=== PATIENT | female | born 1930 | race Caucasian/White ===

== ENCOUNTER → 2017-03-25 | Outpatient (CLI) | payer OTHER ==
[~2017-03-25] MED LIST: ACET325T96 PO; CALC500C70 PO; DEXL60CA4 PO; LEVO125T5 PO; SIMV20TA2 PO
== END | disposition home or self-care (01) ==
LOC: C.RDSM 14:50
PROVIDERS: ATTEND Physical Medicine & Rehabilitation Sports Medicine
DX: Z96.612 Presence of left artificial shoulder joint (principal)

== ENCOUNTER → 2017-09-23 | Outpatient (CLI) | payer OTHER | END | disposition home or self-care (01) | LOC: C.RDSM 10:46 | PROVIDERS: ATTEND Physical Medicine & Rehabilitation Sports Medicine | DX: M25.512 Pain in left shoulder (principal); Z96.612 Presence of left artificial shoulder joint ==

== ENCOUNTER → 2017-11-26 | Outpatient (CLI) | payer OTHER ==
--- NOTE | 2017-11-27 13:40 | MAMMOGRAPHY REPORT ---
BILATERAL DIGITAL SCREENING MAMMOGRAM WITH CAD: 11/26/2017 CLINICAL HISTORY: Routine screening. Patient has no complaints. TECHNIQUE: Bilateral CC and MLO views were obtained. Current study was also evaluated with a Compute r Aided Detection (CAD) system. COMPARISON: Comparison is made to exams dated: 11/09/2016 mammogram, 10/04/2015 mammogram, 10/01/2014 mammogram, 09/30/2013 mammogram, and 09/29/2012 mammogram - [facility]. BREAST COMPOSITION: There are scattered areas of fibroglandular density in both breasts. FINDINGS: There are stable asymmetries in the right upper outer quadrant. Scattered bilateral benig n round and rim calcifications, and a stable metallic biopsy marker in the right upper outer quadrant . No new suspicious mass, architectural distortion or cluster of microcalcifications is seen. IMPRESSION: ACR BI-RADS CATEGORY 1: NEGATIVE There is no mammographic evidence of malignancy. A 1 year screening mammogram is recommended. The pa tient will receive written notification of the results. Approximately 10% of breast cancers are not detected with mammography. A negative mammographic report should not delay biopsy if a clinically suggestive mass is present. Paty Richards M.D. ay/:11/26/2017 15:59:03 Hand Filer Balance Wheel: Roberta DELCID(R)(M), [facility] letter sent: Normal 1/2 BI-RADS Code: ACR BI-RADS Category 1: Negative
== END | disposition home or self-care (01) ==
LOC: C.MAMM 15:22
PROVIDERS: ATTEND Internal Medicine Critical Care Medicine
DX: Z12.31 Encounter for screening mammogram for malignant neoplasm of breast (principal)

== ENCOUNTER 2018-03-10 11:20 | Emergency (ER) | payer OTHER ==
[~2018-03-10] VITALS: Ht 167.6 cm; Wt 98.0 kg
[~2018-03-10 11:20] MED LIST changes: +ACET-1693 PO; -ACET325T96 PO
[2018-03-10 11:36] VITALS: TEMP 37.4; Ht 167.6 cm; Wt 98.0 kg
--- NOTE | 2018-03-10 13:28 | EMERGENCY ROOM VISIT NOTE ---
History Report prepared by Nagi: Troy Florez Under the Supervision of: Dr. Anamaria Bonilla D.O. First contact with patient: 13:17 Chief Complaint: GI ASSESSMENT Stated Complaint: TESTS FOR DR MEYER Nursing Triage Summary: was sent by Dr Meyer for ?diverticulitis symptoms have been for the past 4 days. lower abdomen pain History of Present Illness The patient is an 87 year old female who presents to the Emergency Room with complaints of a persistent illness that started 3 days ago. She states that after dinner 3 days ago, she felt so tired that she almost could not move from her chair. The patient notes that she had not been moving her bowels well recently which was unusual for her. She says that 2 days ago, she started running a temperature up to 100, and has been having pains in her lower abdomen that is fairly constant. She adds that she could have a bowel movement, but had to strain. However, yesterday morning, her bowels started loosening up, and she had some diarrhea with associated lightheadedness and weakness. She adds that she has been feeling a bit nauseous. She denies any vomiting, back pain, or urinary symptoms. The patient states that this morning she woke up around 0530 and had a bowel movement, but it was "like little animal crackers". She scheduled an appointment with Dr. Meyer this morning, and saw Dr. Meyer this morning, and was then sent here for rule-out diverticulitis. She notes no history of diverticulitis. She notes nothing out of the ordinary recently, including any new foods, or recent travels. Source of History: patient Onset: 3 days ago Position: other (global) Quality: other (illness) Associated Symptoms: + fevers, + nausea, + abdominal pain (lower), + diarrhea, + fatigue, + weakness, No vomiting, No back pain, No urinary symptoms Note: Lightheadedness. Review of Systems See HPI for pertinent positives & negatives. A total of 10 systems reviewed and were otherwise negative. Past Medical & Surgical Medical Problems: (1) DJD of shoulder (2) Hypothyroidism Family History FH: lung disease Social History Smoking Status: Never Smoker Drug Use: none Marital Status: Housing Status: lives with family Occupation Status: retired Current/Historical Medications Scheduled Calcium/Vitamin D (Os-Cordell 500 Plus D), 1 TABLET PO HS Dexlansoprazole (Dexilant), 60 MG PO QAM Levothyroxine Sodium (Levothyroxine Sodium), 1 TAB PO QAM Simvastatin (Zocor), 20 MG PO HS Scheduled PRN Acetaminophen Tab (Tylenol), 650 MG PO DIRECTED PRN for Pain or Fever Allergies Coded Allergies: Penicillins (Verified Allergy, Intermediate, RASH, 03/10/18) RASH Adhesives (Verified Allergy, Unknown, ADHESIVE TAPE-rash redness, 03/10/18) Nickel (Verified Allergy, Unknown, IRRITATION, 03/10/18) Oxycodone (Verified Adverse Reaction, Unknown, SEVERE VOMITING, 03/10/18) Physical Exam Vital Signs Date Time Temp Pulse Resp B/P (MAP) Pulse Ox O2 Delivery O2 Flow Rate FiO2 03/10/18 17:08 76 16 153/77 94 03/10/18 15:22 85 16 168/79 97 Room Air 03/10/18 13:06 76 16 150/74 96 03/10/18 11:36 37.4 87 18 131/82 95 Room Air Physical Exam GENERAL: alert, well appearing, well nourished, no distress, non-toxic EYE EXAM: normal conjunctiva, PERRL and EOM's grossly intact OROPHARYNX: no exudate, no erythema, lips, buccal mucosa, and tongue normal and mucous membranes are moist NECK: supple, no nuchal rigidity, no adenopathy, non-tender LUNGS: Clear to auscultation. Normal chest wall mechanics, no w/r/r HEART: no murmurs, S1 normal and S2 normal ABDOMEN: abdomen soft, non-tender, normo-active bowel sounds, no masses, no rebound or guarding. BACK: Back is symmetrical on inspection and there is no deformity, no midline tenderness, no CVA tenderness. SKIN: no rashes and no bruising UPPER EXTREMITIES: upper extremities are grossly normal. FROM, nml pulses. LOWER EXTREMITIES: No pitting edema. FROM, nml pulses. NEURO EXAM: Normal sensorium, cranial nerves II-XII grossly intact, normal speech, no gross weakness of arms, no gross weakness of legs. Medical Decision & Procedures ER Provider Diagnostic Interpretation: CT results have been interpreted by the radiologist and reviewed by me. ABD/PELVIS IV CONTRAST ONLY CLINICAL HISTORY: 87 years-old Female presenting with lower abd pain, nausea. TECHNIQUE: Multidetector CT of the abdomen and pelvis was performed after the administration of intravenous contrast. IV contrast: 117 mL of Optiray 320. A dose lowering technique was used consistent with the principles of ALARA (as low as reasonably achievable). COMPARISON: None. CT DOSE (mGy.cm): The estimated cumulative dose is 722.73 mGy.cm. FINDINGS: Mud Trucker topogram: Bilateral total hip arthroplasties. Lung bases: Minimal basilar opacities, likely atelectasis. Normal heart size. No pericardial or pleural effusion. Liver: Normal morphology. No liver lesion. Patent hepatic vasculature. Biliary: No intrahepatic or extrahepatic biliary ductal dilatation. Normal gallbladder. Pancreas: Mild parenchymal atrophy. Spleen: Normal. Adrenal glands: Normal. Kidneys and ureters: Several hypodensities noted in the left kidney, indeterminate but likely simple cysts. No nephrolithiasis. No hydronephrosis. Bilateral extrarenal pelvises. Evaluation of the distal ureters is limited due to extensive streak artifact in the pelvis. Allowing for this, ureters normal. Bladder: Grossly normal allowing for streak artifact. Pelvic organs: Uterus and ovaries are grossly normal allowing for streak artifact. Bowel: Limited diverticulosis of the distal sigmoid colon. No pericolonic fat infiltration. The appendix is normal. No bowel obstruction. Peritoneal cavity: No free fluid or intraperitoneal gas. Mild infiltration of the small bowel mesentery with associated subcentimeter reactive lymph nodes, likely indicating mesenteric panniculitis. Lymph nodes: No pathologically enlarged lymph nodes in abdomen or pelvis. Vasculature: Atherosclerosis of the normal caliber abdominal aorta. IVC patent. Abdominal wall: Normal. Musculoskeletal: Degenerative changes of the spine. Bilateral total hip arthroplasties. Radiolucency surrounds the acetabular component and screw in the right hip. IMPRESSION: 1. Limited diverticulosis of the distal sigmoid colon without evidence of diverticulitis. 2. 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 This could be variably symptomatic. 3. Radiolucency surrounds the acetabular component and screw in the right hip prosthesis. This raises concern for osteolysis/particle disease. 4. Evaluation of the pelvic organs is limited due to extensive streak artifact arising from the bilateral total hip arthroplasties. Electronically signed by: Brandon Pichardo M.D. 03/10/2018 3:25 PM Dictated Date/Time: 03/10/2018 3:20 PM Laboratory Results 03/10/18 13:15 Red Blood Count 4.39, Mean Corpuscular Volume 93.2, Mean Corpuscular Hemoglobin 31.2, Mean Corpuscular Hemoglobin Concent 33.5, Mean Platelet Volume 10.4, Neutrophils (%) (Auto) 63.9, Lymphocytes (%) (Auto) 16.2, Monocytes (%) (Auto) 17.7, Eosinophils (%) (Auto) 1.8, Basophils (%) (Auto) 0.3, Neutrophils # (Auto ) 4.38, Lymphocytes # (Auto) 1.11, Monocytes # (Auto) 1.21, Eosinophils # (Auto ) 0.12, Basophils # (Auto) 0.02 03/10/18 13:15 Test 03/10/18 13:15 03/10/18 13:50 03/10/18 15:44 White Blood Count 6.85 K/uL (4.8-10.8) Red Blood Count 4.39 M/uL (4.2-5.4) Hemoglobin 13.7 g/dL (12.0-16.0) Hematocrit 40.9 % (37-47) Mean Corpuscular Volume 93.2 fL (80-100) Mean Corpuscular Hemoglobin 31.2 pg (25-34) Mean Corpuscular Hemoglobin Concent 33.5 g/dl (32-36) Platelet Count 283 K/uL (130-400) Mean Platelet Volume 10.4 fL (7.4-10.4) Neutrophils (%) (Auto) 63.9 % Lymphocytes (%) (Auto) 16.2 % Monocytes (%) (Auto) 17.7 % Eosinophils (%) (Auto) 1.8 % Basophils (%) (Auto) 0.3 % Neutrophils # (Auto) 4.38 K/uL (1.4-6.5) Lymphocytes # (Auto) 1.11 K/uL (1.2-3.4) Monocytes # (Auto) 1.21 K/uL (0.11-0.59) Eosinophils # (Auto) 0.12 K/uL (0-0.5) Basophils # (Auto) 0.02 K/uL (0-0.2) RDW Standard Deviation 48.2 fL (36.4-46.3) RDW Coefficient of Variation 14.1 % (11.5-14.5) Immature Granulocyte % (Auto) 0.1 % Immature Granulocyte # (Auto) 0.01 K/uL (0.00-0.02) Prothrombin Time 9.7 SECONDS (9.0-12.0) Prothromb Time International Ratio 0.9 (0.9-1.1) Anion Gap 10.0 mmol/L (3-11) Est Creatinine Clear Calc Drug Dose 57.8 ml/min Estimated GFR () 73.5 Estimated GFR (Non- 63.4 BUN/Creatinine Ratio 11.8 (10-20) Calcium Level 8.9 mg/dl (8.5-10.1) Total Bilirubin 0.2 mg/dl (0.2-1) Aspartate Amino Transf (AST/SGOT) 30 U/L (15-37) Alanine Aminotransferase (ALT/SGPT) 22 U/L (12-78) Alkaline Phosphatase 96 U/L (45-117) Troponin I < 0.015 ng/ml (0-0.045) Total Protein 7.6 gm/dl (6.4-8.2) Albumin 3.6 gm/dl (3.4-5.0) Globulin 4.0 gm/dl (2.5-4.0) Albumin/Globulin Ratio 0.9 (0.9-2) Lipase 139 U/L (73-393) Bedside Lactic Acid Venous 0.48 mmol/L (0.90-1.70) Urine Color YELLOW Urine Appearance CLEAR (CLEAR) Urine pH 5.5 (4.5-7.5) Urine Specific [place] 1.019 (1.000-1.030) Urine Protein NEG (NEG) Urine Glucose (UA) NEG (NEG) Urine Ketones NEG (NEG) Urine Occult Blood NEG (NEG) Urine Nitrite NEG (NEG) Urine Bilirubin NEG (NEG) Urine Urobilinogen NEG (NEG) Urine Leukocyte Esterase NEG (NEG) Laboratory results per my review. Medications Administered Medications (Trade) Dose Ordered Sig/Casimiro Route Start Time Stop Time Status Last Admin Dose Admin Sodium Chloride 1,000 ml @ 250 mls/hr Q4H STAT IV 03/10/18 13:35 03/10/18 17:31 DC 4/9/18 13:58 250 MLS/HR ECG Per My Interpretation Indication: nausea Rate (beats per minute): 71 Rhythm: normal sinus Findings: PVC, no acute ischemic change, other (normal axis, normal intervals) ED Course 1319: The patient was evaluated in room A10. A complete history and physical exam was performed. 1335: NSS 1000 ml @ 250 mls/hr IV. 1645: Upon reevaluation, the patient is feeling better. I discussed the findings and the treatment plan with the patient. She verbalizes agreement and understanding. She will be discharged home. Medical Decision Differential diagnoses includes but is not limited to gastritis, peptic ulcer disease, GERD, gallbladder disease, pancreatitis, small bowel obstruction, acute coronary syndrome, pericarditis, ischemic bowel, irritable bowel disease, irritable bowel syndrome, appendicitis, diverticulitis, malignancy, hernia, urinary tract infection, torsion, perforation, trauma, infectious. Patient well-appearing here despite complaints. Patient made aware of all labs and imaging findings. Vital signs stable throughout, patient afebrile. Patient offered additional pain and nausea medication which she declined. Discussed with patient continued use of routine medications, close follow-up with family doctor, symptoms to watch and return for, diet and hydration, she verbalized understanding was agreeable with plan. Patient tolerated p.o. here without any recurrent symptoms, was well-appearing at time of discharge. I do not suspect other occult vascular etiology, no evidence of perforation, GI bleed , or other occult infection. No evidence of UTI, I do not suspect other pathology. Medication Reconcilliation Current Medication List: was personally reviewed by me Blood Pressure Screening Patient's blood pressure: Elevated blood pressure Blood pressure disposition: Elevated BP felt to be situational Impression Primary Impression: Abdominal pain Additional Impression: Mesenteric panniculitis Scribe Attestation The scribe's documentation has been prepared under my direction and personally reviewed by me in its entirety. I confirm that the note above accurately reflects all work, treatment, procedures, and medical decision making performed by me. Departure Information Dispostion Home / Self-Care Referrals Brandon Meyer M.D. (PCP) Patient Instructions My [facility] Additional Instructions Please drink plenty of clear liquids and frequent intervals to stay well- hydrated. You may eat as tolerated. Please continue your regular medications as prescribed. Please call follow-up with your family doctor to assure that you are getting better. If you have any worsening pain, develop worsening nausea or vomiting, fevers or chills, noticed black or bloody stools, have worsening diarrhea, difficulty urinating, or any other new concerns, please return to the emergency room. Problem Qualifiers Primary Impression: Abdominal pain Abdominal location: lower abdomen, unspecified Qualified Codes: R10.30 - Lower abdominal pain, unspecified
[2018-03-10] MEDS ORDERED: SODIUM CHLORIDE 0.9% 1000ML 1,000 ML IV STA (13:35)
[2018-03-10 13:45] LABS: BASO % 0.3 %; BASO ABS # 0.02 K/uL (0-0.2); EOS % 1.8 %; EOS ABS # 0.12 K/uL (0-0.5); HEMATOCRIT 40.9 % (37-47); HEMOGLOBIN 13.7 g/dL (12.0-16.0); IG# 0.01 K/uL (0.00-0.02); LYMPH % 16.2 %; LYMPH ABS # 1.11 K/uL (1.2-3.4); MEAN CELL VOLUME 93.2 fL (80-100); MEAN CORPUSCULAR HEMOGLOBIN 31.2 pg (25-34); MEAN CORPUSCULAR HGB CONC 33.5 g/dl (32-36); MEAN PLATELET VOLUME 10.4 fL (7.4-10.4); MONO % 17.7 %; MONO ABS # 1.21 K/uL (0.11-0.59); NEUT % 63.9 %; NEUT ABS # 4.38 K/uL (1.4-6.5); PLATELET COUNT 283 K/uL (130-400); RED CELL DISTRIBUTION WIDTH CV 14.1 % (11.5-14.5); RED CELL DISTRIBUTION WIDTH SD 48.2 fL (36.4-46.3); WHITE BLOOD COUNT 6.85 K/uL (4.8-10.8)
[2018-03-10] MEDS ORDERED: OPTIRAY 320 IV PRN (13:45)
[2018-03-10 13:50] LABS: INR 0.9 (0.9-1.1)
[2018-03-10 13:56] LABS: LIPASE 139 U/L (73-393)
[2018-03-10 14:26] LABS: ALBUMIN 3.6 gm/dl (3.4-5.0); CALCIUM 8.9 mg/dl (8.5-10.1); CREATININE 0.84 mg/dl (0.60-1.20); POTASSIUM 3.8 mmol/L (3.5-5.1)
[2018-03-10 14:29] LABS: TOTAL PROTEIN 7.6 gm/dl (6.4-8.2)
--- NOTE | 2018-03-10 15:27 | DIAGNOSTIC IMAGING REPORT ---
ABD/PELVIS IV CONTRAST ONLY CLINICAL HISTORY: 87 years-old Female presenting with lower abd pain, nausea. TECHNIQUE: Multidetector CT of the abdomen and pelvis was performed after the administration of intravenous contrast. IV contrast: 117 mL of Optiray 320. A dose lowering technique was used consistent with the principles of ALARA (as low as reasonably achievable). COMPARISON: None. CT DOSE (mGy.cm): The estimated cumulative dose is 722.73 mGy.cm. FINDINGS: Medical Assisting Program Director topogram: Bilateral total hip arthroplasties. Lung bases: Minimal basilar opacities, likely atelectasis. Normal heart size. No pericardial or pleural effusion. Liver: Normal morphology. No liver lesion. Patent hepatic vasculature. Biliary: No intrahepatic or extrahepatic biliary ductal dilatation. Normal gallbladder. Pancreas: Mild parenchymal atrophy. Spleen: Normal. Adrenal glands: Normal. Kidneys and ureters: Several hypodensities noted in the left kidney, indeterminate but likely simple cysts. No nephrolithiasis. No hydronephrosis. Bilateral extrarenal pelvises. Evaluation of the distal ureters is limited due to extensive streak artifact in the pelvis. Allowing for this, ureters normal. Bladder: Grossly normal allowing for streak artifact. Pelvic organs: Uterus and ovaries are grossly normal allowing for streak artifact. Bowel: Limited diverticulosis of the distal sigmoid colon. No pericolonic fat infiltration. The appendix is normal. No bowel obstruction. Peritoneal cavity: No free fluid or intraperitoneal gas. Mild infiltration of the small bowel mesentery with associated subcentimeter reactive lymph nodes, likely indicating mesenteric panniculitis. Lymph nodes: No pathologically enlarged lymph nodes in abdomen or pelvis. Vasculature: Atherosclerosis of the normal caliber abdominal aorta. IVC patent. Abdominal wall: Normal. Musculoskeletal: Degenerative changes of the spine. Bilateral total hip arthroplasties. Radiolucency surrounds the acetabular component and screw in the right hip. IMPRESSION: 1. Limited diverticulosis of the distal sigmoid colon without evidence of diverticulitis. 2. 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 This could be variably symptomatic. 3. Radiolucency surrounds the acetabular component and screw in the right hip prosthesis. This raises concern for osteolysis/particle disease. 4. Evaluation of the pelvic organs is limited due to extensive streak artifact arising from the bilateral total hip arthroplasties. Electronically signed by: Brandon Pichardo M.D. 03/10/2018 3:25 PM Dictated Date/Time: 03/10/2018 3:20 PM
[2018-03-10 17:08] VITALS: BP 153/77; PULSE 76; O2SAT 94
== END 2018-03-10 17:09 | disposition home or self-care (01) ==
LOC: C.EDB 11:21 → C.EDA 17:09
DX: R10.30 Lower abdominal pain, unspecified (principal); K65.4 Sclerosing mesenteritis; E03.9 Hypothyroidism, unspecified; R50.9 Fever, unspecified

== ENCOUNTER 2018-03-12 10:38 | Emergency (ER) | payer OTHER ==
[~2018-03-12] VITALS: Ht 167.6 cm; Wt 98.0 kg
[2018-03-12 10:43] VITALS: TEMP 36.8; Ht 167.6 cm; Wt 98.0 kg
[2018-03-12] MEDS ORDERED: SODIUM CHLORIDE 0.9% 1000ML 1,000 ML IV STA (11:27)
[2018-03-12 11:38] LABS: BASO % 0.1 %; BASO ABS # 0.01 K/uL (0-0.2); EOS % 2.4 %; EOS ABS # 0.19 K/uL (0-0.5); HEMATOCRIT 38.1 % (37-47); HEMOGLOBIN 12.8 g/dL (12.0-16.0); IG# 0.01 K/uL (0.00-0.02); LYMPH ABS # 1.59 K/uL (1.2-3.4); MEAN CORPUSCULAR HEMOGLOBIN 30.9 pg (25-34); MEAN CORPUSCULAR HGB CONC 33.6 g/dl (32-36); MEAN PLATELET VOLUME 10.2 fL (7.4-10.4); MONO % 13.1 %; MONO ABS # 1.04 K/uL (0.11-0.59); NEUT % 64.3 %; NEUT ABS # 5.11 K/uL (1.4-6.5); PLATELET COUNT 283 K/uL (130-400); RED CELL DISTRIBUTION WIDTH CV 13.9 % (11.5-14.5); RED CELL DISTRIBUTION WIDTH SD 46.6 fL (36.4-46.3); WHITE BLOOD COUNT 7.95 K/uL (4.8-10.8)
[2018-03-12 11:45] LABS: ALBUMIN 3.5 gm/dl (3.4-5.0); ALT/SGPT 30 U/L (12-78); BLOOD UREA NITROGEN 9 mg/dl (7-18); CALCIUM 8.6 mg/dl (8.5-10.1); CARBON DIOXIDE 26 mmol/L (21-32); CREATININE 0.89 mg/dl (0.60-1.20); GLUCOSE 99 mg/dl (70-99); LIPASE 189 U/L (73-393); POTASSIUM 3.8 mmol/L (3.5-5.1); SODIUM 136 mmol/L (136-145)
[2018-03-12 11:48] LABS: INR 0.9 (0.9-1.1); PTT PATIENT 25.9 SECONDS (21.0-31.0)
[2018-03-12 11:50] LABS: ALKALINE PHOSPHATASE 101 U/L (45-117); AST/SGOT 36 U/L (15-37); TOTAL PROTEIN 7.5 gm/dl (6.4-8.2)
[2018-03-12 12:59] VITALS: BP 149/63; PULSE 62; O2SAT 94
--- NOTE | 2018-03-12 16:38 | EMERGENCY ROOM VISIT NOTE ---
History Report prepared by Nagi: Marcos Calvert Under the Supervision of: Dr. Mychal Ness M.D. First contact with patient: 11:11 Chief Complaint: RECTAL BLEEDING Stated Complaint: DIARRHEA WITH BLOOD Nursing Triage Summary: Patient c/o of diarrhea and abdominal pain x 5 days and rectal bleeding 30 minutes [employer]. History of Present Illness The patient is an 87 year old female who presents to the Emergency Room with complaints of a single episode rectal bleeding that she noticed this morning, a few hours ago. The patient states that her symptoms all started on Saturday, 5 days ago when she felt tired, and abdominal pains. She then developed intermittent diarrhea and noticed some "strange looking stool, that looked like Animal Crackers." The patient came into the ED on Saturday, 2 days ago and had a CT of her abdomen performed. This showed diverticulosis, no rectal exam was performed. The patient had 4 bouts of diarrhea already this morning, the last of which contained blood but not stool. The patient noted that she did have rectal bleeding several years ago when she was diagnosed with hemorrhoids. She denies any recent unexpected weight loss, chest pain, or shortness of breath. She has not traveled recently. No recent unintentional weight loss. Source of History: patient Onset: a few hours ago- rectal bleed, 5 days ago diarrhea/abd pain Position: abdomen Quality: other (Diarrhea/hematochezia) Timing: other (One episode of rectal bleeding) Associated Symptoms: + abdominal pain, No chest pain, No SOB Review of Systems See HPI for pertinent positives and negatives. A total of ten systems were reviewed and were otherwise negative. Past Medical & Surgical Medical Problems: (1) DJD of shoulder (2) Hypothyroidism Family History FH: lung disease Social History Smoking Status: Former Smoker Drug Use: none Marital Status: Housing Status: lives with family Occupation Status: retired Current/Historical Medications Scheduled Calcium/Vitamin D (Os-Cordell 500 Plus D), 1 TABLET PO HS Dexlansoprazole (Dexilant), 60 MG PO QAM Levothyroxine Sodium (Levothyroxine Sodium), 125 MCG PO QAM Simvastatin (Zocor), 20 MG PO HS Scheduled PRN Acetaminophen Tab (Tylenol), 650 MG PO DIRECTED PRN for Pain or Fever Allergies Coded Allergies: Penicillins (Verified Allergy, Intermediate, RASH, 03/12/18) RASH Adhesives (Verified Allergy, Unknown, ADHESIVE TAPE-rash redness, 03/12/18) Nickel (Verified Allergy, Unknown, IRRITATION, 03/12/18) Oxycodone (Verified Adverse Reaction, Unknown, SEVERE VOMITING, 03/12/18) Physical Exam Vital Signs Date Time Temp Pulse Resp B/P (MAP) Pulse Ox O2 Delivery O2 Flow Rate FiO2 03/12/18 12:59 62 16 149/63 94 03/12/18 12:02 61 03/12/18 11:45 66 16 131/68 97 Room Air 03/12/18 10:43 36.8 76 18 130/68 93 Room Air Physical Exam Physical Exam GENERAL: She is oriented to person, place, and time. She appears well- developed and well-nourished. She does not appear distressed. ____ HENT: Exam performed. Head: Normocephalic and atraumatic. Right Ear: External ear normal. No mastoid tenderness. Left Ear: External ear normal. No mastoid tenderness. Mouth/Throat: The oropharynx is clear and moist. No trismus in the jaw. No dental abscesses or uvula swelling. No oropharyngeal exudate or tonsillar abscesses. ____ EYES: Conjunctivae and EOM are normal. Pupils are equal, round, and reactive to light. Right eye exhibits no discharge. Left eye exhibits no discharge. No scleral icterus. ____ NECK: Normal range of motion. Neck supple. No JVD present. No spinous process tenderness present. No carotid bruit present. No rigidity. No tracheal deviation and normal range of motion present. No Brudzinski's sign and no Kernig 's sign noted. ____ CV: Normal rate, regular rhythm, normal heart sounds and intact distal pulses. There is no peripheral edema. Palpable radial pulses bue. ____ PULM/CHEST: Effort normal and breath sounds normal. No respiratory distress. No stridor. She has no wheezes. She has no rales. Chest Wall: She exhibits no tenderness. ____ ABD: The abdomen is soft. Bowel sounds are normal. She has no distension. No mass is present. There is no tenderness. There is no rebound, no guarding, no Mann's sign and no tenderness at McBurney's point. Rovsig negative MUSC/SKEL: Normal range of motion. There is no peripheral edema, tenderness or deformity. LYMPH: No cervical adenopathy. ____ NEURO: She is alert and oriented to person, place, and time. She has normal strength. No cranial nerve deficit or sensory deficit. Coordination and gait normal. GCS eye subscore is 4. GCS verbal subscore is 5. GCS motor subscore is 6. Cerebellar tests wnl. ____ SKIN: Skin is warm and dry. She is not diaphoretic. ____ PSYCH: She has a normal mood and affect. Her behavior is normal. Judgment and thought content normal. ____ RECTAL: small external and internal hemorrhoids. Hemoccult negative. No bright red blood per rectum Medical Decision & Procedures Laboratory Results 03/12/18 11:00 Red Blood Count 4.14, Mean Corpuscular Volume 92.0, Mean Corpuscular Hemoglobin 30.9, Mean Corpuscular Hemoglobin Concent 33.6, Mean Platelet Volume 10.2, Neutrophils (%) (Auto) 64.3, Lymphocytes (%) (Auto) 20.0, Monocytes (%) (Auto) 13.1, Eosinophils (%) (Auto) 2.4, Basophils (%) (Auto) 0.1, Neutrophils # (Auto ) 5.11, Lymphocytes # (Auto) 1.59, Monocytes # (Auto) 1.04, Eosinophils # (Auto ) 0.19, Basophils # (Auto) 0.01 03/12/18 11:00 Test 03/12/18 11:00 03/12/18 12:02 White Blood Count 7.95 K/uL (4.8-10.8) Red Blood Count 4.14 M/uL (4.2-5.4) Hemoglobin 12.8 g/dL (12.0-16.0) Hematocrit 38.1 % (37-47) Mean Corpuscular Volume 92.0 fL (80-100) Mean Corpuscular Hemoglobin 30.9 pg (25-34) Mean Corpuscular Hemoglobin Concent 33.6 g/dl (32-36) Platelet Count 283 K/uL (130-400) Mean Platelet Volume 10.2 fL (7.4-10.4) Neutrophils (%) (Auto) 64.3 % Lymphocytes (%) (Auto) 20.0 % Monocytes (%) (Auto) 13.1 % Eosinophils (%) (Auto) 2.4 % Basophils (%) (Auto) 0.1 % Neutrophils # (Auto) 5.11 K/uL (1.4-6.5) Lymphocytes # (Auto) 1.59 K/uL (1.2-3.4) Monocytes # (Auto) 1.04 K/uL (0.11-0.59) Eosinophils # (Auto) 0.19 K/uL (0-0.5) Basophils # (Auto) 0.01 K/uL (0-0.2) RDW Standard Deviation 46.6 fL (36.4-46.3) RDW Coefficient of Variation 13.9 % (11.5-14.5) Immature Granulocyte % (Auto) 0.1 % Immature Granulocyte # (Auto) 0.01 K/uL (0.00-0.02) Prothrombin Time 9.5 SECONDS (9.0-12.0) Prothromb Time International Ratio 0.9 (0.9-1.1) Activated Partial Thromboplast Time 25.9 SECONDS (21.0-31.0) Partial Thromboplastin Ratio 1.0 Anion Gap 7.0 mmol/L (3-11) Est Creatinine Clear Calc Drug Dose 54.5 ml/min Estimated GFR () 68.5 Estimated GFR (Non- 59.1 BUN/Creatinine Ratio 10.0 (10-20) Calcium Level 8.6 mg/dl (8.5-10.1) Total Bilirubin 0.3 mg/dl (0.2-1) Direct Bilirubin < 0.1 mg/dl (0-0.2) Aspartate Amino Transf (AST/SGOT) 36 U/L (15-37) Alanine Aminotransferase (ALT/SGPT) 30 U/L (12-78) Alkaline Phosphatase 101 U/L (45-117) Troponin I < 0.015 ng/ml (0-0.045) Total Protein 7.5 gm/dl (6.4-8.2) Albumin 3.5 gm/dl (3.4-5.0) Lipase 189 U/L (73-393) Bedside Lactic Acid Venous 0.79 mmol/L (0.90-1.70) Laboratory results reviewed by Medications Administered Medications (Trade) Dose Ordered Sig/Casimiro Route Start Time Stop Time Status Last Admin Dose Admin Sodium Chloride 1,000 ml @ 125 mls/hr Q8H STAT IV 03/12/18 11:27 03/12/18 13:25 DC 03/12/18 11:50 125 MLS/HR ECG Per My Interpretation Indication: other (Rectal bleed) Rate (beats per minute): 65 Rhythm: normal sinus Findings: other (QRS, QTC, [place] within normal limits, no OLGA LIDIA/STD) ED Course 1124: The patient was evaluated in room C4. A complete history and physical exam was performed. EMR reviewed. Patient was seen in the emergency department on March 10, 2018, 2 days ago, at that point her labs were within normal limits, no white count, hemoglobin 13.7, CT of the abdomen showed diverticulosis, no diverticulitis, no acute processes. 1127: Ordered Sodium Chloride 1000 mL @ 125 mL/hr IV. 1236: I reevaluated the patient. Vital signs stable. Repeat abdominal exam shows no pain on palpation of the abdomen, no need for repeat CT of the abdomen. Her labs are within normal limits, hemoglobin of 12.8, at baseline per patient's records. No active hematochezia or melena while in the emergency department, rectal exam negative. Follow-up PCP 1-7 days. DISCHARGE - Plan of care discussed with patient and questions answered. The patient was given both verbal and printed discharge instructions. The patient verbalized understanding and ability to comply. The patient is to seek outpatient follow up as noted in the discharge instructions. The patient verbalized understanding and ability to comply. The patient is discharged in stable condition. The patient was instructed to return for worsening symptoms. Medical Decision Vital signs stable. Repeat abdominal exam shows no pain on palpation of the abdomen, no need for repeat CT of the abdomen. Her labs are within normal limits , hemoglobin of 12.8, at baseline per patient's records. No active hematochezia or melena while in the emergency department, rectal exam negative. Follow-up PCP 1-7 days. DISCHARGE - Plan of care discussed with patient and questions answered. The patient was given both verbal and printed discharge instructions. The patient verbalized understanding and ability to comply. The patient is to seek outpatient follow up as noted in the discharge instructions. The patient verbalized understanding and ability to comply. The patient is discharged in stable condition. The patient was instructed to return for worsening symptoms. Medication Reconcilliation Current Medication List: was personally reviewed by me Blood Pressure Screening Patient's blood pressure: Elevated blood pressure Blood pressure disposition: Elevated BP felt to be situational Impression Primary Impression: Lower GI bleed Additional Impression: Hemorrhoid Scribe Attestation The scribe's documentation has been prepared under my direction and personally reviewed by me in its entirety. I confirm that the note above accurately reflects all work, treatment, procedures, and medical decision making performed by me. The chart was completed utilizing [employer] Speech voice recognition software. Grammatical errors, random word insertions, pronoun errors, and incomplete sentences are an occasional consequence of this system due to software limitations, ambient noise, and hardware issues. Any formal questions or concerns about the content, text, or information contained within the body of this dictation should be directly addressed to the physician for clarification. Departure Information Dispostion Home / Self-Care Referrals Brandon Coughlin M.D. (PCP) Forms HOME CARE DOCUMENTATION FORM, IMPORTANT VISIT INFORMATION, WORK / SCHOOL INSTRUCTIONS Patient Instructions My [facility] Additional Instructions Return to the emergency department if you develop fever greater than 100.4, continued blood loss to your stools, black stools, blood in her vomit, blood in urine, worsening abdominal pain. Problem Qualifiers Additional Impression: Hemorrhoid Hemorrhoid type: unspecified Qualified Codes: K64.9 - Unspecified hemorrhoids
== END 2018-03-12 13:00 | disposition home or self-care (01) ==
LOC: C.EDB 10:40 → C.EDC 13:00
DX: K92.2 Gastrointestinal hemorrhage, unspecified (principal); K64.9 Unspecified hemorrhoids; E03.9 Hypothyroidism, unspecified; Z79.899 Other long term (current) drug therapy; Z87.891 Personal history of nicotine dependence; Z88.0 Allergy status to penicillin; Z91.048 Other nonmedicinal substance allergy status; Z88.5 Allergy status to narcotic agent

== ENCOUNTER 2020-01-02 10:49 | Inpatient (IN) ==
[2020-01-02] MEDS ORDERED: METOPROLOL TARTRATE 1 MG/ML VIAL IV STA (11:16)
[2020-01-02] MEDS ORDERED: METOPROLOL TARTRATE 1 MG/ML VIAL IV ONE (11:16)
[2020-01-02] MEDS ORDERED: LORazepam 0.5 MG/1 ML VIAL IV STA (11:20)
[2020-01-02 11:26] LABS: Basophils # (auto) 0.04 K/uL (0-0.2); Basophils % (auto) 0.4 %; Eosinophils # (auto) 0.13 K/uL (0-0.5); Eosinophils % (auto) 1.4 %; Hematocrit (blood only) 40.9 % (37-47); Hemoglobin 13.6 g/dL (12.0-16.0); Immature Granulocytes # (auto) 0.01 K/uL (0.00-0.02); Immature Granulocytes % (auto) 0.1 %; Lymphocytes # (auto) 1.75 K/uL (1.2-3.4); Lymphocytes % (auto) 18.4 %; Mean Corpuscular Hemoglobin 31.8 pg (25-34); Mean Corpuscular Hgb Conc 33.3 g/dL (32-36); Mean Corpuscular Volume 95.6 fL (80-100); Mean Platelet Volume 10.4 fL (7.4-10.4); Monocytes # (auto) 1.45 K/uL (0.11-0.59); Monocytes % (auto) 15.3 %; Neutrophils # (auto) 6.12 K/uL (1.4-6.5); Neutrophils % (auto) 64.4 %; Platelet Count 321 K/uL (130-400); RDW Coefficient of Variation 13.9 % (11.5-14.5); RDW Standard Deviation 47.8 fL (36.4-46.3); Red Blood Count 4.28 M/uL (4.2-5.4)
[2020-01-02] MEDS: dilTIAZem HCL 125 MG in DEXTROSE 5% 100 ML IV SCH (11:28)
[2020-01-02 11:35] LABS: Partial Thromboplastin Time 26.2 Seconds (21.0-31.0); Prothrombin Time 9.9 Seconds (9.0-12.0)
[2020-01-02 11:40] LABS: Albumin Level 3.4 gm/dl (3.4-5.0); BUN Creatinine Ratio 18.7 (10-20); Creatinine Clr Calc Pharmacy 45.3 ml/min; Est GFR (African American) 55.9; Est GFR (Non-African American) 48.3; Magnesium 1.9 mg/dl (1.8-2.4)
[2020-01-02 11:43] LABS: Albumin Globulin Ratio 0.8 (0.9-2); Bilirubin,Total 0.5 mg/dl (0.2-1); Globulin 4.2 gm/dl (2.5-4.0); Total Protein 7.6 gm/dl (6.4-8.2); Troponin I 0.015 ng/ml (0-0.045)
--- NOTE | 2020-01-02 11:43 | Emergency Department Note ---
ED Visit Note I saw this patient with Dr. Ness. Please see his note for any medical decision making. . Resident Activity Tracking Resident Involvement: Resident Care Provided Care Provided: Adult ED
--- NOTE | 2020-01-02 11:59 | XRay Report ---
XR chest 1V portable HISTORY: Atypical Chest Pain COMPARISON: Chest 09/27/2019. FINDINGS: The heart remains mildly enlarged. No pneumothorax. No pleural effusions. No new focal lung consolidations to suggest pneumonia. The left shoulder prosthesis. No evidence for pulmonary edema. IMPRESSION: No significant change compared to the prior study. No acute process. ACT 112: Negative or not required by law. Electronically signed by: Que Negro M.D. 01/02/2020 11:57 AM
[2020-01-02] MEDS ORDERED: SODIUM CHLORIDE 0.9% 1000ML 1,000 ML IV SCH (13:00)
[2020-01-02] MEDS ORDERED: OPTIRAY 320 125ml IV PRN (13:43)
--- NOTE | 2020-01-02 14:07 | CT Scan Report ---
CHEST CTA for PULMONARY ARTERIES CT DOSE: 487.41 mGy.cm HISTORY: Atypical chest pain. TECHNIQUE: Multiaxial CT images of the chest were performed following the intravenous administration of contrast to evaluate the pulmonary arteries. Maximal intensity projection images were also obtaine d. A dose lowering technique was utilized adhering to the principles of ALARA. COMPARISON STUDY: Chest CTA 08/09/2018. FINDINGS: Normal caliber thoracic aorta. There is no contrast within the aorta to assess for a dissec tion. The heart is normal in size. No pleural or pericardial effusions. Fat stranding within the left axilla without lymphadenopathy. There is also mild left supraclavicular/neck base fat stranding. Med iastinal lymph nodes measure subcentimeter in short axis diameter. No hilar lymphadenopathy. Normal e sophagus. Tiny hiatus hernia. The visualized liver and spleen are unremarkable. There is a left shoul alyssa prosthesis. No pneumothorax. The central airways are patent. Mild interlobular septal thickening, most pronounced at the lung bases. This is similar to the prior study and could be chronic or repres ent mild congestive change. No filling defects within the pulmonary arteries to suggest pulmonary emb olus. There is a bilobed 6 mm nodule within the right lower lobe in image 104. This remains stable co mpared to a 2012 study and is therefore considered to be benign. IMPRESSION: 1. No evidence for pulmonary embolus. 2. No change in the interstitial thickening which is likely chronic. Mild congestive change could als o have a similar appearance but is considered less likely. 3. Stable benign 6 mm nodule within the right lower lobe. 4. Mild subcutaneous fat stranding within the left neck base and left axilla. This is nonspecific but could be due to prior intervention. Clinical correlation recommended. ACT 112: Negative or not required by law. Electronically signed by: Que Negro M.D. 01/02/2020 2:06 PM
--- NOTE | 2020-01-02 14:47 | History & Physical Report ---
Date of Service January 02, 2020 Assessment & Plan (1) Atrial fibrillation with RVR: -Admit to telemetry -Check 2D echo -Start on heparin drip, continue on Cardizem drip -New onset A. fib, no history of cardiac arrhythmia in the past. Patient is a chads score of 1 -Trend troponins, initial negative -If patient arrhythmia returns to NSR, may initiate anticoagulation with blood thinner like eliquis or xarelto and be able to d/c with f/u with PCP within 3 days. -Pt dropped sats into the high 80s with speaking during exam, continue to monitor, place on 2 L O2, does not wear at baseline (2) HLD (hyperlipidemia): -Continue simvastatin 20 mg HS (3) Hypothyroidism: -Continue levothyroxine 125 mcg daily (4) Constipation: -Continue Benefiber, Dulcolax p.o., prune daily (5) Hypoxia: - Pt became hypoxic while talking at bedside withsats into 86-87% on RA, will place NC at 2 L via NC - Check o2 sats qshift (6) Pulmonary nodule: - Noted: 6mm RLL on CTA which was neg for PE. Follow up as outpt. (7) DVT prophylaxis: - heparin gtt CODE: DNR Dispo: From the [facility] at [facility], admit, likely to remain in hospital for 1 day. History of Present Illness Primary Care Provider: Brandon Coughlin MD This is an 89-year-old female with past medical history of patient, GERD, hyperlipidemia, and vitamin D deficiency and very remote smoking history where she smoked for 10 years 1 PPD quit in 1959, who presents with acute onset of weakness, fatigue on exertion, nausea, and intermittent clamminess over the past 3 days. Patient reports it was worse today therefore her brought her to the ER. They are residents at the [facility], and follow with Dr. Fonseca. Patient is found to be in A. fib with RVR with a heart rate in the 150s, HR has trended down to the 120s with the initiation of Cardizem drip. Patient denies any chest pain or pressure, no shortness of breath. She reports having issues with constipation and takes Benefiber, stool softener, and eats 1 prunes daily to keep her bowels regular. She denies any other acute complaints. Allergies Allergy/AdvReac Type Severity Reaction Status Date / Time Penicillins Allergy Intermediate RASH Verified 01/02/20 12:25 adhesive Allergy Mild ADHESIVE Verified 01/02/20 12:25 TAPE-rash redness nickel Allergy Mild IRRITATION Verified 01/02/20 12:25 oxycodone AdvReac Severe SEVERE Verified 01/02/20 12:25 VOMITING Home Medications Home Medications Medication Instructions Recorded Confirmed Type calcium carbonate-vitamin D3 1 tab PO QAM 08/09/18 01/02/20 History [Calcium 500 With D] levothyroxine 125 mcg PO QAM 08/09/18 01/02/20 History oyyefkevwkbi-mzdv-liens acid 1 tab PO QAM 08/09/18 01/02/20 History [Multi-Day with Iron] simvastatin 20 mg PO PM 08/09/18 01/02/20 History docusate sodium 100 mg PO HS 01/02/20 01/02/20 History pantoprazole 40 mg PO QAM 01/02/20 01/02/20 History wheat dextrin [Benefiber Sugar 3 g PO QAM 01/02/20 01/02/20 History Free (dextrin)] Past Med/Surg History Medical History Chest pain DJD of shoulder GERD (gastroesophageal reflux disease) Hemorrhoid (Acute) Hyperlipidemia Hypothyroidism (Chronic) Hypothyroidism Lower GI bleed (Acute) Palpitations (Acute) Surgical History No pertinent past surgical history Family History Father Myocardial infarction Social History Preferred Language: Algerian Communication Ability: Effective 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 Beliefs That Will Affect Care: None marital status: Current Living Situation: Spouse current occupational status: retired Other Information That Helps Us Care for You: No Feels Safe at Home: Yes Safety Concerns: Feels Safe At This Time Smoking Status: Former smoker Do You Dip or Chew Tobacco: No ; Second Hand Exposure: No ; Tobacco Cessation Education Requested by Patient: No Hx Alcohol Use: No Hx Substance Use: No Review of Systems Review of Systems: Constitutional: + Generalized fatigue, dyspnea on exertion, clamminess intermittently Eyes: No diplopia, no worsening or blurred vision ENT: normal hearing, no trouble swallowing Respiratory: No cough, sputum, dyspnea at rest or on exertion Cardiovascular: As per HPI, currently no chest pain, tightness or palpitations Abdomen: No pain, nausea, vomiting, diarrhea or constipation Musculoskeletal: No joint pain, calf pain, swelling Neurologic: No weakness, numbness/tingling, or balance problems Psychiatric: No anxiety or depression Skin: No rash or itch Physical Exam Physical Exam: General: awake, alert, no apparent distress, + obese Head: Normocephalic, atraumatic ENT: PERRL, EOMI, no pharyngeal exudate, mucous membranes moist Chest: Clear to auscultation, on room air, drops sats to 87% with talking, no adventitious breath sounds Cardiac: Irregularly irregular, tachy with HR in 120s, no murmur, no JVD, normal peripheral pulses, good capillary refill Abdominal: NABS x 4 quadrants, soft, nondistended, nontender to palpation, no rebound, guarding or tenderness Extremities: Normal inspection, no peripheral edema or erythema, calfs nontender to palpation Psych: Normal mood and affect Neuro: AAO x 3, no gross motor deficits, speech is clear, no peripheral sensory deficits Results & Data Vital Signs (Past 12 Hours) Vital Signs Temp Pulse Pulse Resp BP BP Pulse Ox 01/02/20 14:35 120 H 20 100/68 96 01/02/20 14:25 124 H 20 128/65 96 01/02/20 14:12 120 H 22 136/96 96 01/02/20 14:06 116 H 22 146/85 H 95 01/02/20 13:54 123 H 20 130/92 94 01/02/20 12:45 124 H 20 89/44 L 96 01/02/20 11:56 128 H 24 113/83 96 01/02/20 11:48 132 H 16 89/63 L 95 01/02/20 11:44 128 H 14 123/64 94 01/02/20 11:36 128 H 20 76/56 L 96 01/02/20 11:30 124 H 12 136/86 96 01/02/20 11:25 146 H 16 139/83 96 01/02/20 11:19 133 H 16 144/75 H 95 01/02/20 11:14 95 01/02/20 10:52 36.9 C 140 H 20 117/59 L 97 Diagnostic Findings XR chest 1V portable HISTORY: Atypical Chest Pain COMPARISON: Chest 09/27/2019. FINDINGS: The heart remains mildly enlarged. No pneumothorax. No pleural effusions. No new focal lung consolidations to suggest pneumonia. The left shoulder prosthesis. No evidence for pulmonary edema. IMPRESSION: No significant change compared to the prior study. No acute process. ACT 112: Negative or not required by law. Electronically signed by: Que Negro M.D. 01/02/2020 11:57 AM CHEST CTA for PULMONARY ARTERIES CT DOSE: 487.41 mGy.cm HISTORY: Atypical chest pain. TECHNIQUE: Multiaxial CT images of the chest were performed following the intravenous administration of contrast to evaluate the pulmonary arteries. Maximal intensity projection images were also obtained. A dose lowering technique was utilized adhering to the principles of ALARA. COMPARISON STUDY: Chest CTA 08/09/2018. FINDINGS: Normal caliber thoracic aorta. There is no contrast within the aorta to assess for a dissection. The heart is normal in size. No pleural or pericardial effusions. Fat stranding within the left axilla without lymphadenopathy. There is also mild left supraclavicular/neck base fat stranding. Mediastinal lymph nodes measure subcentimeter in short axis diameter. No hilar lymphadenopathy. Normal esophagus. Tiny hiatus hernia. The visualized liver and spleen are unremarkable. There is a left shoulder prosthesis. No pneumothorax. The central airways are patent. Mild interlobular septal thickening, most pronounced at the lung bases. This is similar to the prior study and could be chronic or represent mild congestive change. No filling defects within the pulmonary arteries to suggest pulmonary embolus. There is a bilobed 6 mm nodule within the right lower lobe in image 104. This remains stable compared to a 2012 study and is therefore considered to be benign. IMPRESSION: 1. No evidence for pulmonary embolus. 2. No change in the interstitial thickening which is likely chronic. Mild congestive change could also have a similar appearance but is considered less likely. 3. Stable benign 6 mm nodule within the right lower lobe. 4. Mild subcutaneous fat stranding within the left neck base and left axilla. This is nonspecific but could be due to prior intervention. Clinical correlation recommended. ACT 112: Negative or not required by law. Electronically signed by: Que Negro M.D. 01/02/2020 2:06 PM ECG Additional Comments: 02-JAN-2020 11:01:36 [facility]-EDSTAT ROUTINE RETRIEVAL Atrial fibrillation with rapid ventricular response with premature ventricular or aberrantly conducted complexes Left axis deviation Anterior infarct , age undetermined Abnormal ECG When compared with ECG of 27-SEP-2019 16:50, Atrial fibrillation has replaced Sinus rhythm Vent. rate has increased BY 86 BPM Inverted T waves have replaced nonspecific T wave abnormality in Lateral leads 25mm/s 10mm/mV 150Hz 9.0.9 12SL 241 SHAMEKA: 15 Unconfirmed Vent. rate 154 BPM MT interval * ms QRS duration 86 ms QT/QTc 282/451 ms P-R-T axes * -42 118 Code Status & VTE Plan Code Status DNR -discussed with patient and at bedside Supervising Physician Co-Signing Physician Notes Patient seen and examined, chart reviewed, case discussed with DALE Tim and I agree with her assessment and plan as documented above. Briefly, patient is a pleasant 89yo C female with history of GERD/HLP presenting with weakness/FONSECA and nausea. Found to be in AF with RVR, HR of 150's. She was started on heparin and cardizem gtt and admitted to medical floor with tele On exam she is afebrile, HR of 81 on latest check, BP = 88/56 - Cardizem gtt at 10 Skin - no rash HEENT - NC/AT, MMM, neck supple Heart - +S1/S2, irregularly irregular, no m/r/g Lungs - CTA Abd - +BS, soft, NT/ND Ext - No edema Labs and images reviewed Assessment/Plan- Continue heparin gtt - patient at risk for clot/CVA based on age/gender/history of HTN Continue diltiazem gtt for now. If patient continues to become hypotensive would discontinue drip and consider PO dosing Remainder of plan as above PG Care Time/CCT Total # of Minutes Spent Total Time Spent with Patient: Total time spent is greater than 50% in coordination of care (as documented) at patient's floor/unit and/or counseling patient: Coding Level of Care Code 06755 Initial Inpt Care Lvl 3 Diagnoses Atrial fibrillation with RVR I48.91 HLD (hyperlipidemia) E78.5 Hypothyroidism E03.9 Constipation K59.00 Hypoxia R09.02 Pulmonary nodule R91.1 DVT prophylaxis Z29.9
--- NOTE | 2020-01-02 15:21 | Emergency Department Note ---
Entered by Iliana Su acting as a scribe for History of Present Illness General Chief complaint: Arrhythmia/Palpitations Stated complaint: LIGHTHEADED, WEAK, ERRATIC PULSE Time Seen by Provider: 01/02/20 11:14 Source: patient History of Present Illness Onset (ago): minute(s) (prior to arrival) Location: chest Pain Consistency: + constant Maximum Pain Intensity: 0 Quality: + other (heart palpitations) Associated symptoms: + chest pain and + shortness of breath The patient is a 89 year old female who presents to the Emergency Room with complaints of constant heart palpitations beginning prior to arrival. The eloise ent reports some chest discomfort and difficulty breathing. She denies any recent falls or syncopal episodes. The patient denies a history of a-fib. She denies blood thinners. The patient denies illict drug use. Home Medications Home Medications Medication Instructions Recorded Confirmed Type calcium carbonate-vitamin D3 1 tab PO QAM 08/09/18 01/02/20 History [Calcium 500 With D] levothyroxine 125 mcg PO QAM 08/09/18 01/02/20 History kmigbmlhupcv-wols-zistr acid 1 tab PO QAM 08/09/18 01/02/20 History [Multi-Day with Iron] simvastatin 20 mg PO PM 08/09/18 01/02/20 History docusate sodium 100 mg PO HS 01/02/20 01/02/20 History pantoprazole 40 mg PO QAM 01/02/20 01/02/20 History wheat dextrin [Benefiber Sugar 3 g PO QAM 01/02/20 01/02/20 History Free (dextrin)] Allergies Allergy/AdvReac Type Severity Reaction Status Date / Time Penicillins Allergy Intermediate RASH Verified 01/02/20 12:25 adhesive Allergy Mild ADHESIVE Verified 01/02/20 12:25 TAPE-rash redness nickel Allergy Mild IRRITATION Verified 01/02/20 12:25 oxycodone AdvReac Severe SEVERE Verified 01/02/20 12:25 VOMITING Past Med/Surg History Medical History Chest pain DJD of shoulder GERD (gastroesophageal reflux disease) Hemorrhoid (Acute) Hyperlipidemia Hypothyroidism (Chronic) Hypothyroidism Lower GI bleed (Acute) Palpitations (Acute) Surgical History No pertinent past surgical history Family History Father Myocardial infarction Social History Preferred Language: Jordanian marital status: Current Living Situation: Spouse current occupational status: retired Feels Safe at Home: Yes Smoking Status: Former smoker Review of Systems See HPI for pertinent positives & negatives. and A total of 10 systems reviewed and were otherwise negative Physical Exam Vital Signs Vital Signs - 24 hr 01/02/20 10:52 01/02/20 11:14 01/02/20 11:19 Temperature 36.9 C Temperature Source Oral Pulse Rate 140 H Pulse Rate [Right Finger] 133 H Pulse Rhythm [Right Finger] Respiratory Rate 20 16 Respiratory Effort / Characteristics Non-Labored Non-Labored Non-Labored Respiratory Depth Normal Normal Respiratory Pattern Regular Blood Pressure 117/59 L Blood Pressure [Right Arm] 144/75 H Blood Pressure Mean 78 Blood Pressure Mean [Right Arm] 98 Blood Pressure Position [Right Arm] Pulse Oximetry 97 95 95 Oxygen Delivery Method Room Air Room Air Room Air Sepsis Recent Fever Within 48 Hours No Sepsis Action Taken by Nursing No Action Required 01/02/20 11:25 01/02/20 11:30 01/02/20 11:36 Temperature Temperature Source Pulse Rate Pulse Rate [Right Finger] 146 H 124 H 128 H Pulse Rhythm [Right Finger] Respiratory Rate 16 12 20 Respiratory Effort / Characteristics Non-Labored Non-Labored Non-Labored Respiratory Depth Normal Normal Normal Respiratory Pattern Blood Pressure Blood Pressure [Right Arm] 139/83 136/86 76/56 L Blood Pressure Mean Blood Pressure Mean [Right Arm] 101 102 62 Blood Pressure Position [Right Arm] Pulse Oximetry 96 96 96 Oxygen Delivery Method Room Air Room Air Room Air Sepsis Recent Fever Within 48 Hours Sepsis Action Taken by Nursing 01/02/20 11:44 01/02/20 11:48 01/02/20 11:56 Temperature Temperature Source Pulse Rate Pulse Rate [Right Finger] 128 H 132 H 128 H Pulse Rhythm [Right Finger] Respiratory Rate 14 16 24 Respiratory Effort / Characteristics Non-Labored Respiratory Depth Normal Normal Respiratory Pattern Blood Pressure Blood Pressure [Right Arm] 123/64 89/63 L 113/83 Blood Pressure Mean Blood Pressure Mean [Right Arm] 83 71 93 Blood Pressure Position [Right Arm] Pulse Oximetry 94 95 96 Oxygen Delivery Method Room Air Room Air Sepsis Recent Fever Within 48 Hours Sepsis Action Taken by Nursing 01/02/20 12:45 01/02/20 13:54 01/02/20 14:06 Temperature Temperature Source Pulse Rate Pulse Rate [Right Finger] 124 H 123 H 116 H Pulse Rhythm [Right Finger] Irregular Respiratory Rate 20 20 22 Respiratory Effort / Characteristics Non-Labored Non-Labored Non-Labored Respiratory Depth Normal Normal Normal Respiratory Pattern Blood Pressure Blood Pressure [Right Arm] 89/44 L 130/92 146/85 H Blood Pressure Mean Blood Pressure Mean [Right Arm] 59 104 105 Blood Pressure Position [Right Arm] Sitting Pulse Oximetry 96 94 95 Oxygen Delivery Method Room Air Room Air Sepsis Recent Fever Within 48 Hours Sepsis Action Taken by Nursing 01/02/20 14:12 01/02/20 14:25 01/02/20 14:35 Temperature Temperature Source Pulse Rate Pulse Rate [Right Finger] 120 H 124 H 120 H Pulse Rhythm [Right Finger] Respiratory Rate 22 20 20 Respiratory Effort / Characteristics Non-Labored Respiratory Depth Normal Respiratory Pattern Blood Pressure Blood Pressure [Right Arm] 136/96 128/65 100/68 Blood Pressure Mean Blood Pressure Mean [Right Arm] 109 86 78 Blood Pressure Position [Right Arm] Pulse Oximetry 96 96 96 Oxygen Delivery Method Room Air Room Air Room Air Sepsis Recent Fever Within 48 Hours Sepsis Action Taken by Nursing 01/02/20 14:45 Temperature Temperature Source Pulse Rate Pulse Rate [Right Finger] 124 H Pulse Rhythm [Right Finger] Respiratory Rate 21 Respiratory Effort / Characteristics Non-Labored Respiratory Depth Normal Respiratory Pattern Blood Pressure Blood Pressure [Right Arm] 123/72 Blood Pressure Mean Blood Pressure Mean [Right Arm] 89 Blood Pressure Position [Right Arm] Pulse Oximetry 96 Oxygen Delivery Method Room Air Sepsis Recent Fever Within 48 Hours Sepsis Action Taken by Nursing GENERAL: She is oriented to person, place, and time. She appears well-developed and well-nourished. She does not appear distressed. HENT: Exam performed. Head: Normocephalic and atraumatic. Right Ear: External ear normal. No mastoid tenderness. Left Ear: External ear normal. No mastoid tenderness. Mouth/Throat: The oropharynx is clear and moist. No trismus in the jaw. No dental abscesses or uvula swelling. No oropharyngeal exudate or tonsillar abscesses. EYES: Conjunctivae and EOM are normal. Pupils are equal, round, and reactive to light. Right eye exhibits no discharge. Left eye exhibits no discharge. No scleral icterus. NECK: Normal range of motion. Neck supple. No JVD present. No spinous process tenderness present. No carotid bruit present. No rigidity. No tracheal deviation and normal range of motion present. No Brudzinski's sign and no Kernig's sign noted. CV: Tachycardic rate, irregular rhythm, normal heart sounds and intact distal pulses. There is no peripheral edema. Palpable radial pulses bue. PULM/CHEST: Effort normal and breath sounds normal. No respiratory distress. No stridor. She has no wheezes. She has no rales. Chest Wall: She exhibits no tenderness. ABD: The abdomen is soft. Bowel sounds are normal. She has no distension. No mass is present. There is no tenderness. There is no rebound, no guarding, no Mann's sign and no tenderness at McBurney's point. Rovsig negative MUSC/SKEL: Normal range of motion. There is no peripheral edema, tenderness or deformity. LYMPH: No cervical adenopathy. NEURO: She is alert and oriented to person, place, and time. She has normal strength. No cranial nerve deficit or sensory deficit. Coordination and gait normal. GCS eye subscore is 4. GCS verbal subscore is 5. GCS motor subscore is 6. cerbellar tests wnl. SKIN: Skin is warm and dry. She is not diaphoretic. PSYCH: She has a normal mood and affect. Her behavior is normal. Judgment and thought content normal. Course Course 1115: Past medical records reviewed. The patient was evaluated in room C10. A complete history and physical exam was performed. The patient is in a-fib RVR on the monitor. The patient's EKG shows a-fib, rate of 154. QRS and QTC are within normal limits. No ST elevation or ST depression noted. There is T wave inversion in the AVL lead. There are no Cardizem boluses available in the ER., therefore the patient was given Metoprolol. The patient denies cocaine use. 1140: Upon reevaluation, the patient is hypotensive 76/56. The patient's Cardizem drip was stopped. IV fluids were initiated. 1350: Vital signs stable. Blood pressure is stable. The patient was placed back on the drip. The CT is negative for PE. Labs within normal limits. Patient has a elevated chads 2 score due to her age and hyperlipidemia, patient will be started on heparin. I spoke with Dr. Julian who agrees to accept the patient for further evaluation and treatment. Administered Medications Diltiazem HCl 125 mg/ Dextrose 125 mls @ 5 mls/hr IV .Q24H LACIE; Protocol Stop: 02/01/20 11:29 Last Admin: 01/02/20 11:28 Dose: 5 mg/hr, 5 mls/hr Documented by: [id number] Cosigned by: [id number] Sodium Chloride (Nss 1000ml) 1,000 mls @ 125 mls/hr IV .Q8H LACIE Stop: 02/01/20 12:59 Last Admin: 01/02/20 12:53 Dose: 125 mls/hr Documented by: [id number] Ioversol (Optiray 320 125ml) 116 ml IV ONCE PRN PRN Reason: Interaction Checking Stop: 01/06/20 13:42 Last Admin: 01/02/20 13:43 Dose: 116 ml Documented by: [id number] Discontinued Medications Lorazepam (Ativan) 0.5 mg in 1 mls @ 1 mls/min IV NOW STA Stop: 01/02/20 11:21 Last Admin: 01/02/20 12:06 Dose: 1 mls/min Documented by: [id number] Metoprolol Tartrate (Lopressor) 5 mg IV NOW STA Stop: 01/02/20 11:17 Last Admin: 01/02/20 11:19 Dose: 5 mg Documented by: [id number] Metoprolol Tartrate (Lopressor) Confirm Administered Dose 5 mg IV .STK-MED ONE Stop: 01/02/20 11:17 Last Admin: 01/02/20 11:29 Dose: Not Given Documented by: [id number] Critical Care Time Critical Care Time: Yes Total Critical Care Time: 87 I have personally spent 87 minutes of critical care time in the direct management of this patient. This includes bedside care, interpretation of diagnostic studies, and testing, discussion with consultants, patient, and family members, and other required patient management activities. This 87 minutes is in excess of all separately billable procedures. Medical Decision Making Medical Records Attestation: I reviewed the patient's medical records. Home Medications Current Medication List: was personally reviewed by me Laboratory Data Attestation: I reviewed the patient's lab results. Result diagrams: 01/02/20 11:10 01/02/20 11:10 Lab Results 01/02/20 01/02/20 01/02/20 Range/Units 11:10 11:10 11:10 WBC 9.50 (4.8-10.8) K/uL RBC 4.28 (4.2-5.4) M/uL Hgb 13.6 (12.0-16.0) g/dL Hct 40.9 (37-47) % MCV 95.6 (80-100) fL MCH 31.8 (25-34) pg MCHC 33.3 (32-36) g/dL RDW Std Deviation 47.8 H (36.4-46.3) fL RDW Coeff of Power 13.9 (11.5-14.5) % Plt Count 321 (130-400) K/uL MPV 10.4 (7.4-10.4) fL Immature Gran % (Auto) 0.1 % Neut % (Auto) 64.4 % Lymph % (Auto) 18.4 % [place] % (Auto) 15.3 % Eos % (Auto) 1.4 % Baso % (Auto) 0.4 % Immature Gran # (Auto) 0.01 (0.00-0.02) K/uL Neut # (Auto) 6.12 (1.4-6.5) K/uL Lymph # (Auto) 1.75 (1.2-3.4) K/uL [place] # (Auto) 1.45 H (0.11-0.59) K/uL Eos # (Auto) 0.13 (0-0.5) K/uL Baso # (Auto) 0.04 (0-0.2) K/uL PT 9.9 (9.0-12.0) Seconds INR 1.0 (0.9-1.1) APTT 26.2 (21.0-31.0) Seconds PTT Ratio 1.0 Sodium 136 (136-145) mmol/L Potassium 4.0 (3.5-5.1) mmol/L Chloride 104 (98-107) mmol/L Carbon Dioxide 28 (21-32) mmol/L Anion Gap 4.0 (3-11) BUN 19 H (7-18) mg/dl Creatinine 1.04 (0.6-1.2) mg/dl Est Cr Clr Drug Dosing 45.3 ml/min Est GFR ( Amer) 55.9 Est GFR (Non-Af Amer) 48.3 BUN/Creatinine Ratio 18.7 (10-20) Glucose 117 H (70-99) mg/dl Calcium 9.0 (8.5-10.1) mg/dl Magnesium 1.9 (1.8-2.4) mg/dl Total Bilirubin 0.5 (0.2-1) mg/dl AST 17 (15-37) U/L ALT 18 (12-78) U/L Alkaline Phosphatase 78 (45-117) U/L Troponin I 0.015 (0-0.045) ng/ml Total Protein 7.6 (6.4-8.2) gm/dl Albumin 3.4 (3.4-5.0) gm/dl Globulin 4.2 H (2.5-4.0) gm/dl Albumin/Globulin Ratio 0.8 L (0.9-2) 01/02/20 Range/Units 11:10 WBC (4.8-10.8) K/uL RBC (4.2-5.4) M/uL Hgb (12.0-16.0) g/dL Hct (37-47) % MCV (80-100) fL MCH (25-34) pg MCHC (32-36) g/dL RDW Std Deviation (36.4-46.3) fL RDW Coeff of Power (11.5-14.5) % Plt Count (130-400) K/uL MPV (7.4-10.4) fL Immature Gran % (Auto) % Neut % (Auto) % Lymph % (Auto) % [place] % (Auto) % Eos % (Auto) % Baso % (Auto) % Immature Gran # (Auto) (0.00-0.02) K/uL Neut # (Auto) (1.4-6.5) K/uL Lymph # (Auto) (1.2-3.4) K/uL [place] # (Auto) (0.11-0.59) K/uL Eos # (Auto) (0-0.5) K/uL Baso # (Auto) (0-0.2) K/uL PT (9.0-12.0) Seconds INR (0.9-1.1) APTT (21.0-31.0) Seconds PTT Ratio Sodium (136-145) mmol/L Potassium (3.5-5.1) mmol/L Chloride (98-107) mmol/L Carbon Dioxide (21-32) mmol/L Anion Gap (3-11) BUN (7-18) mg/dl Creatinine (0.6-1.2) mg/dl Est Cr Clr Drug Dosing ml/min Est GFR ( Amer) Est GFR (Non-Af Amer) BUN/Creatinine Ratio (10-20) Glucose (70-99) mg/dl Calcium (8.5-10.1) mg/dl Magnesium Cancelled (1.8-2.4) mg/dl Total Bilirubin (0.2-1) mg/dl AST (15-37) U/L ALT (12-78) U/L Alkaline Phosphatase (45-117) U/L Troponin I (0-0.045) ng/ml Total Protein (6.4-8.2) gm/dl Albumin (3.4-5.0) gm/dl Globulin (2.5-4.0) gm/dl Albumin/Globulin Ratio (0.9-2) Imaging Data Radiologist's Impression: Radiology results as stated below per my review and the radiologist's interpretation: XR chest 1V portable HISTORY: Atypical Chest Pain COMPARISON: Chest 09/27/2019. FINDINGS: The heart remains mildly enlarged. No pneumothorax. No pleural effusions. No new focal lung consolidations to suggest pneumonia. The left shoulder prosthesis. No evidence for pulmonary edema. IMPRESSION: No significant change compared to the prior study. No acute process. ACT 112: Negative or not required by law. Electronically signed by: Que Negro M.D. 01/02/2020 11:57 AM CHEST CTA for PULMONARY ARTERIES CT DOSE: 487.41 mGy.cm HISTORY: Atypical chest pain. TECHNIQUE: Multiaxial CT images of the chest were performed following the in travenous administration of contrast to evaluate the pulmonary arteries. Maximal intensity projection images were also obtained. A dose lowering technique was utilized adhering to the principles of ALARA. COMPARISON STUDY: Chest CTA 08/09/2018. FINDINGS: Normal caliber thoracic aorta. There is no contrast within the aorta to assess for a dissection. The heart is normal in size. No pleural or alber cardial effusions. Fat stranding within the left axilla without lymphadenopathy. There is also mild left supraclavicular/neck base fat stranding. Mediastinal lymph nodes measure subcentimeter in short axis diameter. No hilar lymphadenopathy. Normal esophagus. Tiny hiatus hernia. The visualized liver and spleen are unremarkable. There is a left shoulder prosthesis. No pneumothorax. The central airways are patent. Mild interlobular septal thickening, most pronounced at the lung bases. This is similar to the prior study and could be chronic or represent mild congestive change. No filling defects within the pulmonary arteries to suggest pulmonary embolus. There is a bilobed 6 mm nodule within the right lower lobe in image 104. This remains stable compared to a 2012 study and is therefore considered to be benign. IMPRESSION: 1. No evidence for pulmonary embolus. 2. No change in the interstitial thickening which is likely chronic. Mild congestive change could also have a similar appearance but is considered less likely. 3. Stable benign 6 mm nodule within the right lower lobe. 4. Mild subcutaneous fat stranding within the left neck base and left axilla. This is nonspecific but could be due to prior intervention. Clinical correlation recommended. ACT 112: Negative or not required by law. Electronically signed by: Que Negro M.D. 01/02/2020 2:06 PM ECG Data Attestation: I personally reviewed and interpreted this ECG as follows: Indication: + palpitations Rate (beats per minute): 154 Rhythm: + atrial fibrillation ECG Intervals/blocks: + Normal QRS and + Normal QT-c ECG ST segments: + T-wave inversions (Lead AVL); no ST depression and no ST elevation Blood Pressure Blood Pressure Findings: Elevated blood pressure Blood Pressure Disposition: further management by hospitalist RENNY Narrative 1115: Past medical records reviewed. The patient was evaluated in room C10. A complete history and physical exam was performed. The patient is in a-fib RVR on the monitor. The patient's EKG shows a-fib, rate of 154. QRS and QTC are within normal limits. No ST elevation or ST depression noted. There is T wave inversion in the AVL lead. There are no Cardizem boluses available in the ER., therefore the patient was given Metoprolol. The patient denies cocaine use. 1140: Upon reevaluation, the patient is hypotensive 76/56. The patient's Cardizem drip was stopped. IV fluids were initiated. 1350: Vital signs stable. Blood pressure is stable. The patient was placed back on the drip. The CT is negative for PE. Labs within normal limits. Patient has a elevated chads 2 score due to her age and hyperlipidemia, patient will be started on heparin. I spoke with Dr. Julian who agrees to accept the patient for further evaluation and treatment. Impression & Plan Atrial fibrillation with RVR Discharge Plan Visit Data Chief Complaint: Arrhythmia/Palpitations Stated Complaint: LIGHTHEADED, WEAK, ERRATIC PULSE ED Provider: Mychal Ness ED Midlevel Provider: Brittany Becker Discharge Problem: Atrial fibrillation with RVR Patient Disposition: Being Evaluated by Hospitalist Forms Stand Alone Forms: My [facility] Prescriptions Prescriptions: No Action levothyroxine 125 mcg Tablet 125 mcg PO QAM RF: 0 Multi-Day with Iron 18-400 mg-mcg Tablet 1 tab PO QAM RF: 0 simvastatin 20 mg Tablet 20 mg PO PM RF: 0 calcium carbonate-vitamin D3 [Calcium 500 With D] 500 mg(1,250mg) -400 unit Tablet 1 tab PO QAM RF: 0 docusate sodium 100 mg Tablet 100 mg PO HS RF: 0 Benefiber Sugar Free (dextrin) 3 gram/4 gram Powder 3 g PO QAM RF: 0 pantoprazole 40 mg tablet,delayed release (DR/EC) 40 mg PO QAM RF: 0 Referrals Referrals: Brandon Coughlin MD [Primary Care Provider] - The scribe's documentation has been prepared under my direction and personally reviewed by me in its entirety. I confirm that the note above accurately reflects all work, treatment, procedures, and medical decision making performed by me.
[2020-01-02] MEDS ORDERED: ACETAMINOPHEN 325 MG TAB PO PRN (15:39)
[2020-01-02] MEDS ORDERED: ONDANSETRON INJ 2 MG/ML 2 ML VIAL IV PRN (15:39)
[2020-01-02] MEDS ORDERED: HEPARIN IV BOLUS 6,000 UNITS in SYRINGE 0 ML IV ONE (16:15)
[2020-01-02] MEDS ORDERED: Heparin Adult STANDARD Wt-Based Dextrose 5% 25,000 units/500 mL IV SCH (16:15)
[2020-01-02] MEDS: HEPARIN SODIUM/DEXTROSE 25,000 UNITS/500 ML BAG IV SCH (16:29)
[2020-01-02] MEDS: SIMVASTATIN 20 MG TAB PO SCH (20:41)
[2020-01-02] MEDS: DOCUSATE SODIUM 100 MG CAP PO SCH (20:41)
--- NOTE | 2020-01-02 22:00 | Electrocardiogram Report ---
Test Reason : Blood Pressure : / mmHG Vent. Rate : 154 BPM Atrial Rate : 138 BPM P-R Int : 000 ms QRS Dur : 086 ms QT Int : 282 ms P-R-T Axes : 000 -42 118 degrees QTc Int : 451 ms Atrial fibrillation with rapid ventricular response with premature ventricular or aberrantly conducte d complexes Left axis deviation Anterior infarct , age undetermined T wave abnormality, consider lateral ischemia Abnormal ECG When compared with ECG of 27-SEP-2019 16:50, Atrial fibrillation has replaced Sinus rhythm Vent. rate has increased BY 86 BPM Inverted T waves have replaced nonspecific T wave abnormality in Lateral leads Confirmed by Flako Moon ([id number]) on 01/02/2020 9:59:32 PM Referred By: REFERRED SELF Confirmed By:Flako Moon
[2020-01-02 23:20] LABS: Partial Thromboplastin Ratio 2.2
[2020-01-02 23:22] LABS: Partial Thromboplastin Time 59.3 Seconds (21.0-31.0)
[2020-01-03] MEDS: LEVOTHYROXINE SODIUM 125 MCG TABLET PO SCH (05:45)
[2020-01-03 06:19] LABS: Hematocrit (blood only) 36.8 % (37-47); Hemoglobin 12.2 g/dL (12.0-16.0); Mean Corpuscular Hemoglobin 31.5 pg (25-34); Mean Corpuscular Hgb Conc 33.2 g/dL (32-36); Mean Corpuscular Volume 95.1 fL (80-100); Mean Platelet Volume 11.3 fL (7.4-10.4); Platelet Count 271 K/uL (130-400); RDW Coefficient of Variation 14.2 % (11.5-14.5); RDW Standard Deviation 49.2 fL (36.4-46.3); Red Blood Count 3.87 M/uL (4.2-5.4); White Blood Count 9.93 K/uL (4.8-10.8)
[2020-01-03 06:47] LABS: BUN Creatinine Ratio 18.9 (10-20); Calcium 8.6 mg/dl (8.5-10.1); Creatinine Clr Calc Pharmacy 50.1 ml/min; Est GFR (African American) 63.2; Est GFR (Non-African American) 54.5; Potassium 3.8 mmol/L (3.5-5.1)
[2020-01-03 06:51] LABS: Partial Thromboplastin Ratio 2.1
[2020-01-03 06:52] LABS: Partial Thromboplastin Time 57.2 Seconds (21.0-31.0)
[2020-01-03 06:57] LABS: Albumin Globulin Ratio 0.8 (0.9-2); Bilirubin,Total 0.4 mg/dl (0.2-1); Globulin 3.6 gm/dl (2.5-4.0); Thyroid Stimulating Hormone 1.08 uIu/ml (0.300-4.500); Total Protein 6.6 gm/dl (6.4-8.2)
[2020-01-03] MEDS: CEROVITE ADV FORMULA TAB PO SCH (07:53)
[2020-01-03] MEDS: PSYLLIUM 58.6% POWDER PACKET PO SCH (07:54)
[2020-01-03] MEDS: PANTOprazole 40 MG TAB PO SCH (07:54)
[2020-01-03] MEDS: CALCIUM 600MG + VIT D 400 IU TAB PO SCH (07:54)
--- NOTE | 2020-01-03 09:30 | Cardiology Consultation ---
Date of Consultation January 03, 2020 Assessment & Plan (1) Atrial fibrillation with RVR: (2) SOB (shortness of breath): ASSESSMENT/PLAN: 1. Atrial fibrillation with RVR: We discussed the diagnosis in detail. Her heart rate is still not adequately controlled. She has had intermittent mild hypotension while on diltiazem drip, which may limit further titration. Recommend metoprolol tartrate 25 mg p.o. q.6 hours if blood pressure tolerates. Try to wean off of the diltiazem drip if possible. If hypotension becomes an issue, could also consider digoxin. We did discuss rhythm control and cardioversion as well but she is agreeable to attempt rate control. If rate control strategy is unsuccessful, SATYA cardioversion was discussed. We also discussed stroke risk. She has elevated chads Vasc score of 3. She was agreeable for anticoagulation to reduced risk of stroke. Would consider NOAC agent on discharge. Echo has been ordered and is pending. TSH and electrolytes normal. 2. Shortness of breath: She does not appear to be significantly hypervolemic. Symptom likely related to her atrial arrhythmia. CTA of the chest was unremarkable for acute process to explain her shortness of breath yesterday. Hopefully symptoms improved with improvement of her heart rate. 3. Disposition: Cardiology will continue to follow. Plan of care discussed with primary hospitalist service, Heather Sierra. Thank you for allowing me to participate in the care of your patient. Please c all for any other questions or concerns. Sincerely, González Moon M.D. History of Present Illness Reason for Consultation: Atrial fibrillation with RVR Requesting Physician: Dr. Julian Attending Physician: Herbert Sam History of Present Illness Mrs. Pryor is a very pleasant 89-year-old female with a history significant for sleep apnea on CPAP, hypothyroidism, and dyslipidemia. She was admitted to [facility] on 01/02/2020 for atrial fibrillation with rapid ventricular response time. She states that yesterday she noted a feeling of lightheadedness, shortness of breath, and overall feeling funny. Her checked her pulse and noted it to be abnormal. They called the nurse at the [facility], where they reside, and the nurse also noted and erratically pulse and recommended further evaluation. According to the admitting record, she had been feeling symptoms such as nausea, clamminess, exertional fatigue over the past 3 days however currently during our meeting, she stated that she felt well other than yesterday. While here, she was noted to be in atrial fibrillation with rapid ventricular response and a diltiazem drip was started. With diltiazem at 5 milligrams/hour, her heart rate has been better controlled but still tachycardic. She did feel better overnight but after just recently exerting herself going to the restroom, she noted that she is a bit more fatigued than usual. She denies chest pain, syncope, near-syncope, or bleeding such as melena, hematochezia, or hematuria. She has chronic but stable lower extremity edema. She denies orthopnea. She denies any recent fevers, chills, abdominal pain, or vomiting. She denies diarrhea. She has been eating her usual diet. Review of systems: As above. Review of systems otherwise negative/unremarkable. Family history: Her father at the age of 87 with NC. Son has atrial fibrillation and has undergone ablation x2. She had a brother who at the age of 81 with myocardial infarction. He also had COPD. Social history: She quit smoking at the age of 30. No alcohol or drugs. [facility] . They have 4 sons. She has lived her life in the [place] area. She is unaccompanied. Her was part of a [employer] soccer team. Allergies Allergy/AdvReac Type Severity Reaction Status Date / Time Penicillins Allergy Intermediate RASH Verified 01/02/20 12:25 adhesive Allergy Mild ADHESIVE Verified 01/02/20 12:25 TAPE-rash redness nickel Allergy Mild IRRITATION Verified 01/02/20 12:25 oxycodone AdvReac Severe SEVERE Verified 01/02/20 12:25 VOMITING Home Medications Home Medications Medication Instructions Recorded Confirmed Type calcium carbonate-vitamin D3 1 tab PO QAM 08/09/18 01/02/20 History [Calcium 500 With D] levothyroxine 125 mcg PO QAM 08/09/18 01/02/20 History radgcyujodsf-vpmt-bqhjt acid 1 tab PO QAM 08/09/18 01/02/20 History [Multi-Day with Iron] simvastatin 20 mg PO PM 08/09/18 01/02/20 History docusate sodium 100 mg PO HS 01/02/20 01/02/20 History pantoprazole 40 mg PO QAM 01/02/20 01/02/20 History wheat dextrin [Benefiber Sugar 3 g PO QAM 01/02/20 01/02/20 History Free (dextrin)] Patient History Medical History Chest pain DJD of shoulder GERD (gastroesophageal reflux disease) Hemorrhoid (Acute) Hyperlipidemia Hypothyroidism (Chronic) Hypothyroidism Lower GI bleed (Acute) Palpitations (Acute) Surgical History No pertinent past surgical history Family History Father Myocardial infarction Social History Preferred Language: Citizen Of [place] Communication Ability: Effective Dialysis Tech Required: No Beliefs That Will Affect Care: None marital status: Current Living Situation: Spouse current occupational status: retired Other Information That Helps Us Care for You: No Feels Safe at Home: Yes Safety Concerns: Feels Safe At This Time Smoking Status: Former smoker Do You Dip or Chew Tobacco: No ; Second Hand Exposure: No ; Tobacco Cessation Education Requested by Patient: No Hx Alcohol Use: No Hx Substance Use: No Physical Exam Physical Exam: Gen.: No acute distress. Alert and oriented. HEENT: Anicteric sclera. Neck: No JVD. No bruits. Normal carotid upstrokes bilaterally. Cardiac: PMI was nondisplaced. No ventricular heave. Irregularly irregular and tachycardic. Normal S1-S2. No murmurs, rubs, or gallops. Pulmonary: Clear to auscultation bilaterally without wheezes, rales, or rhonchi. Abdomen: Soft, nontender, nondistended, with normoactive bowel sounds. No bruits noted. Extremities: 2+ radial pulses bilaterally. 2+ posterior tibialis pulses bilaterally. Bilateral lower extremities are large in diameter with mostly nonpitting edema. Bilateral lower extremity varicosities noted. No cyanosis. Psychiatric: Affect appears appropriate. Results & Data Vital Signs (Past 12 Hours) Vital Signs Temp Pulse Resp BP BP Pulse Ox 01/03/20 07:07 36.8 C 105 H 18 97/58 L 96 01/03/20 04:30 108/56 L 01/03/20 02:33 36.7 C 130 H 18 118/77 95 01/02/20 23:51 36.9 C 82 18 91/61 L 94 Laboratory Results Laboratory Results - last 24 hr 01/02/20 01/02/20 01/02/20 11:10 11:10 11:10 WBC 9.50 RBC 4.28 Hgb 13.6 Hct 40.9 MCV 95.6 MCH 31.8 MCHC 33.3 RDW Std Deviation 47.8 H RDW Coeff of Power 13.9 Plt Count 321 MPV 10.4 Immature Gran % (Auto) 0.1 Neut % (Auto) 64.4 Lymph % (Auto) 18.4 [place] % (Auto) 15.3 Eos % (Auto) 1.4 Baso % (Auto) 0.4 Immature Gran # (Auto) 0.01 Neut # (Auto) 6.12 Lymph # (Auto) 1.75 [place] # (Auto) 1.45 H Eos # (Auto) 0.13 Baso # (Auto) 0.04 PT 9.9 INR 1.0 APTT 26.2 PTT Ratio 1.0 Sodium 136 Potassium 4.0 Chloride 104 Carbon Dioxide 28 Anion Gap 4.0 BUN 19 H Creatinine 1.04 Est Cr Clr Drug Dosing 45.3 Est GFR ( Amer) 55.9 Est GFR (Non-Af Amer) 48.3 BUN/Creatinine Ratio 18.7 Glucose 117 H Estimat Average Glucose Hemoglobin A1c Calcium 9.0 Magnesium 1.9 Total Bilirubin 0.5 AST 17 ALT 18 Alkaline Phosphatase 78 Troponin I 0.015 Total Protein 7.6 Albumin 3.4 Globulin 4.2 H Albumin/Globulin Ratio 0.8 L Triglycerides Cholesterol LDL Cholesterol, Calc VLDL Cholesterol, Calc HDL Cholesterol Cholesterol/HDL Ratio TSH 01/02/20 01/02/20 01/02/20 11:10 16:55 22:15 WBC RBC Hgb Hct MCV MCH MCHC RDW Std Deviation RDW Coeff of Power Plt Count MPV Immature Gran % (Auto) Neut % (Auto) Lymph % (Auto) [place] % (Auto) Eos % (Auto) Baso % (Auto) Immature Gran # (Auto) Neut # (Auto) Lymph # (Auto) [place] # (Auto) Eos # (Auto) Baso # (Auto) PT INR APTT 59.3 H* PTT Ratio 2.2 Sodium Potassium Chloride Carbon Dioxide Anion Gap BUN Creatinine Est Cr Clr Drug Dosing Est GFR ( Amer) Est GFR (Non-Af Amer) BUN/Creatinine Ratio Glucose Estimat Average Glucose Hemoglobin A1c Calcium Magnesium Cancelled Total Bilirubin AST ALT Alkaline Phosphatase Troponin I < 0.015 Total Protein Albumin Globulin Albumin/Globulin Ratio Triglycerides Cholesterol LDL Cholesterol, Calc VLDL Cholesterol, Calc HDL Cholesterol Cholesterol/HDL Ratio TSH 01/03/20 01/03/20 01/03/20 00:58 05:26 05:26 WBC RBC Hgb Hct MCV MCH MCHC RDW Std Deviation RDW Coeff of Power Plt Count MPV Immature Gran % (Auto) Neut % (Auto) Lymph % (Auto) [place] % (Auto) Eos % (Auto) Baso % (Auto) Immature Gran # (Auto) Neut # (Auto) Lymph # (Auto) [place] # (Auto) Eos # (Auto) Baso # (Auto) PT INR APTT 57.2 H* PTT Ratio 2.1 Sodium 139 Potassium 3.8 Chloride 106 Carbon Dioxide 26 Anion Gap 7.0 BUN 18 Creatinine 0.94 Est Cr Clr Drug Dosing 50.1 Est GFR ( Amer) 63.2 Est GFR (Non-Af Amer) 54.5 BUN/Creatinine Ratio 18.9 Glucose 105 H Estimat Average Glucose Hemoglobin A1c Calcium 8.6 Magnesium Total Bilirubin 0.4 AST 14 L ALT 15 Alkaline Phosphatase 68 Troponin I 0.021 Total Protein 6.6 Albumin 3.0 L Globulin 3.6 Albumin/Globulin Ratio 0.8 L Triglycerides 99 Cholesterol 159 LDL Cholesterol, Calc 94 VLDL Cholesterol, Calc 20 HDL Cholesterol 45 Cholesterol/HDL Ratio 4 TSH 1.080 01/03/20 01/03/20 05:26 05:26 WBC 9.93 RBC 3.87 L Hgb 12.2 Hct 36.8 L MCV 95.1 MCH 31.5 MCHC 33.2 RDW Std Deviation 49.2 H RDW Coeff of Power 14.2 Plt Count 271 MPV 11.3 H Immature Gran % (Auto) Neut % (Auto) Lymph % (Auto) [place] % (Auto) Eos % (Auto) Baso % (Auto) Immature Gran # (Auto) Neut # (Auto) Lymph # (Auto) [place] # (Auto) Eos # (Auto) Baso # (Auto) PT INR APTT PTT Ratio Sodium Potassium Chloride Carbon Dioxide Anion Gap BUN Creatinine Est Cr Clr Drug Dosing Est GFR ( Amer) Est GFR (Non-Af Amer) BUN/Creatinine Ratio Glucose Estimat Average Glucose Pending Hemoglobin A1c Pending Calcium Magnesium Total Bilirubin AST ALT Alkaline Phosphatase Troponin I Total Protein Albumin Globulin Albumin/Globulin Ratio Triglycerides Cholesterol LDL Cholesterol, Calc VLDL Cholesterol, Calc HDL Cholesterol Cholesterol/HDL Ratio TSH Diagnostic Findings Telemetry personally reviewed: Atrial fibrillation with rapid ventricular response. ECG personally reviewed: ECG 01/02/2020: AFib with RVR at 154 bpm. Aberrantly conducted complexes versus PVCs. Lateral T-wave inversion. CTA chest 01/02/2020: No PE. Interstitial thickening, likely chronic per Radiology. 6 mm nodule right lower lobe (Described as stable). Medications Administered Current Inpatient Medications Acetaminophen (Tylenol) 650 mg PO Q4H PRN PRN Reason: Moderate Pain Stop: 02/01/20 15:38 Docusate Sodium (Colace) 100 mg PO [facility] Stop: 02/01/20 20:59 Last Admin: 01/02/20 20:41 Dose: 100 mg Documented by: Diltiazem HCl 125 mg/ Dextrose 125 mls @ 5 mls/hr IV .Q24H COUNT INCLUDES THE [facility]; Protocol Stop: 02/01/20 11:29 Last Titration: 01/03/20 07:12 Dose: 5 mg/hr, 5 mls/hr Documented by: Heparin Sodium/Dextrose (Heparin Sodium/Dextrose) 25,000 units in 500 mls @ 27 mls/hr IV .[id number] COUNT INCLUDES THE [facility]; Protocol Stop: 02/01/20 16:14 Last Titration: 01/03/20 07:12 Dose: 1,350 units/hr, 27 mls/hr Documented by: Levothyroxine Sodium (Synthroid) 125 mcg PO DAILYBB COUNT INCLUDES THE [facility] Stop: 02/02/20 06:29 Last Admin: 01/03/20 05:45 Dose: 125 mcg Documented by: Metoprolol Tartrate (Lopressor) 25 mg PO Q6H COUNT INCLUDES THE [facility] Stop: 02/02/20 08:59 Multivitamins/Minerals ([facility]ate Plus) [facility] Stop: 02/02/20 08:59 Last Admin: 01/03/20 07:54 Dose: 1 tab Documented by: Multivitamins/Minerals (Multivitamin W/ Minerals Tab) [facility] Stop: 02/02/20 08:59 Last Admin: 01/03/20 07:53 Dose: 1 tab Documented by: Ondansetron HCl (Zofran) 4 mg IV Q4H PRN PRN Reason: Nausea And Vomiting Stop: 02/01/20 15:38 Pantoprazole Sodium (Protonix) 40 mg PO QAM COUNT INCLUDES THE [facility] Stop: 02/02/20 08:59 Last Admin: 01/03/20 07:54 Dose: 40 mg Documented by: Psyllium Hydrophilic Mucilloid (Metamucil) 1 pkt PO [facility] Stop: 02/02/20 08:59 Last Admin: 01/03/20 07:54 Dose: Not Given Documented by: Simvastatin (Zocor) 20 mg PO PM COUNT INCLUDES THE [facility] Stop: 02/01/20 20:59 Last Admin: 01/02/20 20:41 Dose: 20 mg Documented by: PG Care Time/CCT Total # of Minutes Spent Total Time Spent with Patient: Total time spent is greater than 50% in coordination of care (as documented) at patient's floor/unit and/or counseling patient: Coding Level of Care Code 67203 Initial Inpt Care Lvl 3 Diagnoses Atrial fibrillation with RVR I48.91 SOB (shortness of breath) R06.02
[2020-01-03] MEDS: METOPROLOL TARTRATE 25 MG TAB PO SCH ×3 (10:13→20:19)
[2020-01-03] MEDS: dilTIAZem HCL 125 MG in DEXTROSE 5% 100 ML IV SCH ×2 (10:20→11:52)
[2020-01-03] MEDS ORDERED: PERFLUTREN LIPID MICROSPHERE (DEFINITY) IV ONE (11:50)
[2020-01-03] MEDS: HEPARIN SODIUM/DEXTROSE 25,000 UNITS/500 ML BAG IV SCH (14:59)
--- NOTE | 2020-01-03 15:16 | XCELERA ---
[id number] [email or web address]\[id number]
--- NOTE | 2020-01-03 15:28 | Hospitalist Progress Note ---
Date of Service January 03, 2020 Assessment & Plan (1) Atrial fibrillation with RVR: - New onset - however when rates are controlled she states she does not feel palpitations or fluttering so it could have been present previously - however never diagnosed until now - Echo - pending - Continue heparin gtt - planning on NOAC on D/C -- CHADSVASC 3 - Soft BPs on Diltiazem gtt but better control from admission - will continue Diltiazem gtt for now and start Lopressor 25 mg Q6H with goal to stop Dilt gtt - if BP limits titration may need to consider Digoxin -Had some desaturations on admission which responded to supplemental O2 -has been on room air this morning with appropriate oxygenation and will monitor -CTA negative for pulmonary emboli, stable 6 mm nodule in right lower lobe, chronic stable interstitial thickening (2) HLD (hyperlipidemia): -Continue simvastatin 20 mg HS (3) Hypothyroidism: -TSH WNL -Continue levothyroxine 125 mcg daily (4) Constipation: -Continue Benefiber, Dulcolax, prunes (5) Hypoxia: -Noted hypoxia by admitting provider with saturations of 86 to 87% on room air -today oxygen saturations are appropriate with out supplemental O2 and will monitor (6) Pulmonary nodule: - Noted: Stable 6mm RLL on CTA which was neg for PE. Follow up as outpt. (7) DVT prophylaxis: - Heparin drip CODE: DNR Dispo: From the [facility] -we will continue to obtain appropriate rate control on oral regimen; will need to assess coverage for NOAC Subjective Patient reports feeling a little bit better today. However largely feels fatigued. She did not sleep well overnight. Heart rates are improved however still having tachycardia. She has not converted from atrial fibrillation at this time. She has had softer blood pressures overnight with Cardizem drip. Discussed with cardiology this morning current plan. Review of Systems Constitutional: + fatigue; no fever and no chills Ear, Nose, Mouth, Throat: no sore throat and no hoarseness Respiratory: no cough and no dyspnea Cardiovascular: no chest pain, no palpitations, no lightheadedness and no edema Gastrointestinal: no abdominal pain, no nausea, no vomiting, no constipation and no diarrhea/loose stools Genitourinary: no dysuria Integumentary: no rash Physical Exam Constitutional: WD/WN, vitals as above Eyes: + anicteric sclerae ENMT: Ears: no hearing impairment Neck: + trachea not midline Respiratory: normal respiratory effort, lungs clear to auscultation Cardiovascular: Rate/Rhythm: + tachycardic (Mildly) and + irregularly irregular Gastrointestinal (Abdomen): Inspection/Auscultation: normal bowel sounds Percussion/Palpation: abdomen soft; abdomen nontender Musculoskeletal: no cyanosis or clubbing, extremities motor strength 5/5 Head/Neck/Chest: normocephalic and head atraumatic Skin: no rashes, warm and dry Neurologic: moves all extremities Psychiatric: A+Ox3, euthymic affect Results & Data ([facility]) Vital Signs (Past 12 Hours) Vital Signs Temp Pulse Resp BP BP Pulse Ox 01/03/20 12:03 36.7 C 104 H 20 106/74 94 01/03/20 10:12 97 H 134/83 01/03/20 07:07 36.8 C 105 H 18 97/58 L 96 01/03/20 04:30 108/56 L PG Care Time/CCT Total # of Minutes Spent Total Time Spent with Patient: Total time spent is greater than 50% in coordination of care (as documented) at patient's floor/unit and/or counseling patient: Coding Level of Care Code 52082 Subseq Hosp Care Lvl 3 Diagnoses Atrial fibrillation with RVR I48.91 HLD (hyperlipidemia) E78.5 Hypothyroidism E03.9 Constipation K59.00 Hypoxia R09.02 Pulmonary nodule R91.1 DVT prophylaxis Z29.9
[2020-01-03] MEDS: SIMVASTATIN 20 MG TAB PO SCH (20:12)
[2020-01-03] MEDS: DOCUSATE SODIUM 100 MG CAP PO SCH (20:12)
[2020-01-04] MEDS: METOPROLOL TARTRATE 25 MG TAB PO SCH ×4 (03:57→21:47)
[2020-01-04 05:41] LABS: Hematocrit (blood only) 36.3 % (37-47); Hemoglobin 11.9 g/dL (12.0-16.0); Mean Corpuscular Hemoglobin 31.1 pg (25-34); Mean Corpuscular Hgb Conc 32.8 g/dL (32-36); Mean Corpuscular Volume 94.8 fL (80-100); Mean Platelet Volume 10.5 fL (7.4-10.4); Platelet Count 248 K/uL (130-400); RDW Standard Deviation 48.6 fL (36.4-46.3); Red Blood Count 3.83 M/uL (4.2-5.4); White Blood Count 8.18 K/uL (4.8-10.8)
[2020-01-04 05:59] LABS: Partial Thromboplastin Ratio 2.1; Partial Thromboplastin Time 58.2 Seconds (21.0-31.0)
[2020-01-04 06:06] LABS: Calcium 8.8 mg/dl (8.5-10.1); Creatinine Clr Calc Pharmacy 51.2 ml/min; Est GFR (African American) 64.9; Potassium 3.8 mmol/L (3.5-5.1)
[2020-01-04 06:13] LABS: Albumin Globulin Ratio 0.8 (0.9-2); Bilirubin,Total 0.3 mg/dl (0.2-1); Globulin 3.8 gm/dl (2.5-4.0); Total Protein 6.8 gm/dl (6.4-8.2); Troponin I 0.047 ng/ml (0-0.045)
[2020-01-04] MEDS: LEVOTHYROXINE SODIUM 125 MCG TABLET PO SCH (06:22)
[2020-01-04 06:39] LABS: Estimated Average Glucose 126 mg/dl
--- NOTE | 2020-01-04 08:20 | Cardiology Progress Note ---
Date of Service January 04, 2020 Assessment & Plan (1) Atrial fibrillation with RVR: (2) Chest pain: (3) Elevated troponin: (4) SOB (shortness of breath): ASSESSMENT/PLAN: 1. Atrial fibrillation with RVR: Overall, heart rate somewhat improved on metoprolol 25 mg q.6 hours. She has had intermittent mild hypotension (Asymptomatic) but this may limit further titration. We will start digoxin 0.25 mg IV x1 now followed by Q 6 hours 0.125 mg IV x2 doses. If this strategy does not adequately control her heart rate and her blood pressure does not allow for further titration of beta-mello, we discussed the fact that transesophageal echo and cardioversion may need to be considered during this hospital stay. She was agreeable for rate control strategy and open for more aggressive approach if necessary. Elevated chads Vasc score of 3. She was agreeable for anticoagulation to reduced risk of stroke. Would consider NOAC agent on discharge. TSH and electrolytes normal. 2. Chest pain: This occurred after exertion and may represent angina. It was in the setting of AFib with rapid ventricular response. We discussed the fact that her symptoms are likely due to demand ischemia with rapid heart rate and the possibility of underlying ischemic heart disease. She has not had rest symptoms. Continue to address her heart rate as above. No indication for urgent cardiac catheterization at this time. Trend troponins until peak. If she continues to have anginal symptoms with improved heart rate, may need to consider more aggressive approach. If blood pressure allows, could also consider nitrate therapy, but for now, address heart rate which should improve her symptoms. 3. Shortness of breath: She does appear a bit more hypervolemic today. She is coughing more. Will give 1 dose of IV Lasix. Would try to maintain net negative fluid balance. Monitor I & Os. Likely related to her atrial fibrillation. 4. Elevated troponin: Slightly elevated troponin in the setting with AFib with RVR. Plan as above. 5. Disposition: Cardiology will continue to follow. Plan of care discussed with primary hospitalist service, Heather Sierra. Subjective Last evening, she walked in the hallway and when she came back to her bed, she felt a heaviness in her chest. She also felt a bit short of breath. She had done earlier in the day while on a diltiazem drip, without chest discomfort. Although her heart rate is charted as improved in the nursing vital signs, when reviewing telemetry, her heart rate has remained tachycardic for the majority of time. She has noted a cough, which is nonproductive. She denies orthopnea, syncope, near-syncope, worsening edema, or bleeding. She was alone in her hospital room. Review of systems: As above. Physical Exam Physical Exam: Gen.: No acute distress. Alert and oriented. HEENT: Anicteric sclera. Neck: No JVD. Cardiac: Irregularly irregular and tachycardic. Normal S1-S2. No audible murmurs, rubs, or gallops. Pulmonary: Clear to auscultation bilaterally without wheezes, rales, or rhonchi. Abdomen: Soft, nontender, nondistended, with normoactive bowel sounds. No bruits noted. Extremities: 2+ radial pulses bilaterally. 2+ posterior tibialis pulses bilaterally. Bilateral lower extremities are large in diameter with mostly nonpitting edema. Bilateral lower extremity varicosities noted. No cyanosis. Psychiatric: Affect appears appropriate. Results & Data Vital Signs (Past 12 Hours) Vital Signs Temp Pulse Pulse Resp BP BP Pulse Ox 01/04/20 06:41 36.5 C 87 18 118/67 95 01/04/20 03:50 36.3 C L 79 18 108/74 95 01/03/20 23:41 125 H 01/03/20 23:34 36.7 C 85 18 89/57 L 95 Intake & Output 01/02/20 01/03/20 01/04/20 01/05/20 06:59 06:59 06:59 06:59 Intake Total 655.918 / 775.269 1488.133 / 2513.133 Balance 655.918 / 945.403 7446.133 / 2513.133 Weight 102.5 kg 102.7 kg Laboratory Results Laboratory Results - last 24 hr 01/03/20 01/03/20 01/04/20 05:26 05:26 05:20 WBC 9.93 RBC 3.87 L Hgb 12.2 Hct 36.8 L MCV 95.1 MCH 31.5 MCHC 33.2 RDW Std Deviation 49.2 H RDW Coeff of Power 14.2 Plt Count 271 MPV 11.3 H APTT 58.2 H* PTT Ratio 2.1 Sodium Potassium Chloride Carbon Dioxide Anion Gap BUN Creatinine Est Cr Clr Drug Dosing Est GFR ( Amer) Est GFR (Non-Af Amer) BUN/Creatinine Ratio Glucose Estimat Average Glucose 126 Hemoglobin A1c 6.0 H Calcium Total Bilirubin AST ALT Alkaline Phosphatase Troponin I Total Protein Albumin Globulin Albumin/Globulin Ratio 01/04/20 01/04/20 05:20 05:20 WBC 8.18 RBC 3.83 L Hgb 11.9 L Hct 36.3 L MCV 94.8 MCH 31.1 MCHC 32.8 RDW Std Deviation 48.6 H RDW Coeff of Power 14.0 Plt Count 248 MPV 10.5 H APTT PTT Ratio Sodium 139 Potassium 3.8 Chloride 106 Carbon Dioxide 27 Anion Gap 6.0 BUN 17 Creatinine 0.92 Est Cr Clr Drug Dosing 51.2 Est GFR ( Amer) 64.9 Est GFR (Non-Af Amer) 56.0 BUN/Creatinine Ratio 18.0 Glucose 113 H Estimat Average Glucose Hemoglobin A1c Calcium 8.8 Total Bilirubin 0.3 AST 14 L ALT 15 Alkaline Phosphatase 76 Troponin I 0.047 H* Total Protein 6.8 Albumin 3.0 L Globulin 3.8 Albumin/Globulin Ratio 0.8 L Diagnostic Findings Telemetry personally reviewed: Atrial fibrillation with rapid ventricular response. ECG personally reviewed: ECG 01/03/2020 at 10:16 p.m.: Atrial fibrillation with RVR at 112 bpm. Nonspecific T-wave abnormality. Echo 01/03/2020: Normal LV size with mildly to moderately reduced systolic function. EF 40-45%. Mild global hypokinesis. Moderate LVH. Mildly reduced RV systolic function. Mild right atrial dilation. Mild MR. Normal RVSP. Medications Administered Current Inpatient Medications Acetaminophen (Tylenol) 650 mg PO Q4H PRN PRN Reason: Moderate Pain Stop: 02/01/20 15:38 Last Admin: 01/03/20 21:59 Dose: 650 mg Documented by: Docusate Sodium (Colace) 100 mg PO HS LACIE Stop: 02/01/20 20:59 Last Admin: 01/03/20 20:12 Dose: 100 mg Documented by: Diltiazem HCl 125 mg/ Dextrose 125 mls @ 5 mls/hr IV .Q24H LACIE; Protocol Stop: 02/01/20 11:29 Last Titration: 01/04/20 06:59 Dose: 0 mg/hr, 0 mls/hr Documented by: Heparin Sodium/Dextrose (Heparin Sodium/Dextrose) 25,000 units in 500 mls @ 27 mls/hr IV .[id number] [facility]; Protocol Stop: 02/01/20 16:14 Last Titration: 01/04/20 06:58 Dose: 1,350 units/hr, 27 mls/hr Documented by: Levothyroxine Sodium (Synthroid) 125 mcg PO DAILYBB [facility] Stop: 02/02/20 06:29 Last Admin: 01/04/20 06:22 Dose: 125 mcg Documented by: Metoprolol Tartrate (Lopressor) 25 mg PO Q6H [facility] Stop: 02/02/20 08:59 Last Admin: 01/04/20 03:57 Dose: 25 mg Documented by: Multivitamins/Minerals (Caltrate Plus) [facility] [place] Stop: 02/02/20 08:59 Last Admin: 01/03/20 07:54 Dose: 1 tab Documented by: Multivitamins/Minerals (Multivitamin W/ Minerals Tab) 1 [facility] [place] Stop: 02/02/20 08:59 Last Admin: 01/03/20 07:53 Dose: 1 tab Documented by: Ondansetron HCl (Zofran) 4 mg IV Q4H PRN PRN Reason: Nausea And Vomiting Stop: 02/01/20 15:38 Pantoprazole Sodium (Protonix) 40 [facility] [place] Stop: 02/02/20 08:59 Last Admin: 01/03/20 07:54 Dose: 40 mg Documented by: Psyllium Hydrophilic Mucilloid (Metamucil) 1 pkt PO [facility] Stop: 02/02/20 08:59 Last Admin: 01/03/20 07:54 Dose: Not Given Documented by: Simvastatin (Zocor) 20 mg PO PM [facility] Stop: 02/01/20 20:59 Last Admin: 01/03/20 20:12 Dose: 20 mg Documented by: PG Care Time/CCT Total # of Minutes Spent Total Time Spent with Patient: Total time spent is greater than 50% in coordination of care (as documented) at patient's floor/unit and/or counseling patient: Coding Level of Care Code 98079 Subseq Hosp Care Lvl 3 Diagnoses Atrial fibrillation with RVR I48.91 Chest pain R07.9 Elevated troponin R79.89 SOB (shortness of breath) R06.02
[2020-01-04] MEDS ORDERED: DIGOXIN 250 MCG in SYRINGE 9 ML IV ONE (08:30)
[2020-01-04] MEDS: PSYLLIUM 58.6% POWDER PACKET PO SCH (08:43)
[2020-01-04] MEDS: CALCIUM 600MG + VIT D 400 IU TAB PO SCH (08:44)
[2020-01-04] MEDS: PANTOprazole 40 MG TAB PO SCH (08:44)
[2020-01-04] MEDS: CEROVITE ADV FORMULA TAB PO SCH (08:44)
[2020-01-04] MEDS ORDERED: FUROSEMIDE 20 MG in SYRINGE 0 ML IV ONE (09:15)
--- NOTE | 2020-01-04 12:44 | Electrocardiogram Report ---
Test Reason : Blood Pressure : / mmHG Vent. Rate : 112 BPM Atrial Rate : 089 BPM P-R Int : 000 ms QRS Dur : 086 ms QT Int : 334 ms P-R-T Axes : 000 -32 121 degrees QTc Int : 455 ms Atrial fibrillation with rapid ventricular response Left axis deviation Nonspecific T wave abnormality Abnormal ECG When compared with ECG of 02-JAN-2020 11:01, No significant change was found Confirmed by Kaiser Cerrato ([id number]) on 01/04/2020 12:43:35 PM Referred By: REFERRED SELF Confirmed By:Kaiser Cerrato
[2020-01-04] MEDS: DIGOXIN 125 MCG in SYRINGE 9.5 ML IV SCH ×2 (14:16→20:31)
[2020-01-04] MEDS: HEPARIN SODIUM/DEXTROSE 25,000 UNITS/500 ML BAG IV SCH (14:16)
--- NOTE | 2020-01-04 18:17 | Hospitalist Progress Note ---
Date of Service January 04, 2020 Assessment & Plan (1) Atrial fibrillation with RVR: - New onset - however when rates are controlled she states she does not feel palpitations or fluttering so it could have been present previously - however never diagnosed until now -- In hindsight, feels that she has been getting more fatigued with less exertion prior to coming into the hospital and feels like maybe some of these issues have been going on for awhile - Echo - EF 40-45% with mild global hypokinesis; moderate LVH - Continue heparin gtt - planning on NOAC on D/C -- CHADSVASC 3 - BP making titration limited; Lopressor 25 mg Q6H; Started loading dose of digoxin and continue Dig 0.125 mcg Q6H x 2 doses -- Patient does agree to SATYA/Cardioversion if response not obtain with medical management - not certain if exertional symptoms are due to rates vs rhythm alone and may be intolerable to this rhythm - Trops at 0.048 and likely will peak here but will obtain in AM - Lasix x 1 dose given today and already good urinary response - can reassess for further dosing needs -Had some desaturations on admission which responded to supplemental O2 -has been on room air this morning with appropriate oxygenation and will monitor -CTA negative for pulmonary emboli, stable 6 mm nodule in right lower lobe, chronic stable interstitial thickening (2) HLD (hyperlipidemia): -Continue simvastatin 20 mg HS (3) Hypothyroidism: -TSH WNL -Continue levothyroxine 125 mcg daily (4) Constipation: -Continue Benefiber, Dulcolax, prunes (5) Hypoxia: -Noted hypoxia by admitting provider with saturations of 86 to 87% on room air -oxygen saturations are appropriate with out supplemental O2 and will monitor (6) Pulmonary nodule: - Noted: Stable 6mm RLL on CTA which was neg for PE. Follow up as outpt. (7) DVT prophylaxis: - Heparin drip CODE: DNR Dispo: [facility] -we will continue to obtain appropriate rate control on oral regimen/may need cardioversion in coming days; will need to assess coverage for NOAC Subjective Reports feeling better today. Less chest pressure and fatigue. Slept well overnight. Still in atrial fibrillation and rates somewhat better. Still tachycardic at times but seems less symptomatic. Had a good response with a dose of Lasix this AM. Reports breathing is easier. Likely could benefit from more dosing pending re-assessment. She verbalizes no new complaints. Discussed with Dr. Moon this AM. Review of Systems Constitutional: + fatigue (improving); no fever and no chills Respiratory: + cough; no dyspnea and no sputum production Cardiovascular: no chest pain, no palpitations, no lightheadedness and no edema Gastrointestinal: no abdominal pain, no nausea, no vomiting, no constipation and no diarrhea/loose stools Genitourinary: no dysuria Musculoskeletal: no body aches Integumentary: no rash Physical Exam Constitutional: WD/WN, vitals as above Eyes: + anicteric sclerae ENMT: Ears: no hearing impairment Neck: trachea midline Respiratory: normal respiratory effort, lungs clear to auscultation Cardiovascular: Rate/Rhythm: + tachycardic (Mildly) and + irregularly irregular Gastrointestinal (Abdomen): Inspection/Auscultation: normal bowel sounds Percussion/Palpation: abdomen soft; abdomen nontender Musculoskeletal: no cyanosis or clubbing, extremities motor strength 5/5 Head/Neck/Chest: normocephalic and head atraumatic Skin: no rashes, warm and dry Neurologic: moves all extremities Psychiatric: A+Ox3, euthymic affect Results & Data ([facility]) Vital Signs (Past 12 Hours) Vital Signs Temp Pulse Pulse Resp BP BP Pulse Ox 01/04/20 16:12 36.9 C 110 H 18 109/70 95 01/04/20 16:00 98 H 01/04/20 14:16 89 01/04/20 11:11 37.0 C 85 19 104/71 95 01/04/20 08:47 88 01/04/20 06:41 36.5 C 87 18 118/67 95 PG Care Time/CCT Total # of Minutes Spent Total Time Spent with Patient: Total time spent is greater than 50% in coordination of care (as documented) at patient's floor/unit and/or counseling patient: Coding Level of Care Code 91940 Subseq Hosp Care Lvl 3 Diagnoses Atrial fibrillation with RVR I48.91 HLD (hyperlipidemia) E78.5 Hypothyroidism E03.9 Constipation K59.00 Hypoxia R09.02 Pulmonary nodule R91.1 DVT prophylaxis Z29.9
[2020-01-04] MEDS: DOCUSATE SODIUM 100 MG CAP PO SCH (20:34)
[2020-01-04] MEDS: SIMVASTATIN 20 MG TAB PO SCH (20:34)
[2020-01-05] MEDS: LEVOTHYROXINE SODIUM 125 MCG TABLET PO SCH (05:35)
[2020-01-05] MEDS: METOPROLOL TARTRATE 25 MG TAB PO SCH ×4 (05:36→17:38)
[2020-01-05 07:46] LABS: Hematocrit (blood only) 37.8 % (37-47); Hemoglobin 12.9 g/dL (12.0-16.0); Mean Corpuscular Hemoglobin 31.6 pg (25-34); Mean Corpuscular Hgb Conc 34.1 g/dL (32-36); Mean Corpuscular Volume 92.6 fL (80-100); Mean Platelet Volume 10.9 fL (7.4-10.4); Platelet Count 290 K/uL (130-400); RDW Coefficient of Variation 13.8 % (11.5-14.5); RDW Standard Deviation 46.5 fL (36.4-46.3); Red Blood Count 4.08 M/uL (4.2-5.4); White Blood Count 10.08 K/uL (4.8-10.8)
[2020-01-05] MEDS: PSYLLIUM 58.6% POWDER PACKET PO SCH (07:55)
[2020-01-05] MEDS: CEROVITE ADV FORMULA TAB PO SCH (07:55)
[2020-01-05] MEDS: PANTOprazole 40 MG TAB PO SCH (07:55)
[2020-01-05] MEDS: CALCIUM 600MG + VIT D 400 IU TAB PO SCH (07:55)
[2020-01-05 08:05] LABS: Albumin Level 3.3 gm/dl (3.4-5.0); Calcium 9.1 mg/dl (8.5-10.1); Creatinine Clr Calc Pharmacy 49.3 ml/min; Est GFR (African American) 62.4; Est GFR (Non-African American) 53.9
[2020-01-05 08:06] LABS: Partial Thromboplastin Ratio 2.1
[2020-01-05 08:09] LABS: Albumin Globulin Ratio 0.8 (0.9-2); Bilirubin,Total 0.4 mg/dl (0.2-1); Partial Thromboplastin Time 56.8 Seconds (21.0-31.0); Total Protein 7.3 gm/dl (6.4-8.2); Troponin I 0.041 ng/ml (0-0.045)
[2020-01-05] MEDS: HEPARIN SODIUM/DEXTROSE 25,000 UNITS/500 ML BAG IV SCH ×2 (08:13→13:31)
--- NOTE | 2020-01-05 10:31 | Cardiology Progress Note ---
Date of Service January 05, 2020 Assessment & Plan (1) Atrial fibrillation with RVR: (2) Chest pain: (3) Elevated troponin: (4) SOB (shortness of breath): ASSESSMENT/PLAN: Atrial Fibrillation with RVR: -- Heart rates at rest are reasonable (80 to 105 bpm) but HR still jump up into the 140's. -- Increase Metoprolol Tartrate to 37.5 mg q 6 hours. -- Patient received loading dose of yesterday including Digoxin 0.25 mg IV x1 now followed by Q 6 hours 0.125 mg IV x 2 doses. -- Continue Digoxin 125 mcg daily. -- Monitor response to medication changes. -- Patient will be made NPO after midnight except for medications in preparation of SATYA and Cardioversion if needed tomorrow morning. She was agreeable for rate control strategy and open for more aggressive approach if necessary. -- Elevated [id number] score of 3. -- Recommend converting to Eliquis upon discharge. Chest Pain: -- This occurred after exertion on one occasion and may represent angina in the setting of AFib with rapid ventricular response. -- Likely due to demand ischemia with rapid heart rate and the possibility of underlying ischemic heart disease. -- Troponin I peaked at 0.048 ng/ml. -- No indication for urgent cardiac catheterization at this time. -- If she would have any anginal symptoms with improved heart rate, may need to consider more aggressive approach. Shortness of breath: -- She does appear a bit more hypervolemic today. -- Agree with diuretic dose x 1 today. -- Maintain net negative fluid balance. -- Monitor I & Os. -- Likely related to her atrial fibrillation and reduced LV systolic function. Elevated troponin: -- As outlined above. Supervising Physician Co-Signing Physician Notes Kaiser Cerrato MD Subjective Mrs. Pryor is an 89 year old female who was admitted with newly diagnosed Atrial Fibrillation with RVR with an unknown date of onset -- who is being seen in room 241-2. Patient states that she doesn't feel well today -- she describes a co ugh, dyspnea on exertion, and her HR at rest has improved (85 to 105 bpm) but on telemetry she is still experiencing HR into the 140's with very little activity. She denies any chest pain, heaviness, tightness, or pressure. No neck, jaw, back, or arm pain. She denies any orthopnea or pnd. She denies any syncope or near syncope. BP has improved off of Diltiazem drip. Patient received a loading dose of Digoxin yesterday. She is on Lopressor 25 mg q 6 hours and a Heparin drip. She denies any symptoms suggestive of stroke or mini-stroke. Physical Exam Physical Exam: GENERAL: Patient in no acute distress. HEENT: Head is atraumatic, normocephalic. EOM's intact. Facies symmetric. No perioral cyanosis. NECK: No JVD. JVP is elevated. Carotid upstrokes are + 2 bilaterally without obvious bruits. CHEST/LUNGS: Increased breath sounds in bilateral bases, bibasilar crackles. CVS: S1 and S2 are irregularly irregular with an apical rate of 100 bpm. No obvious murmurs, gallops, or rubs. PMI is nonpalpable. No lifts, heaves, or thrills. No abdominal aortic or renal bruits. ABDOMINAL EXAM: Bowel sounds are present. No masses, organomegaly, or tenderness. EXTREMITIES: No clubbing or cyanosis. Legs appear to have lymphedema, but no significant pitting edema. Intact posterior tibial and radial pulses bilaterally. NEUROLOGIC EXAM: Patient is awake, alert, and oriented. Pleasant and cooperative. Answers questions appropriately. Speech is clear. Normal movement in all 4 extremities. TELEMETRY: -- Atrial fibrillation with improved ventricular response rates (80 to 105 bpm at rest), but still has V rates into the 140's at times. ECHOCARDIOGRAM 01/03/2020: -- Normal LV size with mildly to moderately reduced LV systolic function. -- LVEF 40% to 45% with global hypokinesis. -- Moderate concentric LVH. -- Mild MR. Results & Data Vital Signs (Past 12 Hours) Vital Signs Temp Pulse Pulse Resp BP Pulse Ox 01/05/20 07:04 37.1 C 74 18 114/65 95 01/05/20 02:54 36.7 C 79 17 135/82 97 01/05/20 00:00 80 01/04/20 23:48 36.7 C 102 H 18 106/71 93 Laboratory Results Laboratory Results - last 24 hr 01/04/20 01/05/20 01/05/20 14:53 07:21 07:21 WBC 10.08 RBC 4.08 L Hgb 12.9 Hct 37.8 MCV 92.6 MCH 31.6 MCHC 34.1 RDW Std Deviation 46.5 H RDW Coeff of Power 13.8 Plt Count 290 MPV 10.9 H APTT 56.8 H* PTT Ratio 2.1 Sodium Potassium Chloride Carbon Dioxide Anion Gap BUN Creatinine Est Cr Clr Drug Dosing Est GFR ( Amer) Est GFR (Non-Af Amer) BUN/Creatinine Ratio Glucose Calcium Total Bilirubin AST ALT Alkaline Phosphatase Troponin I 0.048 H* Total Protein Albumin Globulin Albumin/Globulin Ratio 01/05/20 01/05/20 07:21 07:21 WBC RBC Hgb Hct MCV MCH MCHC RDW Std Deviation RDW Coeff of Power Plt Count MPV APTT PTT Ratio Sodium 139 Potassium 4.0 Chloride 106 Carbon Dioxide 27 Anion Gap 6.0 BUN 18 Creatinine 0.95 Est Cr Clr Drug Dosing 49.3 Est GFR ( Amer) 62.4 Est GFR (Non-Af Amer) 53.9 BUN/Creatinine Ratio 19.0 Glucose 114 H Calcium 9.1 Total Bilirubin 0.4 AST 16 ALT 19 Alkaline Phosphatase 77 Troponin I 0.041 Cancelled Total Protein 7.3 Albumin 3.3 L Globulin 4.0 Albumin/Globulin Ratio 0.8 L Medications Administered Active Medications Generic Name Dose Route Start Last Admin Trade Name Freq PRN Reason Stop Dose Admin Acetaminophen 650 mg 01/02/20 15:39 01/03/20 21:59 Tylenol PO 02/01/20 15:38 650 mg Q4H PRN Administration Moderate Pain Digoxin 0.125 mg 01/05/20 16:00 Lanoxin PO 02/04/20 15:59 DAILY@1600 [facility] Docusate Sodium 100 mg 01/02/20 21:00 01/04/20 20:34 Colace PO 02/01/20 20:59 100 mg HS LACIE Administration Diltiazem HCl 125 mg/ Dextrose 125 mls @ 5 mls/hr 01/02/20 11:30 01/04/20 19:46 IV 02/01/20 11:29 Infused .Q24H LACIE Titration Protocol 5 MG/HR Heparin Sodium/Dextrose 25,000 units in 500 mls @ 27 mls/hr 01/02/20 16:15 01/05/20 08:13 Heparin Sodium/Dextrose IV 02/01/20 16:14 Not Given .[id number] LACIE Protocol 1,350 UNITS/HR Levothyroxine Sodium 125 mcg 01/03/20 06:30 01/05/20 05:35 Synthroid PO 02/02/20 06:29 125 mcg DAILYBB LACIE Administration Metoprolol Tartrate 37.5 mg 01/05/20 12:00 Lopressor PO 02/04/20 11:59 Q6 LACIE Multivitamins/Minerals 1 tab 01/03/20 09:00 01/05/20 07:55 Caltrate Plus PO 02/02/20 08:59 1 tab QAM LACIE Administration Multivitamins/Minerals 1 tab 01/03/20 09:00 01/05/20 07:55 Multivitamin W/ Minerals Tab PO 02/02/20 08:59 1 tab QAM LACIE Administration Ondansetron HCl 4 mg 01/02/20 15:39 Zofran IV 02/01/20 15:38 Q4H PRN Nausea And Vomiting Pantoprazole Sodium 40 mg 01/03/20 09:00 01/05/20 07:55 Protonix PO 02/02/20 08:59 40 mg QAM LACIE Administration Psyllium Hydrophilic Mucilloid 1 pkt 01/03/20 09:00 01/05/20 07:55 Metamucil PO 02/02/20 08:59 Not Given QAM LACIE Simvastatin 20 mg 01/02/20 21:00 01/04/20 20:34 Zocor PO 02/01/20 20:59 20 mg PM LACIE Administration PG Care Time/CCT Total # of Minutes Spent Total Time Spent with Patient: Total time spent is greater than 50% in coordination of care (as documented) at patient's floor/unit and/or counseling patient: Coding Level of Care Code 43529 Subseq Hosp Care Lvl 3 Diagnoses Atrial fibrillation with RVR I48.91 Chest pain R07.9 Elevated troponin R79.89 SOB (shortness of breath) R06.02
[2020-01-05] MEDS ORDERED: FUROSEMIDE 20 MG in SYRINGE 0 ML IV ONE (13:15)
--- NOTE | 2020-01-05 13:19 | Hospitalist Progress Note ---
Date of Service January 05, 2020 Assessment & Plan (1) Atrial fibrillation with RVR: - New onset - however when rates are controlled she states she does not feel palpitations or fluttering so it could have been present previously - however never diagnosed until now -- In hindsight, feels that she has been getting more fatigued with less exertion prior to coming into the hospital and feels like maybe some of these issues have been going on for awhile - Echo - EF 40-45% with mild global hypokinesis; moderate LVH - Continue heparin gtt - planning on NOAC on D/C - Eliquis will be $33 a month and will need to discuss with patient -- CHADSVAS 3 - BP making titration limited at least initially however it has been stabilized; Lopressor increased to 37.5 mg Q6H; Started loading dose of digoxin and continue Dig 0.125 mcg Q6H x 2 doses on 01/04 and now on Digoxin 0.125 mg daily -- Patient does agree to SATYA/Cardioversion if response not obtained with medical management - not certain if exertional symptoms are due to rates vs rhythm alone and may be intolerable to this rhythm -- Place NPO at midnight except meds in preparation - Trops peaked and trending down - Intermittent Lasix per assessment - good response with first dose and will do another today - likely due to rhythm and reduced EF -Had some desaturations on admission which responded to supplemental O2 -has been on room air this morning with appropriate oxygenation and will monitor -CTA negative for pulmonary emboli, stable 6 mm nodule in right lower lobe, chronic stable interstitial thickening (2) HLD (hyperlipidemia): -Continue simvastatin 20 mg HS (3) Hypothyroidism: -TSH WNL -Continue levothyroxine 125 mcg daily (4) Constipation: -Continue Benefiber, Dulcolax, prunes (5) Hypoxia: -Noted hypoxia by admitting provider with saturations of 86 to 87% on room air -oxygen saturations are appropriate with out supplemental O2 and will mo nitor (6) Pulmonary nodule: - Noted: Stable 6mm RLL on CTA which was neg for PE. Follow up as outpt. (7) DVT prophylaxis: - Heparin drip CODE: DNR Dispo: From the [facility] -we will continue to obtain appropriate rate control on oral regimen/may need cardioversion; Continue PT/OT Subjective Reports she was feeling well this AM however got fatigued with walking this morning. Getting some lightheadedness with this. However, states her chest wasn't bothering her. Her rates are doing better but still spiking up to 120- 140. She continues to have some SOB and a nonproductive cough that improved with Lasix yesterday. Will do another dose today. Possibility of cardioversion Review of Systems Constitutional: + fatigue (improving but worsens after exertion); no fever and no chills Respiratory: + cough and + dyspnea on exertion; no dyspnea and no sputum production Cardiovascular: + lightheadedness (intermittent); no chest pain, no palpitations and no edema Gastrointestinal: no abdominal pain, no nausea, no vomiting, no constipation and no diarrhea/loose stools Genitourinary: no dysuria Integumentary: no rash Physical Exam Constitutional: WD/WN, vitals as above Eyes: + anicteric sclerae ENMT: Ears: no hearing impairment Neck: trachea midline Respiratory: normal respiratory effort Auscultation: + crackles Cardiovascular: Rate/Rhythm: regular rate and + irregularly irregular Gastrointestinal (Abdomen): Inspection/Auscultation: normal bowel sounds Percussion/Palpation: abdomen soft; abdomen nontender Musculoskeletal: no cyanosis or clubbing, extremities motor strength 5/5 Head/Neck/Chest: normocephalic and head atraumatic Skin: no rashes, warm and dry Neurologic: moves all extremities Psychiatric: A+Ox3, euthymic affect Results & Data ([facility]) Vital Signs (Past 12 Hours) Vital Signs Temp Pulse Resp BP BP Pulse Ox 01/05/20 11:49 36.9 C 65 19 113/73 95 01/05/20 07:04 37.1 C 74 18 114/65 95 01/05/20 02:54 36.7 C 79 17 135/82 97 PG Care Time/CCT Total # of Minutes Spent Total Time Spent with Patient: Total time spent is greater than 50% in coordination of care (as documented) at patient's floor/unit and/or counseling patient: Coding Level of Care Code 11141 Subseq Hosp Care Lvl 3 Diagnoses Atrial fibrillation with RVR I48.91 HLD (hyperlipidemia) E78.5 Hypothyroidism E03.9 Constipation K59.00 Hypoxia R09.02 Pulmonary nodule R91.1 DVT prophylaxis Z29.9
[2020-01-05] MEDS ORDERED: DIGOXIN 0.125 MG TAB PO SCH (16:00)
[2020-01-05] MEDS: SIMVASTATIN 20 MG TAB PO SCH (20:56)
[2020-01-05] MEDS: DOCUSATE SODIUM 100 MG CAP PO SCH (20:57)
[2020-01-06] MEDS: METOPROLOL TARTRATE 25 MG TAB PO SCH ×3 (00:03→12:31)
[2020-01-06] MEDS: LEVOTHYROXINE SODIUM 125 MCG TABLET PO SCH (05:12)
[2020-01-06 07:49] LABS: Partial Thromboplastin Time 80.2 Seconds (21.0-31.0)
[2020-01-06] MEDS: HEPARIN SODIUM/DEXTROSE 25,000 UNITS/500 ML BAG IV SCH (07:59)
[2020-01-06 08:29] LABS: Hematocrit (blood only) 39.6 % (37-47); Hemoglobin 13.1 g/dL (12.0-16.0); Mean Corpuscular Hemoglobin 31.4 pg (25-34); Mean Corpuscular Hgb Conc 33.1 g/dL (32-36); Mean Platelet Volume 11.6 fL (7.4-10.4); Platelet Count 267 K/uL (130-400); RDW Coefficient of Variation 13.9 % (11.5-14.5); RDW Standard Deviation 47.9 fL (36.4-46.3); Red Blood Count 4.17 M/uL (4.2-5.4)
[2020-01-06 08:33] LABS: BUN Creatinine Ratio 16.3 (10-20); Calcium 9.6 mg/dl (8.5-10.1); Creatinine Clr Calc Pharmacy 46.4 ml/min; Potassium 3.8 mmol/L (3.5-5.1)
[2020-01-06] MEDS: PSYLLIUM 58.6% POWDER PACKET PO SCH (08:54)
[2020-01-06] MEDS: CEROVITE ADV FORMULA TAB PO SCH ×2 (08:54→13:42)
[2020-01-06] MEDS: CALCIUM 600MG + VIT D 400 IU TAB PO SCH ×2 (08:54→13:42)
[2020-01-06] MEDS: PANTOprazole 40 MG TAB PO SCH ×2 (08:55→13:42)
--- NOTE | 2020-01-06 10:09 | Cardiology Progress Note ---
Date of Service January 06, 2020 Assessment & Plan (1) Atrial fibrillation with RVR: (2) Chest pain: (3) Elevated troponin: (4) SOB (shortness of breath): ASSESSMENT/PLAN: 1. Atrial fibrillation with RVR: She continues to feel dyspneic with exertion, with intermittent chest discomfort and fatigue. Although heart rate has improved, she is still tachycardic more often than not while awake. There is now concerned that perhaps escalating doses of metoprolol are causing more fatigue. Recommend transesophageal echo and if no thrombus, cardioversion. She was agreeable. Risk benefits discussed with her. Dr. Cerrato will be the performing advertisement distributor. Dr. Cerrato and I have discussed treatment plan. If cardioversion is successful, recommend amiodarone orally, and will discontinue digoxin. Beta-mello will likely need to be adjusted based on heart rate while starting amiodarone and when discharged, would recommend metoprolol succinate in place of metoprolol tartrate. Potential adverse reactions of amiodarone were discussed with her and her . Elevated chads Vasc score of 3. She was agreeable for anticoagulation to reduced risk of stroke. Would consider NOAC agent on discharge. TSH and electrolytes normal. 2. Chest pain: This has been intermittent issue during the hospitalization. Symptoms more constant now. ECG ordered. Hopefully symptoms improve if atrial fibrillation can be successfully converted to sinus. If not, will consider further ischemic evaluation. 3. Shortness of breath: Volume status appears improved. She diuresed nicely yesterday with Lasix 20 mg IV. Consider re-dosing later today after cardioversion if she continues to experience intermittent shortness of breath. 4. Elevated troponin: Slightly elevated troponin in the setting with AFib with RVR. Plan as above. 5. Disposition: Cardiology will continue to follow. Plan of care discussed with primary hospitalist service, Dr. Cormier, and on-call advertisement distributor, Dr. Cerrato. I will be away from the hospital for the next 4 days. Please call on- call advertisement distributor for any questions or concerns. Subjective Yesterday, metoprolol was increased by Mr. Jones. Her heart rate overnight was much improved and acceptable. While laying in bed however now that she is awake, her heart rate is 90s, low 100s and sometimes still as high as 120s or 130s. She does not feel well. She has heaviness at times feels fatigued and has dyspnea with exertion. She denies shortness of breath at rest. She feels worse today than yesterday with escalating doses of metoprolol. She would like to undergo cardioversion. Risk and benefits of transesophageal echo and cardioversion were discussed with her. She has been n.p.o. since last evening. Her was present at the bedside this morning. She denies syncope, near syncope, or bleeding. Review of systems: As above. Physical Exam Physical Exam: Gen.: No acute distress. Alert and oriented. HEENT: Anicteric sclera. Neck: No appreciated JVD. Cardiac: Irregularly irregular and intermittently tachycardic. Normal S1-S2. No audible murmurs, rubs, or gallops. Pulmonary: Clear to auscultation bilaterally without wheezes, rales, or rhonchi. Abdomen: Soft, nontender, nondistended, with normoactive bowel sounds. No bruits noted. Extremities: 2+ radial pulses bilaterally. 2+ posterior tibialis pulses bilaterally. Bilateral lower extremities are large in diameter with mostly nonpitting edema. Bilateral lower extremity varicosities noted. No cyanosis. Psychiatric: Affect appears appropriate. Results & Data Vital Signs (Past 12 Hours) Vital Signs Temp Pulse Pulse Resp BP BP Pulse Ox 01/06/20 07:15 37.3 C 89 20 129/77 96 01/06/20 05:00 77 111/76 01/06/20 03:41 36.7 C 74 18 130/77 96 01/06/20 00:00 135 H 01/05/20 23:55 36.4 C L 67 18 98/63 L 94 Intake & Output 01/04/20 01/05/20 01/06/20 01/07/20 06:59 06:59 06:59 06:59 Intake Total 2513.133 / 2513.133 1223.00 / 1540.25 1288.00 / 1288.00 346.50 / 346.50 Output Total 2100 / 2100 2400 / 2400 Balance 2513.133 / 2513.133 -877.00 / -559.75 -1112.00 / -1112.00 346.50 / 346.50 Weight 102.7 kg 101.6 kg Laboratory Results Laboratory Results - last 24 hr 01/06/20 01/06/20 01/06/20 06:48 06:48 06:48 WBC 10.70 RBC 4.17 L Hgb 13.1 Hct 39.6 MCV 95.0 MCH 31.4 MCHC 33.1 RDW Std Deviation 47.9 H RDW Coeff of Power 13.9 Plt Count 267 MPV 11.6 H APTT 80.2 H* PTT Ratio 3.0 Sodium 138 Potassium 3.8 Chloride 104 Carbon Dioxide 27 Anion Gap 6.0 BUN 17 Creatinine 1.01 Est Cr Clr Drug Dosing 46.4 Est GFR ( Amer) 58.0 Est GFR (Non-Af Amer) 50.0 BUN/Creatinine Ratio 16.3 Glucose 112 H Calcium 9.6 Magnesium 2.0 Diagnostic Findings Telemetry personally reviewed: Atrial fibrillation with intermittent reasonable rate control but otherwise tachycardic when awake. Medications Administered Current Inpatient Medications Acetaminophen (Tylenol) 650 mg PO Q4H PRN PRN Reason: Moderate Pain Stop: 02/01/20 15:38 Last Admin: 01/03/20 21:59 Dose: 650 mg Documented by: Docusate Sodium (Colace) 100 mg PO HS [facility] Stop: 02/01/20 20:59 Last Admin: 01/05/20 20:57 Dose: 100 mg Documented by: Diltiazem HCl 125 mg/ Dextrose 125 mls @ 5 mls/hr IV .Q24H [facility]; Protocol Stop: 02/01/20 11:29 Last Titration: 01/04/20 19:46 Dose: Infused Documented by: Heparin Sodium/Dextrose (Heparin Sodium/Dextrose) 25,000 units in 500 mls @ 24 mls/hr IV .[id number] [facility]; Protocol Stop: 02/01/20 16:14 Last Titration: 01/06/20 08:36 Dose: 1,200 units/hr, 24 mls/hr Documented by: Levothyroxine Sodium (Synthroid) 125 mcg PO DAILYBB [facility] Stop: 02/02/20 06:29 Last Admin: 01/06/20 05:12 Dose: 125 mcg Documented by: Metoprolol Tartrate (Lopressor) 37.5 mg PO Q6 [facility] Stop: 02/04/20 11:59 Last Admin: 01/06/20 05:12 Dose: 37.5 mg Documented by: Multivitamins/Minerals ([facility]trate Plus) [facility] Stop: 02/02/20 08:59 Last Admin: 01/06/20 08:54 Dose: Not Given Documented by: Multivitamins/Minerals (Multivitamin W/ Minerals Tab) [facility] Stop: 02/02/20 08:59 Last Admin: 01/06/20 08:54 Dose: Not Given Documented by: Ondansetron HCl (Zofran) 4 mg IV Q4H PRN PRN Reason: Nausea And Vomiting Stop: 02/01/20 15:38 Pantoprazole Sodium (Protonix) [facility] Stop: 02/02/20 08:59 Last Admin: 01/06/20 08:55 Dose: Not Given Documented by: Psyllium Hydrophilic Mucilloid (Metamucil) 1 pkt PO [facility] Stop: 02/02/20 08:59 Last Admin: 01/06/20 08:54 Dose: Not Given Documented by: Simvastatin (Zocor) 20 mg PO PM [facility] Stop: 02/01/20 20:59 Last Admin: 01/05/20 20:56 Dose: 20 mg Documented by: PG Care Time/CCT Total # of Minutes Spent Total Time Spent with Patient: Total time spent is greater than 50% in coordination of care (as documented) at patient's floor/unit and/or counseling patient: Coding Level of Care Code 12100 Subseq Hosp Care Lvl 3 Diagnoses Atrial fibrillation with RVR I48.91 Chest pain R07.9 Elevated troponin R79.89 SOB (shortness of breath) R06.02
--- NOTE | 2020-01-06 10:43 | Anesthesiology Consultation ---
Date of Service January 06, 2020 Assessment & Plan (1) Encounter for pre-operative examination: Chart Review Chart Review: Acceptable Risk for Surgery and Patient NOT seen in Pre Admission Testing Consults Requested none cardiology following History Surgery Operation Date: 01/06/20 11:00 Proposed Procedures p Cardioversion Corporate Receptionist w/Anesthesia - Kaiser Cerrato MD Height/Weight Height: 5 ft 5 in Weight: 101.6 kg Allergies Allergy/AdvReac Type Severity Reaction Status Date / Time Penicillins Allergy Intermediate RASH Verified 01/02/20 12:25 adhesive Allergy Mild ADHESIVE Verified 01/02/20 12:25 TAPE-rash redness nickel Allergy Mild IRRITATION Verified 01/02/20 12:25 oxycodone AdvReac Severe SEVERE Verified 01/02/20 12:25 VOMITING Medications Home Medications Medication Instructions Recorded Confirmed Last Taken calcium carbonate-vitamin D3 1 tab PO QAM 08/09/18 01/02/20 01/02/20 [Calcium 500 With D] levothyroxine 125 mcg PO QAM 08/09/18 01/02/20 01/02/20 [id number] acid 1 tab PO QAM 08/09/18 01/02/20 01/02/20 [Multi-Day with Iron] simvastatin 20 mg PO PM 08/09/18 01/02/20 01/01/20 docusate sodium 100 mg PO HS 01/02/20 01/02/20 01/01/20 pantoprazole 40 mg PO QAM 01/02/20 01/02/20 01/02/20 wheat dextrin [Benefiber Sugar 3 g PO QAM 01/02/20 01/02/20 01/02/20 Free (dextrin)] Active Medications Generic Name Dose Route Start Last Admin Trade Name Freq PRN Reason Stop Dose Admin Acetaminophen 650 mg 01/02/20 15:39 01/03/20 21:59 Tylenol PO 02/01/20 15:38 650 mg Q4H PRN Administration Moderate Pain Docusate Sodium 100 mg 01/02/20 21:00 01/05/20 20:57 Colace PO 02/01/20 20:59 100 mg HS LACIE Administration Diltiazem HCl 125 mg/ Dextrose 125 mls @ 5 mls/hr 01/02/20 11:30 01/04/20 19:46 IV 02/01/20 11:29 Infused .Q24H LACIE Titration Protocol 5 MG/HR Heparin Sodium/Dextrose 25,000 units in 500 mls @ 24 mls/hr 01/02/20 16:15 01/06/20 08:36 Heparin Sodium/Dextrose IV 02/01/20 16:14 1,200 units/hr .[id number] LACIE 24 mls/hr Titration Protocol 1,200 UNITS/HR Levothyroxine Sodium 125 mcg 01/03/20 06:30 01/06/20 05:12 Synthroid PO 02/02/20 06:29 125 mcg DAILYBB LACIE Administration Metoprolol Tartrate 37.5 mg 01/05/20 12:00 01/06/20 05:12 Lopressor PO 02/04/20 11:59 37.5 mg Q6 LACIE Administration Multivitamins/Minerals 1 tab 01/03/20 09:00 01/06/20 08:54 Caltrate Plus PO 02/02/20 08:59 Not Given QAM LACIE Multivitamins/Minerals 1 tab 01/03/20 09:00 01/06/20 08:54 Multivitamin W/ Minerals Tab PO 02/02/20 08:59 Not Given QAM LACIE Pantoprazole Sodium 40 mg 01/03/20 09:00 01/06/20 08:55 Protonix PO 02/02/20 08:59 Not Given QAM LACIE Psyllium Hydrophilic Mucilloid 1 pkt 01/03/20 09:00 01/06/20 08:54 Metamucil PO 02/02/20 08:59 Not Given QAM LACIE Simvastatin 20 mg 01/02/20 21:00 01/05/20 20:56 Zocor PO 02/01/20 20:59 20 mg PM LACIE Administration Past Medical History Medical History (Updated 01/06/20 @ 10:50 by Que Mariee MD) 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 Atrial fibrillation with rapid ventricular response Chest pain DJD of shoulder GERD (gastroesophageal reflux disease) Hemorrhoid (Acute) Hyperlipidemia Hypothyroidism (Chronic) Hypothyroidism Lower GI bleed (Acute) Palpitations (Acute) Past Family History Family History Father Myocardial infarction Past Surgical History Surgical History (Updated 01/06/20 @ 10:58 by Que Mariee MD) History of back surgery History of hip surgery History of knee surgery History of shoulder surgery History of thyroidectomy No pertinent past surgical history Social History Smoking Status: Former smoker Do You Dip or Chew Tobacco: No Hx Alcohol Use: No Hx Substance Use: No substance use type: does not use Physical Exam Vital Signs Last Vital Signs Temp 37.3 C 01/06/20 07:15 Pulse 147 H 01/06/20 10:39 Resp 18 01/06/20 10:39 BP 157/107 H 01/06/20 10:39 Pulse Ox 95 01/06/20 10:39 Testing Laboratory Results 01/06/20 06:48 01/06/20 06:48 PT 9.9 Seconds (9.0-12.0) 01/02/20 11:10 INR 1.0 (0.9-1.1) 01/02/20 11:10 APTT 80.2 Seconds (21.0-31.0) H* 01/06/20 06:48 Hemoglobin A1c 6.0 % (4.5-5.6) H 01/03/20 05:26 Electrocardiogram Date: 01/03/20 Findings: + NSST changes and + AFIB @ (112) Echocardiogram Date: 01/03/20 EF: 40-45 Other Findings: + atrial enlargement (mid dilation) Valvular Disease: + MR (mild) Other Testing CHEST CTA for PULMONARY ARTERIES CT DOSE: 487.41 mGy.cm HISTORY: Atypical chest pain. TECHNIQUE: Multiaxial CT images of the chest were performed following the intr avenous administration of contrast to evaluate the pulmonary arteries. Maximal intensity projection images were also obtained. A dose lowering technique was utilized adhering to the principles of ALARA. COMPARISON STUDY: Chest CTA 08/09/2018. FINDINGS: Normal caliber thoracic aorta. There is no contrast within the aorta to assess for a dissection. The heart is normal in size. No pleural or perica rdial effusions. Fat stranding within the left axilla without lymphadenopathy. There is also mild left supraclavicular/neck base fat stranding. Mediastinal lymph nodes measure subcentimeter in short axis diameter. No hilar lymphadenopathy. Normal esophagus. Tiny hiatus hernia. The visualized liver and spleen are unremarkable. There is a left shoulder prosthesis. No pneumothorax. The central airways are patent. Mild interlobular septal thickening, most pronounced at the lung bases. This is similar to the prior study and could be chronic or represent mild congestive change. No filling defects within the pulmonary arteries to suggest pulmonary embolus. There is a bilobed 6 mm nodule within the right lower lobe in image 104. This remains stable compared to a 2012 study and is therefore considered to be benign. IMPRESSION: 1. No evidence for pulmonary embolus. 2. No change in the interstitial thickening which is likely chronic. Mild congestive change could also have a similar appearance but is considered less likely. 3. Stable benign 6 mm nodule within the right lower lobe. 4. Mild subcutaneous fat stranding within the left neck base and left axilla. This is nonspecific but could be due to prior intervention. Clinical correlation recommended. ACT 112: Negative or not required by law. Electronically signed by: Que Negro M.D. 01/02/2020 2:06 PM Dictated: 01/02/20 1350 Transcribed: 01/02/20 1354
[2020-01-06] MEDS ORDERED: PROPOFOL IV EMULSION 10 MG/ML 20 ML VIAL IV ONE (11:45)
[2020-01-06] MEDS ORDERED: ePHEDrine sulfate 50 MG/ML SYR ONE (11:45)
[2020-01-06] MEDS ORDERED: PHENYLEPHRINE 100MCG/ML 5ML SYR ONE (11:45)
--- NOTE | 2020-01-06 11:52 | Anesthesiology Progress Note ---
Date of Service January 06, 2020 Anesthesia Post Procedure Vital Signs Vital Signs: Temp Pulse Pulse Resp BP BP Pulse Ox 01/06/20 11:40 59 L 18 108/51 L 94 01/06/20 11:30 53 L 18 72/29 L 93 01/06/20 11:20 55 L 18 94/46 L 99 01/06/20 10:39 147 H 18 157/107 H 95 01/06/20 07:15 37.3 C 89 20 129/77 96 01/06/20 05:00 77 111/76 01/06/20 03:41 36.7 C 74 18 130/77 96 01/06/20 00:00 135 H 01/05/20 23:55 36.4 C L 67 18 98/63 L 94 01/05/20 19:02 37.0 C 88 18 109/65 94 01/05/20 16:12 87 01/05/20 15:14 36.9 C 69 18 114/73 96 Transfer of Care Handoff Completed per policy Notes Mental Status: alert / awake / arousable Patient Amnestic to Procedure: Yes Nausea / Vomiting: adequately controlled Pain: adequately controlled Airway Patency, RR, SpO2: stable & adequate BP & HR: stable & adequate Hydration State: stable & adequate Anesthetic Complications: no major complications apparent and Pt Satisfied with anesthetic care Notes: The patient is awake and her vitals are stable.
--- NOTE | 2020-01-06 12:00 | Cardioversion ---
Date of Service January 06, 2020 PG Electrical Cardioversion Rp Electrical Cardioversion Report Date of procedure: January 06, 2020 Procedure: SATYA directed electrical cardioversion Protocol: After informed consent and a time-out performed, the patient was sedated smoothly by Dr. Mariee. The patient was monitored continuously by telemetry, and tidal CO2, pulse oximetry, and sphygmomanometry. A transesophageal echocardiogram revealed no evidence of left atrial or left atrial appendage thrombus. The SATYA probe was removed without difficulty. The patient was then given 100 J of synchronized biphasic energy via hands off paddles. The patient successfully converted to sinus rhythm. Following the procedure, the patient was hemodynamically stable without complaints. There were no complications. Conclusions: 1. No intra-atrial thrombus by SATYA. 2. Successful cardioversion to sinus rhythm. 3. No complications. Coding Level of Care Code Cardioversion, elective Additional Codes Electrical Cardioversion Report ([id number])
--- NOTE | 2020-01-06 12:08 | Hospitalist Progress Note ---
Date of Service January 06, 2020 Assessment & Plan (1) Atrial fibrillation with RVR: - Newly diagnosed A. fib with RVR -- may have been occurring at home but rate controlled. - CTA negative for PE, showed chronic stable interstitial thickening. - Echo with EF 40-45%, mild global hypokinesis and moderate LVH. - Continue Heparin drip; plan to d/c on Eliquis 5 mg BID this evening, will be $33 per month. CHADSVASC-3. - Received increased dose of Lopressor and Digoxin with no improvement; required SATYA/cardioversion this morning by cardiology, now in NSR on monitor. - Cardio following, will start Amiodarone 200 mg BID and d/c Digoxin/Metoprolol. (2) HLD (hyperlipidemia): - Continue Simvastatin 20 mg qhs. (3) Hypothyroidism: - Continue levothyroxine 125 mcg daily - TSH is 1.08. (4) Hypoxia: - Hypoxic on admission, possibly related to pulm edema. - Received Lasix with improvement; will hold further doses. - Currently stable on room air. (5) Acute pulmonary edema: - Possible acute pulmonary edema, POA -- now resolved. See above. (6) Pulmonary nodule: - Noted: stable 6mm RLL on CTA. Follow up as outpt. (7) Constipation: - Continue Metamucil, Colace. (8) DVT prophylaxis: - Heparin drip; convert to NOAC this evening. Dispo: From the [facility] at [facility]. Continue to monitor s/p cardioversion - possible discharge this evening vs. tomorrow. Subjective HR on monitor: A fib, ranging from 100-150's on monitor over last 24 hours. S/p cardioversion by cardiology this morning, now in NSR. Will continue to monitor over next few hours. Review of Systems Review of Systems: All systems reviewed & are unremarkable except as noted in HPI & below Constitutional: no fever, no chills, no fatigue and no weakness Respiratory: no cough, no dyspnea and no dyspnea on exertion Cardiovascular: no chest pain and no edema Gastrointestinal: no abdominal pain, no nausea and no constipation Genitourinary: no difficulty urinating Musculoskeletal: no back pain and no joint pain Physical Exam Physical Exam: General: Resting comfortably HEENT: NC/AT; PERRLA with EOMI; [place] conjunctiva, MMM. No erythema of posterior pharynx Neck: Supple and nontender Cardiac: Irregular, tachycardic Lungs: CTA bilaterally; No rhonchi, wheezing, or rales Abdomen: Bowel normoactive X 4; Nontender to palpation Extremities: Warm. No edema present Neuro: No focal weakness Skin: No rash Results & Data ([facility]) Vital Signs (Past 12 Hours) Vital Signs Temp Pulse Resp BP BP Pulse Ox 01/06/20 11:40 59 L 18 108/51 L 94 01/06/20 11:30 53 L 18 72/29 L 93 01/06/20 11:20 55 L 18 94/46 L 99 01/06/20 10:39 147 H 18 157/107 H 95 01/06/20 07:15 37.3 C 89 20 129/77 96 01/06/20 05:00 77 111/76 01/06/20 03:41 36.7 C 74 18 130/77 96 Laboratory Results 01/06/20 01/06/20 01/06/20 Range/Units 06:48 06:48 06:48 WBC 10.70 (4.8-10.8) K/uL RBC 4.17 L (4.2-5.4) M/uL Hgb 13.1 (12.0-16.0) g/dL Hct 39.6 (37-47) % MCV 95.0 (80-100) fL MCH 31.4 (25-34) pg MCHC 33.1 (32-36) g/dL RDW Std Deviation 47.9 H (36.4-46.3) fL RDW Coeff of Power 13.9 (11.5-14.5) % Plt Count 267 (130-400) K/uL MPV 11.6 H (7.4-10.4) fL APTT 80.2 H* (21.0-31.0) Seconds PTT Ratio 3.0 Sodium 138 (136-145) mmol/L Potassium 3.8 (3.5-5.1) mmol/L Chloride 104 (98-107) mmol/L Carbon Dioxide 27 (21-32) mmol/L Anion Gap 6.0 (3-11) BUN 17 (7-18) mg/dl Creatinine 1.01 (0.6-1.2) mg/dl Est Cr Clr Drug Dosing 46.4 ml/min Est GFR ( Amer) 58.0 Est GFR (Non-Af Amer) 50.0 BUN/Creatinine Ratio 16.3 (10-20) Glucose 112 H (70-99) mg/dl Calcium 9.6 (8.5-10.1) mg/dl Magnesium 2.0 (1.8-2.4) mg/dl PG Care Time/CCT Total # of Minutes Spent Total Time Spent with Patient: Total time spent is greater than 50% in coordination of care (as documented) at patient's floor/unit and/or counseling patient: Coding Level of Care Code 48333 Subseq Hosp Care Lvl 3 Diagnoses Atrial fibrillation with RVR I48.91 HLD (hyperlipidemia) E78.5 Hypothyroidism E03.9 Hypoxia R09.02 Acute pulmonary edema J81.0 Pulmonary nodule R91.1 Constipation K59.00 DVT prophylaxis Z29.9
--- NOTE | 2020-01-06 12:32 | XCELERA ---
[id number] \\[email or web address]\[id number]
[2020-01-06] MEDS: AMIODARONE 200 MG TAB PO SCH ×2 (13:41→21:03)
--- NOTE | 2020-01-06 14:41 | Electrocardiogram Report ---
Test Reason : Blood Pressure : / mmHG Vent. Rate : 058 BPM Atrial Rate : 058 BPM P-R Int : 158 ms QRS Dur : 092 ms QT Int : 410 ms P-R-T Axes : 062 -25 087 degrees QTc Int : 402 ms Sinus bradycardia Otherwise normal ECG When compared with ECG of 03-JAN-2020 22:16, Sinus rhythm has replaced Atrial fibrillation Vent. rate has decreased BY 54 BPM Confirmed by Kaiser Cerrato ([id number]) on 01/06/2020 2:41:12 PM Referred By: REFERRED SELF Confirmed By:Kaiser Cerrato
[2020-01-06 16:11] LABS: Partial Thromboplastin Time 54.6 Seconds (21.0-31.0)
[2020-01-06] MEDS ORDERED: Nursing to Pharmacy Communication ONE (16:37)
[2020-01-06] MEDS: SIMVASTATIN 20 MG TAB PO SCH (21:03)
[2020-01-06] MEDS: DOCUSATE SODIUM 100 MG CAP PO SCH (21:03)
[2020-01-06] MEDS: APIXABAN 5 MG TABLET PO SCH (21:04)
[2020-01-07] MEDS: LEVOTHYROXINE SODIUM 125 MCG TABLET PO SCH (06:04)
[2020-01-07 07:27] LABS: Basophils # (auto) 0.02 K/uL (0-0.2); Basophils % (auto) 0.2 %; Eosinophils # (auto) 0.21 K/uL (0-0.5); Hematocrit (blood only) 35.2 % (37-47); Hemoglobin 11.6 g/dL (12.0-16.0); Immature Granulocytes # (auto) 0.03 K/uL (0.00-0.02); Immature Granulocytes % (auto) 0.3 %; Lymphocytes # (auto) 1.85 K/uL (1.2-3.4); Lymphocytes % (auto) 17.3 %; Mean Corpuscular Hemoglobin 31.4 pg (25-34); Mean Corpuscular Volume 95.1 fL (80-100); Mean Platelet Volume 10.4 fL (7.4-10.4); Monocytes # (auto) 1.64 K/uL (0.11-0.59); Monocytes % (auto) 15.3 %; Neutrophils # (auto) 6.94 K/uL (1.4-6.5); Neutrophils % (auto) 64.9 %; Platelet Count 261 K/uL (130-400); RDW Standard Deviation 48.5 fL (36.4-46.3); White Blood Count 10.69 K/uL (4.8-10.8)
[2020-01-07 08:01] LABS: BUN Creatinine Ratio 19.8 (10-20); Creatinine Clr Calc Pharmacy 48.6 ml/min; Est GFR (African American) 61.6; Est GFR (Non-African American) 53.2; Magnesium 2.1 mg/dl (1.8-2.4); Potassium 3.9 mmol/L (3.5-5.1)
[2020-01-07] MEDS: AMIODARONE 200 MG TAB PO SCH (08:11)
[2020-01-07] MEDS: PSYLLIUM 58.6% POWDER PACKET PO SCH (08:38)
[2020-01-07] MEDS: CALCIUM 600MG + VIT D 400 IU TAB PO SCH (08:38)
[2020-01-07] MEDS: CEROVITE ADV FORMULA TAB PO SCH (08:39)
[2020-01-07] MEDS: APIXABAN 5 MG TABLET PO SCH (08:39)
[2020-01-07] MEDS: PANTOprazole 40 MG TAB PO SCH (08:39)
--- NOTE | 2020-01-07 08:40 | Anesthesiology Progress Note ---
Date of Service January 07, 2020 Anesthesia Post Procedure Vital Signs Vital Signs: Temp Pulse Pulse Pulse Resp BP BP 01/07/20 08:25 37.3 C 65 16 122/67 01/07/20 04:02 36.7 C 64 18 129/63 01/06/20 23:35 36.6 C 59 L 18 107/65 01/06/20 21:17 36.7 C 77 18 148/78 H 01/06/20 19:09 37.0 C 61 17 101/66 01/06/20 15:27 62 01/06/20 15:05 36.6 C 57 L 20 101/50 L 01/06/20 12:47 56 L 01/06/20 12:09 36.9 C 59 L 16 105/70 01/06/20 11:40 59 L 18 108/51 L 01/06/20 11:30 53 L 18 72/29 L 01/06/20 11:20 55 L 18 94/46 L 01/06/20 10:39 147 H 18 157/107 H Pulse Ox 01/07/20 08:25 95 01/07/20 04:02 96 01/06/20 23:35 95 01/06/20 21:17 92 01/06/20 19:09 93 01/06/20 15:27 01/06/20 15:05 93 01/06/20 12:47 01/06/20 12:09 93 01/06/20 11:40 94 01/06/20 11:30 93 01/06/20 11:20 99 01/06/20 10:39 95 Notes Mental Status: alert / awake / arousable and participated in evaluation Patient Amnestic to Procedure: Yes Nausea / Vomiting: adequately controlled Pain: adequately controlled Airway Patency, RR, SpO2: stable & adequate BP & HR: stable & adequate Hydration State: stable & adequate Anesthetic Complications: no major complications apparent and Pt Satisfied with anesthetic care
--- NOTE | 2020-01-07 10:48 | Cardiology Progress Note ---
Date of Service January 07, 2020 Assessment & Plan (1) Atrial fibrillation with RVR: The patient underwent a successful SATYA directed cardioversion yesterday. Would continue amiodarone 200 mg b.i.d. until seen as an outpatient. Agree with discontinuation of digoxin and beta-mello. Continue Eliquis. (2) Elevated troponin: Likely from a supply demand mismatch. (3) HLD (hyperlipidemia): Continue simvastatin. (4) Acute pulmonary edema: Resolved. Subjective The patient is resting comfortably in bed of chest pain, dyspnea, palpitations. She has access for hospital discharge. Physical Exam Physical Exam: In general this is a well-developed well-nourished white female in no acute distress. HEENT exam is negative. Neck is supple with full carotid upstrokes. There are no carotid bruits. Jugular venous pressure is flat at 90. There is no thyromegaly. Cardiovascular exam reveals a regular rhythm with distant heart sounds. No obvious murmurs. Lungs are clear without rales, rhonchi, or wheezes. Abdomen is soft and nontender without bruits. Extremities reveal intact radial artery and posterior tibial pulses bilaterally. There is trace pretibial edema. Results & Data Vital Signs (Past 12 Hours) Vital Signs Temp Pulse Pulse Resp BP BP Pulse Ox 01/07/20 09:20 37.3 C 65 64 16 129/63 122/67 95 01/07/20 08:25 37.3 C 65 16 122/67 95 01/07/20 04:02 36.7 C 64 18 129/63 96 01/06/20 23:35 36.6 C 59 L 18 107/65 95 Diagnostic Findings phototypesetting equipment monitor notes sinus rhythm with heart rates in the 50s and 60s. PG Care Time/CCT Total # of Minutes Spent Total Time Spent with Patient: Total time spent is greater than 50% in coordination of care (as documented) at patient's floor/unit and/or counseling patient: Coding Level of Care Code 47484 Subseq Hosp Care Lvl 3 Diagnoses Atrial fibrillation with RVR I48.91 Elevated troponin R79.89 HLD (hyperlipidemia) E78.5 Acute pulmonary edema J81.0
--- NOTE | 2020-01-07 14:38 | Discharge Summary ---
Date of Service January 07, 2020 Admission HPI Per Admitting Provider This is an 89-year-old female with past medical history of patient, GERD, hyperlipidemia, and vitamin D deficiency and very remote smoking history where she smoked for 10 years 1 PPD quit in 1959, who presents with acute onset of weakness, fatigue on exertion, nausea, and intermittent clamminess over the past 3 days. Patient reports it was worse today therefore her brought her to the ER. They are residents at the [facility], and follow with Dr. Fonseca. Patient is found to be in A. fib with RVR with a heart rate in the 150s, HR has trended down to the 120s with the initiation of Cardizem drip. Patient denies any chest pain or pressure, no shortness of breath. She reports having issues with constipation and takes Benefiber, stool softener, and eats 1 prunes daily to keep her bowels regular. She denies any other acute complaints. Admission Exam Per Admitting Provider General: awake, alert, no apparent distress, + obese Head: Normocephalic, atraumatic ENT: PERRL, EOMI, no pharyngeal exudate, mucous membranes moist Chest: Clear to auscultation, on room air, drops sats to 87% with talking, no adventitious breath sounds Cardiac: Irregularly irregular, tachy with HR in 120s, no murmur, no JVD, normal peripheral pulses, good capillary refill Abdominal: NABS x 4 quadrants, soft, nondistended, nontender to palpation, no rebound, guarding or tenderness Extremities: Normal inspection, no peripheral edema or erythema, calfs nontender to palpation Psych: Normal mood and affect Neuro: AAO x 3, no gross motor deficits, speech is clear, no peripheral sensory deficits Principal Diagnosis Atrial fibrillation with RVR Discharge Exam General: Resting comfortably HEENT: NC/AT; PERRLA with EOMI; [place] conjunctiva, MMM. No erythema of posterior pharynx Neck: Supple and nontender Cardiac: bradycardic, regular Lungs: CTA bilaterally; No rhonchi, wheezing, or rales Abdomen: Bowel normoactive X 4; Nontender to palpation Extremities: Warm. No edema present Neuro: No focal weakness Skin: No rash Discharge Data Allergies Allergy/AdvReac Type Severity Reaction Status Date / Time Penicillins Allergy Intermediate RASH Verified 01/02/20 12:25 adhesive Allergy Mild ADHESIVE Verified 01/02/20 12:25 TAPE-rash redness nickel Allergy Mild IRRITATION Verified 01/02/20 12:25 oxycodone AdvReac Severe SEVERE Verified 01/02/20 12:25 VOMITING Consultations 01/02/20 13:47 ED Decision to Admit Stat 01/02/20 15:39 Consult Cardiology Routine Consult Case Management - Discharge Planning Routine 01/06/20 10:04 Consult Anesthesiology Routine Consult Anesthesiology Routine Procedures Performed Operation Date: 01/06/20 11:00 Actual Procedures p Cardioversion - Kaiser Cerrato MD s Echo Transesophageal - Kaiser Cerrato MD s Echo Color Flow - Kaiser Cerrato MD s Echo Doppler Complete - Kaiser Cerrato MD Ordered Studies 01/02/20 11:17 CT angio chest PE protocol Stat Hospital Course (1) Atrial fibrillation with RVR: Newly diagnosed A. fib with RVR -- may have been occurring at home but previously rate controlled. CTA negative for PE, showed chronic stable interstitial thickening. Echo with EF 40-45%, mild global hypokinesis and moderate LVH. On Heparin drip as inpatient; converted to Eliquis 5 mg BID. CHADSVASC-3. Received increased dose of Lopressor and Digoxin with no improvement; required SATYA/cardioversion on 01/06/20 by cardiology, currently in sinus bradycardia on monitor. Cardio following, started Amiodarone 200 mg daily. D/c'ed Digoxin and Metoprolol. Pt. did have mild facial flushing on day of discharge -- ?side effect from newly prescribed Amiodarone. Will continue to monitor. (2) HLD (hyperlipidemia): Continued Simvastatin 20 mg qhs. (3) Hypothyroidism: Continued levothyroxine 125 mcg daily TSH is 1.08. (4) Hypoxia: Hypoxic on admission, possibly related to pulm edema. Received Lasix with improvement. Stable on room air; does use CPAP at night for obstructive sleep apnea. (5) Acute pulmonary edema: Possible acute pulmonary edema, POA -- now resolved. See above. (6) Pulmonary nodule: Noted: stable 6mm RLL on CTA. Follow up as outpt. (7) Constipation: Continued Metamucil, Colace. (8) DVT prophylaxis: Heparin drip; converted to NOAC on 01/06. Discharged to home on 01/07/20. Total Time Total Time Spent Total Time Spent (In Minutes): >30 minutes Total Time Includes: Examination of the Patient, Discharge Planning, Medication Reconciliation, Communication With Other Providers and Other Discharge Plan Discharge Items Patient Disposition: Home - Self-Care Reason For Visit: AFIB WITH RVR Discharge Diagnosis: Atrial Fibrillation with RVR Condition on Discharge: Good Goals: You have been hospitalized for an acute medical problem. During your stay at [facility], we have made an effort to correct the problem that brought you to the hospital while keeping you as comfortable as possible. Medications were used to bring your condition under control and your discharge instructions will include directions for any medications you should take after leaving the hospital. Please make sure you see your Primary Care Provider as part of your follow up plan. Activity: As commented below Exercise/Sports: Wait until after follow-up appointment Non-emergency contact: Primary Care Provider and Crusher Tender Call non-emergency contact if: you have any medication questions, your symptoms worsen and you have a fever Follow-up/Referrals: Flako Moon MD [Physician] - 01/28/20 12:45 pm (Please schedule f/u with cardiology in 2-3 weeks. ) Brandon Coughlin MD [Primary Care Provider] - 01/14/20 10:30 am Diet: Heart Healthy Addtl Attending Provider Instructions: 1. Atrial Fibrillation with RVR * Status post cardioversion; currently in normal sinus rhythm. * Please take Amiodarone 200 mg twice daily (until follow up with cardiology) & Eliquis 5 mg twice daily. * You will need to monitor for bleeding, including easy bruising, nose bleeds, blood in urine or stool, on blood thinners. * Please follow up with PCP in 1-2 weeks. * Please follow up with cardiology in 2-3 weeks. Pending Studies at Discharge: No Stand-Alone Forms: My [facility] Medications and DC Order Prescriptions: New Eliquis 5 mg Tablet 5 mg PO BID Qty: 60 RF: 0 amiodarone 200 mg Tablet 200 mg PO BIDM 30 Days Qty: 60 RF: 0 amiodarone 200 mg tablet 200 mg PO DAILY Qty: 90 RF: 0 Eliquis 5 mg tablet 5 mg PO BID Qty: 180 RF: 0 Continued levothyroxine 125 mcg Tablet 125 mcg PO QAM RF: 0 Multi-Day with Iron 18-400 mg-mcg Tablet 1 tab PO QAM RF: 0 simvastatin 20 mg Tablet 20 mg PO PM RF: 0 calcium carbonate-vitamin D3 [Calcium 500 With D] 500 mg(1,250mg) -400 unit Tablet 1 tab PO QAM RF: 0 docusate sodium 100 mg Tablet 100 mg PO HS RF: 0 Benefiber Sugar Free (dextrin) 3 gram/4 gram Powder 3 g PO QAM RF: 0 pantoprazole 40 mg tablet,delayed release (DR/EC) 40 mg PO QAM RF: 0 Discharge Orders: Discharge Order (Routine); Ordered 01/07/20 Ordered By: Kelly Manning Admission Data Admit Date/Time: 01/02/20 14:56 Attending Provider: Arnaldo Cormier Admit Provider: Nicolette Julian Primary Care Provider: Brandon Coughlin Other Providers: Flako Moon ; Paulo Gamez ; Heather Singh ; Asa Franklin ; Selina Franklin ; Callum Silvestre ; Elvia Jacob ; Larry Herrmann ; Shellie Vallejo ; Eric Vallejo V ; Delores Miranda ; Jhoan May ; Jennifer Alves ; Heather Kaplan ; Danish Kurtz ; Jonathan Gamez ; Naida Mariee ; Que Mariee ; Ashli Esparza ; Arnaldo Laws ; Swati Sampson ; Angi Duron ; Chica Durham ; Tasneem Holloway ; Alejo Kang ; Guanako Sood ; Anai Saucedo ; Sylvia Betts ; Nicolette Hernandez ; Dieudonne Simmons ; Lion Galicia ; Rodolfo Oden ; Ian Oden ; Braydon Fuller ; Lion Chiu ; Ruth Rivera ; Leo Torres ; Jerardo Nelson ; Eric Saul ; Mitchell Hudson ; Marecla Chisholm ; Lara Alvarez ; Josefina Berrios ; Delores Cano ; Kelly Huizar ; Rudy Carter ; Jonathan Mathew ; Unique Francisco ; Chidi Melissa ; Lachelle Cormier ; Francis Ho ; Unique Horn ; Willa Martínez ; Grey Deng ; Tabby Hernandez Other Interventions: Discharge Summary Assessment (RN) Last Done: 01/07/20 09:20 DC Date/Time DO NOT enter until pt leaves facility: 01/07/20 12:50 Supervising Physician Co-Signing Physician Notes Attending note: patient seen and examined with Kelly Manning PA-C. I agree with her discharge summary. I personally reviewed the labs and imaging findings. patient feeling well, on monitor she is in NSR in the 50-60 eating well, no chest pain, no dyspnea discussed with cardiology, ready for discharge - Atrial fibrillation: successful cardioversion continue Amiodarone, metoprolol, anticoagulation follow up with cardiology Coding Level of Care Code D/C Day Management >30 mins Diagnoses Atrial fibrillation with RVR I48.91 HLD (hyperlipidemia) E78.5 Hypothyroidism E03.9 Hypoxia R09.02 Acute pulmonary edema J81.0 Pulmonary nodule R91.1 Constipation K59.00 DVT prophylaxis Z29.9
== END 2020-01-07 12:50 | disposition home or self-care (01) | DRG 308 ==
LOC: ED 10:49 → 2S 14:56 → SUATTDRO 14:56 → 2S 15:18

== ENCOUNTER 2021-11-07 09:32 | Observation (INO) ==
[2021-11-07 11:15] LABS: Hematocrit (blood only) 33.3 % (37-47); Hemoglobin 11.1 g/dL (12.0-16.0); Mean Corpuscular Hemoglobin 31.4 pg (25-34); Mean Corpuscular Hgb Conc 33.3 g/dL (32-36); Mean Corpuscular Volume 94.1 fL (80-100); Mean Platelet Volume 9.6 fL (7.4-10.4); Platelet Count 383 K/uL (130-400); RDW Coefficient of Variation 13.9 % (11.5-14.5); RDW Standard Deviation 48.3 fL (36.4-46.3); Red Blood Count 3.54 M/uL (4.2-5.4); White Blood Count 13.34 K/uL (4.8-10.8)
[2021-11-07 11:26] LABS: Influenza A virus by PCR Negative (Neg); Influenza B virus by PCR Negative (Neg); RSV by PCR Negative (Neg); SARS CoV2 RNA(COVID-19) InHosp NEGATIVE (Negative)
[2021-11-07 11:36] LABS: Alanine Aminotransferase 28 (12-78); Albumin Level 2.8 gm/dl (3.4-5.0); Aspartate Aminotransferase 24 U/L (15-37); BUN Creatinine Ratio 15.1 (10-20); Blood Urea Nitrogen 14 mg/dl (7-18); Calcium 8.9 mg/dl (8.5-10.1); Carbon Dioxide 28 mmol/L (21-32); Chloride 96 mmol/L (98-107); Est GFR (African American) 64.8 ml/min; Est GFR (Non-African American) 55.9 ml/min; Glucose 98 mg/dl (70-99); Magnesium 2.1 mg/dl (1.8-2.4); Potassium 4.7 mmol/L (3.5-5.1); Sodium 131 mmol/L (136-145)
[2021-11-07 11:37] LABS: Basophils # (auto) 0.03 K/uL (0-0.2); Basophils % (auto) 0.2 %; Eosinophils # (auto) 0.22 K/uL (0-0.5); Eosinophils % (auto) 1.6 %; Immature Granulocytes # (auto) 0.02 K/uL (0.00-0.02); Immature Granulocytes % (auto) 0.1 %; Lymphocytes # (auto) 2.36 K/uL (1.2-3.4); Lymphocytes % (auto) 17.7 %; Monocytes # (auto) 1.43 K/uL (0.11-0.59); Monocytes % (auto) 10.7 %; Neutrophils # (auto) 9.28 K/uL (1.4-6.5); Neutrophils % (auto) 69.7 %
[2021-11-07 11:41] LABS: Albumin Globulin Ratio 0.6 (0.9-2); Alkaline Phosphatase 98 U/L (45-117); Bilirubin,Total 0.3 mg/dl (0.2-1); Globulin 5.1 gm/dl (2.5-4.0); Total Protein 7.9 gm/dl (6.4-8.2); Troponin I < 0.015 ng/ml (0-0.045)
[2021-11-07 12:13] LABS: Partial Thromboplastin Ratio 1.2; Partial Thromboplastin Time 31.9 Seconds (21.0-31.0); Prothrombin Time 10.4 Seconds (9.0-12.0)
--- NOTE | 2021-11-07 12:26 | XRay Report ---
XR chest 1V portable CLINICAL HISTORY: SOB TECHNIQUE: Single frontal radiograph of the chest was obtained. Comparison: Comparison is made to chest one view 03/25/2021 FINDINGS: No lines and tubes are seen. The cardiomediastinal silhouette is normal. There is prominence and ceph alization of the vasculature with Tam B lines seen. No evidence of pleural effusion or pneumothora x. IMPRESSION: Moderate pulmonary edema. ACT 112: Negative or not required by law. Electronically signed by: Arnaldo Bustillo M.D. 11/07/2021 12:24 PM
--- NOTE | 2021-11-07 13:26 | Emergency Department Note ---
Impression & Plan SOB (shortness of breath), Leukocytosis ED Provider Note INFORMANT: Patient and . Additional history from her primary physician Dr. Coughlin ED PROVIDER(S): Ian Argueta MD CHIEF COMPLAINT: Shortness of breath PLAN: Disposition: Admitted Condition: Good Outpatient prescription management: none Referral: None MEDICAL DECISION MAKING: Patient presented. She was hemodynamically stable. She is maintaining her oxygen saturations on room air. Chest x-ray showed some mild pulmonary edema. No focal infiltrates. White blood cell count was elevated at 13,000. Troponin was negative. ECG did not show any significant acute findings. Chemistry panel, LFTs negative. Patient is anticoagulated therefore additional work-up regarding thromboembolic disease was not performed. The patient had a negative Covid test. BNP were within normal limits. I did discuss the case with her primary physician. He noted that she was quite dyspneic, wheezing and hypoxic in the office but did seem to improve somewhat. Patient was ambulated and her saturations dropped to 85% here. At that point further management in the hospital was felt to be appropriate. Patient was treated with Rocephin, Lasix, Solu-Medrol, and DuoNeb. Consultation was made with Dr. Patrice Romero of the [facility] service. Patient was evaluated in the ER for further management. Triage Nursing notes reviewed and agree them. Vital Signs: reviewed and remarkable for no significant abnormalities Differential diagnosis: Reactive airway disease, pneumonia, pneumothorax, COPD, CHF, infections, cardiac ischemia, pulmonary embolism, musculoskeletal, gastrointestinal, as well as other pathologies. Diagnostics interpreted by me: ECG: Twelve-lead ECG reveals normal sinus rhythm 63 bpm left axis deviation. No ST elevation or depression. And normal axis and QRS. Cardiac Monitoring: Cardiac monitoring ordered by me: The patient was placed on continuous cardiac monitoring and observed. It revealed a normal sinus rhythm at 72 beats per minute without ectopy or evidence of dysrhythmia. Imaging studies: Chest x-ray reveals some mild pulmonary edema. No focal infiltrates. HPI: The patient is a 89 year old female who presents to the Emergency Room with complaints of shortness of breath. This started about 3 days and is persistent. The patient also notes the following associated symptoms, body aches, fatigue. The patient has found no relieving factors. Current pain is rated as 0/10. Patient does note occasional aches in her upper back. She also notes a productive cough of yellow sputum. She went to her PCPs office today and her oxygen saturation was below 90%. She was directed to the ER. Pt denies LOC, headache, fevers, chills, diaphoresis, visual changes, neck pain, chest pain, nausea, vomiting, abdominal pain, melena, hematochezia, urinary symptoms, numbness, weakness, lymphadenopathy, rash, or other complaints. ROS: See above HPI for pertinent positives & negatives. A total of 10 systems reviewed and were otherwise negative. PAST MEDICAL HISTORY:See Below , anticoagulated, paroxysmal A. fib PAST SURGICAL HISTORY:See Below, FAMILY HISTORY:See Below SOCIAL HISTORY:See Below, HOME MEDICATIONS:See Below ALLERGIES:See Below VITALS:See Below PHYSICAL EXAMINATION: GENERAL: Awake, alert, well-appearing, in no distress HENT: Normocephalic, atraumatic. Oropharynx unremarkable. EYES: Normal conjunctiva. Sclera non-icteric. NECK: Inspection normal. Non-tender. Supple. No nuchal rigidity. FROM. No masses. RESPIRATORY: Clear to auscultation. No wheezes. No rales. Normal respiratory effort. CARDIAC: Normal rate. Normal rhythm. No murmurs. No rubs. Extremities warm and well perfused. Pulses equal. No JVD. GI: Soft, non-distended. No tenderness to palpation. No rebound or guarding. No masses. RECTAL: Deferred. MUSCULOSKELETAL: Atraumatic. Chest examination reveals no tenderness. The back is symmetrical on inspection without obvious abnormality. There is no CVA tenderness to palpation. No joint edema. LOWER EXTREMITIES: Calves are equal size bilaterally and non-tender. No edema. No discoloration. NEURO: Normal sensorium. No sensory or motor deficits noted. SKIN: No rash or jaundice noted. Ian Argueta MD Past Med/Surg History Medical History Anticoagulant long-term use Atrial fibrillation with rapid ventricular response Cardiomyopathy DJD of shoulder GERD (gastroesophageal reflux disease) Hemorrhoid Hyperlipidemia Hypothyroidism Lower GI bleed On amiodarone therapy Paroxysmal atrial fibrillation Sleep apnea Surgical History History of back surgery History of knee replacement History of shoulder replacement History of thyroidectomy History of total hip replacement Family History Father Myocardial infarction Heart disease Cancer Mother Heart disease Brother Heart disease Allergies Other No family history of bleeding disorder Denies family history of Diabetes 1.5, managed as type 1 Hearing loss Hypertension Stroke Asthma Social History Smoking Status: Never smoker Tobacco Type: Cigarettes packs per day: 1; Years Smoked: 10; Number of Years Since Quit: 61; Second Hand Exposure: No; Hx Alcohol Use: No Hx Substance Use: No Preferred Language: Chinese Communication Ability: Effective 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 Beliefs That Will Affect Care: None marital status: Current Living Situation: Spouse current occupational status: retired Feels Safe at Home: Yes Assistive Devices: None Allergies Allergies Allergy/AdvReac Type Severity Reaction Status Date / Time Penicillins Allergy Intermediate RASH Verified 11/07/21 12:24 adhesive Allergy Mild ADHESIVE Verified 11/07/21 12:24 TAPE-rash redness nickel Allergy Mild IRRITATION Verified 11/07/21 12:24 oxycodone AdvReac Severe SEVERE Verified 11/07/21 12:24 VOMITING tetracycline AdvReac Intermediate flushed Unverified 11/07/21 12:24 face ~ felt funny Home Meds Home Medications Medication Instructions Recorded Confirmed calcium carbonate 500 mg-vitamin 1 tab PO HS 08/09/18 11/07/21 D3 10 mcg (400 unit) tablet (Calcium 500 With D) levothyroxine 125 mcg tablet 125 mcg PO DAILYBB 08/09/18 11/07/21 multivitamin-ferrous 1 tab PO QAM 08/09/18 11/07/21 fumarate-folic acid 18 mg-400 mcg tablet (Multi-Day with Iron) simvastatin 20 mg tablet 20 mg PO HS 08/09/18 11/07/21 docusate sodium 100 mg tablet 100 mg PO HS 01/02/20 11/07/21 pantoprazole 40 mg tablet,delayed 40 mg PO QAM 01/02/20 11/07/21 release wheat dextrin 3 gram/4 gram oral 3 g PO QAM 01/02/20 11/07/21 powder (Benefiber Sugar Free (dextrin)) Previous Rx's Medication Instructions Recorded amiodarone 200 mg tablet 200 mg PO QAM #90 tab 04/24/21 apixaban 5 mg tablet (Eliquis) 5 mg PO BID #180 tab 04/24/21 Results & Data (ED) Vital Signs Vital Signs - 24 hr 11/07/21 09:39 11/07/21 10:38 11/07/21 10:39 Temperature 36.6 C Temperature Source Skin Pulse Rate 69 Pulse Rate [Apical] 64 Pulse Rate from SpO2 Sensor Pulse Rhythm [Apical] Regular Pulse Strength [Apical] Normal Respiratory Rate 18 16 16 Respiratory Effort / Characteristics Non-Labored Spontaneous Non-Labored Spontaneous Respiratory Depth Normal Respiratory Pattern Blood Pressure 169/67 H Blood Pressure [Right Arm] 179/94 H Blood Pressure Mean 101 Blood Pressure Mean [Right Arm] 122 Blood Pressure Position [Right Arm] Sitting Pulse Oximetry 95 94 94 Pulse Oximetry [Exercises] Pulse Oximetry [Recovery] Pulse Oximetry [Resting] Oxygen Delivery Method Room Air Room Air Room Air Oxygen Flow Rate Sepsis Recent Fever Within 48 Hours No Sepsis New/Unexplained Change in Mental Status No Sepsis Action Taken by Nursing No Action Required 11/07/21 10:43 11/07/21 11:00 11/07/21 11:30 Temperature Temperature Source Pulse Rate 61 62 60 Pulse Rate [Apical] Pulse Rate from SpO2 Sensor 60 60 61 Pulse Rhythm [Apical] Pulse Strength [Apical] Respiratory Rate 15 16 17 Respiratory Effort / Characteristics Respiratory Depth Respiratory Pattern Blood Pressure Blood Pressure [Right Arm] Blood Pressure Mean Blood Pressure Mean [Right Arm] Blood Pressure Position [Right Arm] Pulse Oximetry 94 95 96 Pulse Oximetry [Exercises] Pulse Oximetry [Recovery] Pulse Oximetry [Resting] Oxygen Delivery Method Oxygen Flow Rate Sepsis Recent Fever Within 48 Hours Sepsis New/Unexplained Change in Mental Status Sepsis Action Taken by Nursing 11/07/21 12:00 11/07/21 12:55 11/07/21 15:00 Temperature Temperature Source Pulse Rate 69 Pulse Rate [Apical] 62 Pulse Rate from SpO2 Sensor 69 Pulse Rhythm [Apical] Regular Pulse Strength [Apical] Normal Respiratory Rate 24 16 Respiratory Effort / Characteristics Non-Labored Spontaneous Respiratory Depth Normal Respiratory Pattern Blood Pressure Blood Pressure [Right Arm] 160/76 H Blood Pressure Mean Blood Pressure Mean [Right Arm] 104 Blood Pressure Position [Right Arm] Sitting Pulse Oximetry 95 94 Pulse Oximetry [Exercises] 85 L Pulse Oximetry [Recovery] 96 Pulse Oximetry [Resting] 92 Oxygen Delivery Method Room Air Room Air Oxygen Flow Rate Sepsis Recent Fever Within 48 Hours Sepsis New/Unexplained Change in Mental Status Sepsis Action Taken by Nursing 11/07/21 15:03 11/07/21 15:28 11/07/21 16:45 Temperature 38.2 C H Temperature Source Oral Pulse Rate Pulse Rate [Apical] 68 72 Pulse Rate from SpO2 Sensor Pulse Rhythm [Apical] Regular Regular Pulse Strength [Apical] Normal Normal Respiratory Rate 16 19 Respiratory Effort / Characteristics Non-Labored Spontaneous Non-Labored Spontaneous Respiratory Depth Normal Normal Respiratory Pattern Regular Regular Blood Pressure Blood Pressure [Right Arm] 151/63 H 126/50 L Blood Pressure Mean Blood Pressure Mean [Right Arm] 92 75 Blood Pressure Position [Right Arm] Sitting Semi-fowlers Pulse Oximetry 93 95 94 Pulse Oximetry [Exercises] Pulse Oximetry [Recovery] Pulse Oximetry [Resting] Oxygen Delivery Method Room Air Room Air Room Air Oxygen Flow Rate 0 Sepsis Recent Fever Within 48 Hours Sepsis New/Unexplained Change in Mental Status Sepsis Action Taken by Nursing Laboratory Data Result diagrams: 11/07/21 11:05 11/07/21 11:05 Lab Results 11/07/21 11/07/21 11/07/21 Range/Units 10:40 11:05 11:05 WBC 13.34 H (4.8-10.8) K/uL RBC 3.54 L (4.2-5.4) M/uL Hgb 11.1 L (12.0-16.0) g/dL Hct 33.3 L (37-47) % MCV 94.1 (80-100) fL MCH 31.4 (25-34) pg MCHC 33.3 (32-36) g/dL RDW Std Deviation 48.3 H (36.4-46.3) fL RDW Coeff of Power 13.9 (11.5-14.5) % Plt Count 383 (130-400) K/uL MPV 9.6 (7.4-10.4) fL Immature Gran % (Auto) 0.1 % Neut % (Auto) 69.7 % Lymph % (Auto) 17.7 % [place] % (Auto) 10.7 % Eos % (Auto) 1.6 % Baso % (Auto) 0.2 % Neut # (Auto) 9.28 H (1.4-6.5) K/uL Lymph # (Auto) 2.36 (1.2-3.4) K/uL [place] # (Auto) 1.43 H (0.11-0.59) K/uL Eos # (Auto) 0.22 (0-0.5) K/uL Baso # (Auto) 0.03 (0-0.2) K/uL Immature Gran # (Auto) 0.02 (0.00-0.02) K/uL PT Cancelled INR Cancelled APTT Cancelled PTT Ratio Cancelled Sodium (136-145) mmol/L Potassium (3.5-5.1) mmol/L Chloride (98-107) mmol/L Carbon Dioxide (21-32) mmol/L Anion Gap (3-11) BUN (7-18) mg/dl Creatinine (0.6-1.2) mg/dl Est Cr Clr Drug Dosing ml/min Est GFR ( Amer) ml/min Est GFR (Non-Af Amer) ml/min BUN/Creatinine Ratio (10-20) Glucose (70-99) mg/dl Calcium (8.5-10.1) mg/dl Magnesium (1.8-2.4) mg/dl Total Bilirubin (0.2-1) mg/dl AST (15-37) U/L ALT (12-78) Alkaline Phosphatase (45-117) U/L Troponin I (0-0.045) ng/ml NT-Pro-B Natriuret Pep (0-1800) pg/ml Total Protein (6.4-8.2) gm/dl Albumin (3.4-5.0) gm/dl Globulin (2.5-4.0) gm/dl Albumin/Globulin Ratio (0.9-2) SARS-CoV-2 (PCR) NEGATIVE (Negative) Influenza Type A (PCR) Negative (Neg) Influenza Type B (PCR) Negative (Neg) RSV (RT-PCR) Negative (Neg) 11/07/21 11/07/21 11/07/21 Range/Units 11:05 11:05 11:50 WBC (4.8-10.8) K/uL RBC (4.2-5.4) M/uL Hgb (12.0-16.0) g/dL Hct (37-47) % MCV (80-100) fL MCH (25-34) pg MCHC (32-36) g/dL RDW Std Deviation (36.4-46.3) fL RDW Coeff of Power (11.5-14.5) % Plt Count (130-400) K/uL MPV (7.4-10.4) fL Immature Gran % (Auto) % Neut % (Auto) % Lymph % (Auto) % [place] % (Auto) % Eos % (Auto) % Baso % (Auto) % Neut # (Auto) (1.4-6.5) K/uL Lymph # (Auto) (1.2-3.4) K/uL [place] # (Auto) (0.11-0.59) K/uL Eos # (Auto) (0-0.5) K/uL Baso # (Auto) (0-0.2) K/uL Immature Gran # (Auto) (0.00-0.02) K/uL PT 10.4 INR 1.0 APTT 31.9 H PTT Ratio 1.2 Sodium 131 L (136-145) mmol/L Potassium 4.7 (3.5-5.1) mmol/L Chloride 96 L (98-107) mmol/L Carbon Dioxide 28 (21-32) mmol/L Anion Gap 7.0 (3-11) BUN 14 (7-18) mg/dl Creatinine 0.91 (0.6-1.2) mg/dl Est Cr Clr Drug Dosing 49.0 ml/min Est GFR ( Amer) 64.8 ml/min Est GFR (Non-Af Amer) 55.9 ml/min BUN/Creatinine Ratio 15.1 (10-20) Glucose 98 (70-99) mg/dl Calcium 8.9 (8.5-10.1) mg/dl Magnesium 2.1 (1.8-2.4) mg/dl Total Bilirubin 0.3 (0.2-1) mg/dl AST 24 (15-37) U/L ALT 28 (12-78) Alkaline Phosphatase 98 (45-117) U/L Troponin I < 0.015 (0-0.045) ng/ml NT-Pro-B Natriuret Pep 1030 (0-1800) pg/ml Total Protein 7.9 (6.4-8.2) gm/dl Albumin 2.8 L (3.4-5.0) gm/dl Globulin 5.1 H (2.5-4.0) gm/dl Albumin/Globulin Ratio 0.6 L (0.9-2) SARS-CoV-2 (PCR) (Negative) Influenza Type A (PCR) (Neg) Influenza Type B (PCR) (Neg) RSV (RT-PCR) (Neg) Administered Medications Discontinued Medications Albuterol (Albut/Ipratrop 3mg/0.5mg Neb 3 Ml Vial) 3 ml NEB NOW STA Stop: 11/07/21 15:52 Last Admin: 11/07/21 16:14 Dose: 3 ml Documented by: [id number] Furosemide (Furosemide Inj 20 Mg/2 Ml Vial) 20 mg IV ONE ONE Stop: 11/07/21 15:52 Last Admin: 11/07/21 16:03 Dose: 20 mg Documented by: [id number] Methylprednisolone (Methylprednisolone 125 Mg/2 Ml Vial) 125 mg IV NOW STA Stop: 11/07/21 15:52 Last Admin: 11/07/21 16:07 Dose: 125 mg Documented by: [id number] Imaging Data Radiologist's Impression: Chest X-Ray 11/07/21 09:43 XR chest 1V portable CLINICAL HISTORY: SOB TECHNIQUE: Single frontal radiograph of the chest was obtained. Comparison: Comparison is made to chest one view 03/25/2021 FINDINGS: No lines and tubes are seen. The cardiomediastinal silhouette is normal. There is prominence and cephalization of the vasculature with Tam B lines seen. No evidence of pleural effusion or pneumothorax. IMPRESSION: Moderate pulmonary edema. ACT 112: Negative or not required by law. Electronically signed by: Arnaldo Bustillo M.D. 11/07/2021 12:24 PM Discharge Plan Visit Data Chief Complaint: Shortness of Breath/Dyspnea Stated Complaint: SOB/ACHY ED Provider: Ian Argueta Discharge Problem: SOB (shortness of breath), Leukocytosis
[2021-11-07] MEDS ORDERED: DOXYCYCLINE HYCLATE 100 MG in DEXTROSE 5% 100 ML IV STA (15:51)
[2021-11-07] MEDS ORDERED: ALBUT/IPRATROP 3MG/0.5MG NEB 3 ML VIAL NEB STA (15:51)
[2021-11-07] MEDS ORDERED: FUROSEMIDE INJ 20 MG/2 ML VIAL IV ONE (15:51)
[2021-11-07] MEDS ORDERED: methylPREDNISolone 125 MG/2 ML VIAL IV STA (15:51)
--- NOTE | 2021-11-07 16:36 | Electrocardiogram Report ---
Test Reason : Blood Pressure : / mmHG Vent. Rate : 062 BPM Atrial Rate : 062 BPM P-R Int : 160 ms QRS Dur : 104 ms QT Int : 418 ms P-R-T Axes : 065 -59 089 degrees QTc Int : 424 ms Normal sinus rhythm Left axis deviation Abnormal ECG When compared with ECG of 25-MAR-2021 11:54, No significant change was found Confirmed by Kaiser Cerrato ([id number]) on 11/07/2021 4:36:19 PM Referred By: Confirmed By:Kaiser Cerrato
--- NOTE | 2021-11-07 17:04 | History & Physical Report ---
Date of Service November 07, 2021 Assessment & Plan (1) Community acquired pneumonia: Plan: Procalcitonin negative however Suspect RLL opacity on CXR is pneumonia from my interpretation along with history and WBC appears to be much more consistent with PNA rather than CHF. Ceftriaxone given in ER. Will continue this and add azithromycin. (2) Acute heart failure with preserved ejection fraction: Plan: Low Na, heart healthy diet, fluid restrict 1500ml BNP WNL however raised from her prior baseline Lasix 20mg IV given in ER with patient reported good diuresis effect, will continue this daily TTE I&Os Daily weights (3) SOB (shortness of breath): Plan: As above, suspect combination of CAP and CHF (4) Hypoxia: Plan: Mainly on exertion Secondary to CHF and CAP above. No indication for further steroids although will use duonebs PRN since she noted an improvement on this in the ER Aim O2 sats > 90%. Consider 2 step prior to discharge (5) Paroxysmal atrial fibrillation: Plan: Currently in NSR Monitor on telemetry Anticoagulation with Eliquis Rhythm control with amiodarone (6) GERD (gastroesophageal reflux disease): Plan: Continue pantoprazole 40mg PO daily (7) Sleep apnea: Plan: CPAP HS, may use her own if her brings it in. (8) Hypothyroidism: Plan: TSH WNL in August, no need to repeat Continue levothyroxine 125 mcg PO daily (9) HLD (hyperlipidemia): Plan: Continue simvastatin 20mg PO daily Plan: VTE Prophylaxis - Eliquis Diet - Low Na, heart healthy, fluid restrict 1500ml Disposition - observation status to med/tele Admission and Anticipated Discharge Date Admission Date: November 07, 2021 History of Present Illness Chief Complaint: Shortness of breath, fever Primary Care Provider: Brandon Coughlin MD Grayce [employer] is an 89 year old female who lives at the [facility] at [facility] in independent living who presents to the ER on the advice of her PCP (Dr Coughlin) due to shortness of breath and hypoxia on exertion. Reportedly she was wheezing in the office and very short of breath. Difficult to get a good history timeline from the patient as she is vague when her symptoms seem to have started. She reports generally short of breath all the time since the start of the pandemic which she puts down to deconditioning. However when directly asking about Dr Coughlin's concern she is worse than usual she does report this may be worse over the last few days with associated chills. No cough. She denies choking/coughing on any food. She denies any chest pain, claudication, orthopnea, PND or palpations. In the ER here she desaturates to 85% on room air on exertion. She was given duonebs and solu-medrol for her wheezing although she denies any history of asthma or COPD. However she does report improvement in her symptoms with the duoneb. She was given ceftriaxone to cover for bacterial pneumonia/bronchitis. She was given Lasix 20mg IV which she reports is already making her urinate due to concern for pulmonary edema. Allergies Allergy/AdvReac Type Severity Reaction Status Date / Time Penicillins Allergy Intermediate RASH Verified 11/07/21 12:24 adhesive Allergy Mild ADHESIVE Verified 11/07/21 12:24 TAPE-rash redness nickel Allergy Mild IRRITATION Verified 11/07/21 12:24 oxycodone AdvReac Severe SEVERE Verified 11/07/21 12:24 VOMITING tetracycline AdvReac Intermediate flushed Unverified 11/07/21 12:24 face ~ felt funny Home Medications Medication Instructions Recorded Confirmed Type calcium carbonate 500 mg-vitamin 1 tab PO HS 08/09/18 11/07/21 History D3 10 mcg (400 unit) tablet (Calcium 500 With D) levothyroxine 125 mcg tablet 125 mcg PO DAILYBB 08/09/18 11/07/21 History multivitamin-ferrous 1 tab PO QAM 08/09/18 11/07/21 History fumarate-folic acid 18 mg-400 mcg tablet (Multi-Day with Iron) simvastatin 20 mg tablet 20 mg PO HS 08/09/18 11/07/21 History docusate sodium 100 mg tablet 100 mg PO HS 01/02/20 11/07/21 History pantoprazole 40 mg tablet,delayed 40 mg PO QAM 01/02/20 11/07/21 History release wheat dextrin 3 gram/4 gram oral 3 g PO QAM 01/02/20 11/07/21 History powder (Benefiber Sugar Free (dextrin)) amiodarone 200 mg tablet 200 mg PO QAM #90 tab 04/24/21 11/07/21 Rx apixaban 5 mg tablet (Eliquis) 5 mg PO BID #180 tab 04/24/21 11/07/21 Rx Past Med/Surg History Medical History Anticoagulant long-term use Atrial fibrillation with rapid ventricular response Cardiomyopathy DJD of shoulder GERD (gastroesophageal reflux disease) Hemorrhoid Hyperlipidemia Hypothyroidism Lower GI bleed On amiodarone therapy Paroxysmal atrial fibrillation Sleep apnea Surgical History History of back surgery History of knee replacement History of shoulder replacement History of thyroidectomy History of total hip replacement Family History Father Myocardial infarction Heart disease Cancer Mother Heart disease Brother Heart disease Allergies Other No family history of bleeding disorder Denies family history of Diabetes 1.5, managed as type 1 Hearing loss Hypertension Stroke Asthma Social History Smoking Status: Former smoker Tobacco Type: Cigarettes packs per day: 1; Years Smoked: 10; Number of Years Since Quit: 61; Second Hand Exposure: No; Do You Dip or Chew Tobacco: No; Tobacco Cessation Education Requested by Patient: No Hx Alcohol Use: No Hx Substance Use: No Preferred Language: Gibraltarian Communication Ability: Effective Business Advisor Required: No Beliefs That Will Affect Care: [facility] marital status: Current Living Situation: Spouse current occupational status: retired Other Information That Helps Us Care for You: No Feels Safe at Home: Yes Safety Concerns: Feels Safe At This Time Assistive Devices: None Review of Systems Review of Systems: All systems reviewed & are unremarkable except as noted in HPI & below Physical Exam Constitutional: WD/WN, vitals as above Eyes: + anicteric sclerae; normal pupil size ENMT: external ear and nose normal, oropharynx normal Respiratory: normal respiratory effort; no respiratory distress Auscultation: + diminished lung sounds (bibasal) and + crackles (right base); no rales, no rhonchi and no wheezes Cardiovascular: Rate/Rhythm: regular rate and regular rhythm Heart Sounds: no murmur Extremities: normal capillary refill and + pedal edema (trace pre- tibial b/l equal); no calf tenderness Gastrointestinal (Abdomen): normal bowel sounds, soft, nontender, no hepatosplenomegaly Musculoskeletal: no cyanosis or clubbing, extremities motor strength 5/5 Skin: no rashes, warm and dry Neurologic: moves all extremities and awake; not confused Psychiatric: A+Ox3, euthymic affect Results & Data Results & Data ([facility]) Vital Signs (Past 12 Hours) Vital Signs Temp Pulse Pulse Resp BP BP Pulse Ox 11/07/21 16:45 38.2 C H 72 19 126/50 L 94 11/07/21 15:28 95 11/07/21 15:03 68 16 151/63 H 93 11/07/21 15:00 11/07/21 12:55 62 16 160/76 H 94 11/07/21 12:00 69 24 95 11/07/21 11:30 60 17 96 11/07/21 11:00 62 16 95 11/07/21 10:43 61 15 94 11/07/21 10:39 16 94 11/07/21 10:38 64 16 179/94 H 94 11/07/21 09:39 36.6 C 69 18 169/67 H 95 Pulse Ox Pulse Ox Pulse Ox 11/07/21 16:45 11/07/21 15:28 11/07/21 15:03 11/07/21 15:00 85 L 96 92 11/07/21 12:55 11/07/21 12:00 11/07/21 11:30 11/07/21 11:00 11/07/21 10:43 11/07/21 10:39 11/07/21 10:38 11/07/21 09:39 Diagnostic Findings XR chest 1V portable CLINICAL HISTORY: SOB TECHNIQUE: Single frontal radiograph of the chest was obtained. Comparison: Comparison is made to chest one view 03/25/2021 FINDINGS: No lines and tubes are seen. The cardiomediastinal silhouette is normal. There is prominence and cephalization of the vasculature with Tam B lines seen. No evidence of pleural effusion or pneumothorax. IMPRESSION: Moderate pulmonary edema. Medications Administered ER Medications Given: Methylprednisolone 125mg IV Furosemide 20mg IV Duoneb 3ml NEB Ceftriaxone 2g IV ECG Indication: chest pain Rate (beats per minute): 62 Rhythm: normal sinus Findings: + left axis deviation Comparison ECG Date: from (March 25, 2021) Change: no significant change Code Status & VTE Plan Code Status DNR in setting of cardiac arrest, all other treatment outside of a cardiac arrest VTE Prophylaxis Plan VTE Prophylaxis will be ordered: Yes PG Care Time/CCT Total # of Minutes Spent Total Time Spent with Patient: Total time spent is greater than 50% in coordination of care (as documented) at patient's floor/unit and/or counseling patient: Coding Level of Care Code INT OBSERVATION CARE 70M LVL 3 Diagnoses Acute heart failure with preserved ejection fraction I50.31 Paroxysmal atrial fibrillation I48.0 SOB (shortness of breath) R06.02 Hypoxia R09.02 GERD (gastroesophageal reflux disease) K21.9 Sleep apnea G47.30 Community acquired pneumonia J18.9 Hypothyroidism E03.9 HLD (hyperlipidemia) E78.5
[2021-11-07] MEDS ORDERED: cefTRIAXone SODIUM 2,000 MG/70 ML BAG IV STA (17:17)
[2021-11-07] MEDS ORDERED: POLYETHYLENE (MIRALAX) 17 GM PACK PO PRN (18:08)
[2021-11-07] MEDS ORDERED: ONDANSETRON INJ 2 MG/ML 2 ML VIAL IV PRN (18:08)
[2021-11-07] MEDS ORDERED: ALUMINUM/MAGNESIUM SUSP 30 ML UDC PO PRN (18:08)
[2021-11-07] MEDS ORDERED: ACETAMINOPHEN 325 MG TAB PO PRN (18:08)
[2021-11-07] MEDS: APIXABAN 5 MG TABLET PO SCH (20:32)
[2021-11-07 20:50] LABS: Appearance Urine Clear (Clear); Bilirubin Urine Negative (Negative); Blood Urine Negative (Negative); Color Urine Yellow; Glucose Urine UA Negative (Negative); Ketones Urine Negative (Negative); Leukocyte Esterase Urine Negative (Negative); Nitrite Urine Negative (Negative); Protein Urine Negative (Negative); Specific Gravity Urine 1.009 (1.000-1.030); Urobilinogen Urine Negative (Negative)
[2021-11-07] MEDS ORDERED: AZITHROMYCIN 250 MG TAB PO STA (20:59)
[2021-11-07] MEDS ORDERED: SIMVASTATIN 20 MG TAB PO SCH (21:00)
[2021-11-07] MEDS ORDERED: DOCUSATE SODIUM 100 MG CAP PO SCH (21:00)
[2021-11-07] MEDS ORDERED: CALCIUM 600MG + VIT D 400 IU TAB PO SCH (21:00)
[2021-11-07] MEDS ORDERED: ALBUT/IPRATROP 3MG/0.5MG NEB 3 ML VIAL NEB PRN (21:03)
[2021-11-08] MEDS ORDERED: MELATONIN 3 MG TAB PO PRN (02:17)
[2021-11-08 06:00] LABS: Basophils # (auto) 0.01 K/uL (0-0.2); Basophils % (auto) 0.1 %; Hematocrit (blood only) 34.5 % (37-47); Hemoglobin 11.5 g/dL (12.0-16.0); Immature Granulocytes # (auto) 0.03 K/uL (0.00-0.02); Immature Granulocytes % (auto) 0.3 %; Lymphocytes # (auto) 0.63 K/uL (1.2-3.4); Lymphocytes % (auto) 6.6 %; Mean Corpuscular Hemoglobin 30.7 pg (25-34); Mean Corpuscular Hgb Conc 33.3 g/dL (32-36); Mean Corpuscular Volume 92.2 fL (80-100); Mean Platelet Volume 9.8 fL (7.4-10.4); Monocytes # (auto) 0.19 K/uL (0.11-0.59); Neutrophils # (auto) 8.68 K/uL (1.4-6.5); Platelet Count 403 K/uL (130-400); RDW Coefficient of Variation 13.8 % (11.5-14.5); RDW Standard Deviation 46.8 fL (36.4-46.3); Red Blood Count 3.74 M/uL (4.2-5.4); White Blood Count 9.54 K/uL (4.8-10.8)
[2021-11-08] MEDS ORDERED: LEVOTHYROXINE SODIUM 125 MCG TABLET PO SCH (06:30)
[2021-11-08 06:36] LABS: BUN Creatinine Ratio 16.5 (10-20); Calcium 9.4 mg/dl (8.5-10.1); Creatinine Clr Calc Pharmacy 49.2 ml/min; Est GFR (African American) 65.7 ml/min; Est GFR (Non-African American) 56.7 ml/min; Potassium 4.2 mmol/L (3.5-5.1)
[2021-11-08] MEDS ORDERED: [UNRECOGNIZED DRUG - OTHER] PO SCH (09:00)
[2021-11-08] MEDS ORDERED: PANTOprazole 40 MG TAB PO SCH (09:00)
[2021-11-08] MEDS ORDERED: AMIODARONE 200 MG TAB PO SCH (09:00)
[2021-11-08] MEDS ORDERED: FUROSEMIDE INJ 20 MG/2 ML VIAL IV SCH (09:00)
[2021-11-08] MEDS ORDERED: CEROVITE ADV FORMULA TAB PO SCH (09:00)
[2021-11-08] MEDS ORDERED: WHEAT DEXTRIN PO SCH (09:00)
[2021-11-08] MEDS ORDERED: DOXYCYCLINE HYCLATE 100 MG CAP PO SCH (09:00)
[2021-11-08] MEDS: APIXABAN 5 MG TABLET PO SCH (09:10)
--- NOTE | 2021-11-08 14:31 | XCELERA ---
[id number]
--- NOTE | 2021-11-08 14:43 | Discharge Summary ---
Date of Service November 08, 2021 Admission HPI Per Admitting Provider Alexander Pryor is an 89 year old female who lives at the [facility] in independent living who presents to the ER on the advice of her PCP (Dr Coughlin) due to shortness of breath and hypoxia on exertion. Reportedly she was wheezing in the office and very short of breath. Difficult to get a good history timeline from the patient as she is vague when her symptoms seem to have started. She reports generally short of breath all the time since the start of the pandemic which she puts down to deconditioning. However when directly asking about Dr Coughlin's concern she is worse than usual she does report this may be worse over the last few days with associated chills. No cough. She denies choking/coughing on any food. She denies any chest pain, claudication, orthopnea, PND or palpations. In the ER here she desaturates to 85% on room air on exertion. She was given duonebs and solu-medrol for her wheezing although she denies any history of asthma or COPD. However she does report improvement in her symptoms with the duoneb. She was given ceftriaxone to cover for bacterial pneumonia/bronchitis. She was given Lasix 20mg IV which she reports is already making her urinate due to concern for pulmonary edema. Principal Diagnosis Acute CHF exacerbation Discharge Exam The patient is awake, alert and oriented 3, well developed and well nourished, normocephalic and atraumatic, lying in bed and in no acute distress. HEENT--PERRL, EOMI, mucous membranes and oropharynx mildly dry Neck--supple. No JVD. No bruits. Thyroid normal, trachea midline, no adenopathy. Heart--normal S1 and S2. No murmurs, rubs or gallops. Lungs--clear bilaterally, no respiratory distress, no accessory muscle use. Abdomen--normal bowel sounds and soft. Mild epigastric and left sided abdominal pain Extremities--no cyanosis or clubbing. No edema. Dermatologic--normal skin turgor, normal color, no abnormal lymph nodes, no r geraldo. Neurologic--cranial nerves II through XII grossly intact. Rheumatologic--normal range of motion. Psychiatric--normal affect. Discharge Data Allergies Allergy/AdvReac Type Severity Reaction Status Date / Time Penicillins Allergy Intermediate RASH Verified 11/07/21 12:24 adhesive Allergy Mild ADHESIVE Verified 11/07/21 12:24 TAPE-rash redness nickel Allergy Mild IRRITATION Verified 11/07/21 12:24 oxycodone AdvReac Severe SEVERE Verified 11/07/21 12:24 VOMITING tetracycline AdvReac Intermediate flushed Unverified 11/07/21 12:24 face ~ felt funny Consultations 11/07/21 16:55 ED Decision to Admit Stat Hospital Course (1) Community acquired pneumonia: Ruled out, procalcitonin was normal SOB was most likely due to CHF exacerbation given evidence of fluid overload on x ray (2) Acute heart failure with preserved ejection fraction: Low Na, heart healthy diet, fluid restrict 1500ml BNP WNL however raised from her prior baseline Lasix 20mg IV given in ER with patient reported good diuresis effect, will continue this daily TTE showed preserved EF I&Os Daily weights (3) SOB (shortness of breath): As above, suspect combination of CAP and CHF (4) Hypoxia: Mainly on exertion Secondary to CHF and CAP above. No indication for further steroids although will use duonebs PRN since she noted an improvement on this in the ER Aim O2 sats > 90%. Consider 2 step prior to discharge (5) Paroxysmal atrial fibrillation: Currently in NSR Monitor on telemetry Anticoagulation with Eliquis Rhythm control with amiodarone (6) GERD (gastroesophageal reflux disease): Continue pantoprazole 40mg PO daily (7) Sleep apnea: CPAP HS, may use her own if her brings it in. (8) Hypothyroidism: TSH WNL in August, no need to repeat Continue levothyroxine 125 mcg PO daily (9) HLD (hyperlipidemia): Continue simvastatin 20mg PO daily VTE Prophylaxis - Eliquis Diet - Low Na, heart healthy, fluid restrict 1500ml Disposition - observation status to med/tele Total Time Total Time Spent Total Time Spent (In Minutes): 35 min Discharge Plan Discharge Items Patient Disposition: Home - Home Health Services Reason For Visit: SOB/ACHY Discharge Diagnosis: acute CHF exacerbation Condition on Discharge: Good Activity: Resume your previous activity Non-emergency contact: Primary Care Provider Call non-emergency contact if: you have any medication questions Follow-up/Referrals: Brandon Coughlin MD [Primary Care Provider] - Diet: Regular and Heart Healthy Addtl Attending Provider Instructions: please make appointment to follow up with your metropolitan editor Pending Studies at Discharge: No Stand-Alone Forms: My [facility] T-ZONE, Smoking Cessation Medications and DC Order Prescriptions: New furosemide [Lasix] 20 mg tablet 20 mg PO DAILY Qty: 30 RF: 0 Continued Eliquis 5 mg tablet 5 mg PO BID Qty: 180 RF: 3 amiodarone 200 mg tablet 200 mg PO QAM Qty: 90 RF: 3 levothyroxine 125 mcg Tablet 125 mcg PO DAILYBB RF: 0 Multi-Day with Iron 18-400 mg-mcg Tablet 1 tab PO QAM RF: 0 simvastatin 20 mg Tablet 20 mg PO HS RF: 0 calcium carbonate-vitamin D3 [Calcium 500 With D] 500 mg(1,250mg) -400 unit Tablet 1 tab PO HS RF: 0 docusate sodium 100 mg Tablet 100 mg PO HS RF: 0 Benefiber Sugar Free (dextrin) 3 gram/4 gram Powder 3 g PO QAM RF: 0 pantoprazole 40 mg tablet,delayed release (DR/EC) 40 mg PO QAM RF: 0 Discharge Orders: Discharge Order (Routine); Ordered 11/08/21 Ordered By: Koki Moralez Admission Data Admit Date/Time: 11/07/21 17:01 Attending Provider: Koki Moralez Admit Provider: Patrice Romero Primary Care Provider: Brandon Coughlin Other Providers: Patrice Romero Coding Level of Care Code D/C DAY MANAGEMENT >30 MINS Diagnoses Community acquired pneumonia J18.9 Acute heart failure with preserved ejection fraction I50.31 SOB (shortness of breath) R06.02 Hypoxia R09.02 Paroxysmal atrial fibrillation I48.0 GERD (gastroesophageal reflux disease) K21.9 Sleep apnea G47.30 Hypothyroidism E03.9 HLD (hyperlipidemia) E78.5
[2021-11-08] MEDS ORDERED: cefTRIAXone SODIUM 2,000 MG in DEXTROSE 5% 50 ML IV SCH (16:00)
[2021-11-08] MEDS ORDERED: AZITHROMYCIN 250 MG TAB PO SCH (21:00)
== END 2021-11-08 16:41 | disposition home health service (06) ==
LOC: EDINP 09:32 → ED 09:32 → SUATTDRO 17:01 → 2N 17:55